=== PATIENT | male | born 1955 | race Caucasian/White ===

== ENCOUNTER → 2017-11-20 14:18 | Outpatient (CLI) | payer MEDICAID, SELFPAY ==
[2017-11-20 17:05] LABS: Absolute Neutrophil Count 2.7 X10^3/uL (2.0-7.7); Basophil# 0.02 X10^3/uL; Basophil% 0.5 % (0-1); Eosinophils% 2.5 % (0-5); Hematocrit 44.3 % (40-54); Hemoglobin 14.8 g/dl (13.0-16.5); Lymphocyte % 19.6 % (19-41); Mean Corp Hgb Conc 33.4 g/gl (32-36); Mean Corpuscular Hgb 29.9 pg (27.0-32.0); Mean Corpuscular Volume 89.5 fL (80-94); Monocyte# 0.47 X10^3/uL; Monocyte% 11.5 % (0-10); Neutrophil # 2.67 X10^3/uL (2.7-7.7); Neutrophil % 65.4 % (47-70); Platelet Count 147 K/mm3 (150-450); RBC Distribution Width SD 42.3 fl (35.1-43.9); Red Blood Count 4.95 M/mm3 (4.6-6.2); White Blood Count 4.1 K/mm3 (4.4-11.0)
[2017-11-20 17:48] LABS: POSITIVE COUNT NO; POSITIVE DIFFERENTIAL NO; POSITIVE MORPHOLOGY NO
[2017-11-20 17:51] LABS: ALB/GLOB Ratio 1.3 RATIO (0.9-2.4); AST(SGOT) 16 U/L (15-37); Alanine Aminotransfer ALT/SGPT 28 U/L (16-61); Albumin, Serum 3.9 g/dL (3.2-5.0); Alkaline Phosphatase 149 U/L (45-117); Anion Gap 8 (5-15); BUN 17 mg/dL (7-18); BUN/Creat Ratio 19.2 RATIO (10-20); Calcium,Total 8.5 mg/dL (8.5-10.1); Chloride 110 mmol/L (98-107); Creatinine, Serum 0.89 mg/dL (0.70-1.30); EST Glomerular Filtration Rate 92 mL/min (>60); Est Glom Filt Rate - Afr Amer 111 mL/min (>60); Glucose 129 mg/dL (74-106); PSA,Total - Annual Screen 0.91 ng/mL (0.00-4.00); Potassium 3.9 mmol/L (3.5-5.1); Protein, Total 6.9 g/dL (6.4-8.2); Sodium Level 144 mmol/L (136-145); Thyroid Stim Hormone (TSH) 2.35 uIU/mL (0.358-3.74)
== END ==
PROVIDERS: Family Provider Family Medicine Geriatric Medicine; PCP Family Medicine Geriatric Medicine; Visit Provider Family Medicine Geriatric Medicine
DX: R53.83 Other fatigue (principal); Z12.5 Encounter for screening for malignant neoplasm of prostate
CPT/HCPCS: 36415; 80053; 84153; 84443; 85025; G0103

== ENCOUNTER → 2018-06-03 16:30 | Outpatient (CLI) | payer MEDICAID, SELFPAY ==
[2018-06-03 17:11] LABS: Absolute Lymphocyte Count 0.79 X10^3/ul (0.83-4.51); Basophil# 0.01 X10^3/uL; Basophil% 0.2 % (0-1); Eosinophil# 0.06 X10^3/uL; Eosinophils% 1.4 % (0-5); Hematocrit 44.8 % (40-54); Hemoglobin 15.3 g/dl (13.0-16.5); Lymphocyte # 0.79 X10^3/ul (4.0); Lymphocyte % 18.4 % (19-41); Mean Corp Hgb Conc 34.2 g/gl (32-36); Mean Corpuscular Hgb 29.5 pg (27.0-32.0); Mean Corpuscular Volume 86.3 fL (80-94); Mean Platelet Vol. 10.8 fl (6.2-12.0); Monocyte# 0.42 X10^3/uL; Monocyte% 9.8 % (0-10); Platelet Count 149 K/mm3 (150-450); RBC Distribution Width CV 13.1 % (11.6-14.6); RBC Distribution Width SD 41.6 fl (35.1-43.9); Red Blood Count 5.19 M/mm3 (4.6-6.2); White Blood Count 4.3 K/mm3 (4.4-11.0)
[2018-06-03 17:14] LABS: POSITIVE COUNT NO; POSITIVE DIFFERENTIAL NO; POSITIVE MORPHOLOGY NO
[2018-06-03 17:27] LABS: ALB/GLOB Ratio 1.5 RATIO (0.9-2.4); AST(SGOT) 17 U/L (15-37); Alanine Aminotransfer ALT/SGPT 29 U/L (16-61); Albumin, Serum 4.2 g/dL (3.2-5.0); Alkaline Phosphatase 170 U/L (45-117); Anion Gap 5 (5-15); BUN 16 mg/dL (7-18); BUN/Creat Ratio 18.1 RATIO (10-20); Calcium,Total 8.4 mg/dL (8.5-10.1); Chloride 111 mmol/L (98-107); Creatinine, Serum 0.88 mg/dL (0.70-1.30); EST Glomerular Filtration Rate 92 mL/min (>60); Est Glom Filt Rate - Afr Amer 112 mL/min (>60); Globulin 2.8 g/dL (2.2-4.2); Glucose 128 mg/dL (74-106); Potassium 3.8 mmol/L (3.5-5.1); Sodium Level 141 mmol/L (136-145); Thyroid Stim Hormone (TSH) 1.79 uIU/mL (0.358-3.74)
== END ==
PROVIDERS: Family Provider Family Medicine Geriatric Medicine; PCP Family Medicine Geriatric Medicine; Visit Provider Family Medicine Geriatric Medicine
DX: R53.83 Other fatigue (principal)
CPT/HCPCS: 36415; 80053; 84443; 85025

== ENCOUNTER → 2019-01-21 15:12 | Outpatient (CLI) | payer MEDICARE, MEDICAID, SELFPAY ==
[2019-01-21 17:30] LABS: Absolute Lymphocyte Count 0.64 X10^3/uL (0.83-4.51); Absolute Neutrophil Count 2.9 X10^3/uL (2.0-7.7); Basophil# 0.02 X10^3/uL; Basophil% 0.5 % (0-1); Eosinophil# 0.06 X10^3/uL; Eosinophils% 1.5 % (0-5); Hematocrit 46.2 % (40-54); Hemoglobin 15.5 g/dL (13.0-16.5); Lymphocyte # 0.64 X10^3/ul (4.0); Lymphocyte % 15.9 % (19-41); Mean Corp Hgb Conc 33.5 g/dL (32-36); Mean Corpuscular Volume 89.4 fL (80-94); Mean Platelet Vol. 11.3 fl (6.2-12.0); Monocyte# 0.36 X10^3/uL; NRBC Flagged by Analyzer 0 % (0-5); Neutrophil # 2.92 X10^3/uL (2.7-7.7); Neutrophil % 72.6 % (47-70); Platelet Count 147 K/mm3 (150-450); RBC Distribution Width CV 12.4 % (11.6-14.6); RBC Distribution Width SD 40.8 fl (35.1-43.9); Red Blood Count 5.17 M/mm3 (4.6-6.2)
[2019-01-21 18:07] LABS: Vitamin D,25 Hydroxy 15.1 ng/mL (29.95-100.01)
[2019-01-21 18:16] LABS: ALB/GLOB Ratio 1.5 RATIO (0.9-2.4); AST(SGOT) 16 U/L (15-37); Alanine Aminotransfer ALT/SGPT 34 U/L (16-61); Albumin, Serum 4.1 g/dL (3.2-5.0); Alkaline Phosphatase 161 U/L (45-117); Anion Gap 6 (5-15); BUN 16 mg/dL (7-18); BUN/Creat Ratio 17.9 RATIO (10-20); Calcium,Total 8.3 mg/dL (8.5-10.1); Chloride 109 mmol/L (98-107); Creatinine, Serum 0.89 mg/dL (0.70-1.30); EST Glomerular Filtration Rate 91 mL/min (>60); Est Glom Filt Rate - Afr Amer 110 mL/min (>60); Globulin 2.8 g/dL (2.2-4.2); Glucose 124 mg/dL (74-106); Potassium 3.8 mmol/L (3.5-5.1); Protein, Total 6.9 g/dL (6.4-8.2); Sodium Level 141 mmol/L (136-145); Thyroid Stim Hormone (TSH) 2.08 uIU/mL (0.358-3.74)
== END ==
PROVIDERS: Family Provider Family Medicine Geriatric Medicine; PCP Family Medicine Geriatric Medicine; Visit Provider Family Medicine Geriatric Medicine
DX: E55.9 Vitamin D deficiency, unspecified (principal); R53.83 Other fatigue
CPT/HCPCS: 36415; 80053; 82306; 84443; 85025

== ENCOUNTER → 2019-07-20 15:00 | Outpatient (CLI) | payer MEDICARE, MEDICAID, SELFPAY ==
[2019-07-20 16:29] LABS: Absolute Lymphocyte Count 0.63 X10^3/uL (0.83-4.51); Basophil# 0.04 X10^3/uL; Basophil% 0.4 % (0-1); Hematocrit 44.7 % (40-54); Hemoglobin 15.3 g/dL (13.0-16.5); Lymphocyte # 0.63 X10^3/ul (4.0); Lymphocyte % 6.3 % (19-41); Mean Corp Hgb Conc 34.2 g/dL (32-36); Mean Corpuscular Hgb 30.4 pg (27.0-32.0); Mean Corpuscular Volume 88.7 fL (80-94); Mean Platelet Vol. 11.3 fl (6.2-12.0); Monocyte# 1.09 X10^3/uL; NRBC Flagged by Analyzer 0 % (0-5); Neutrophil # 8.01 X10^3/uL (2.7-7.7); Neutrophil % 80.5 % (47-70); Platelet Count 189 K/mm3 (150-450); RBC Distribution Width CV 12.1 % (11.6-14.6); RBC Distribution Width SD 39.2 fl (35.1-43.9); Red Blood Count 5.04 M/mm3 (4.6-6.2)
[2019-07-20 16:51] LABS: Vitamin D,25 Hydroxy 19.9 ng/mL
[2019-07-20 16:54] LABS: ALB/GLOB Ratio 1.1 RATIO (0.9-2.4); AST(SGOT) 20 U/L (15-37); Alanine Aminotransfer ALT/SGPT 55 U/L (16-61); Albumin, Serum 3.8 g/dL (3.2-5.0); Alkaline Phosphatase 177 U/L (45-117); Anion Gap 8 (5-15); BUN 21 mg/dL (7-18); BUN/Creat Ratio 25.8 RATIO (10-20); Calcium,Total 9.2 mg/dL (8.5-10.1); Chloride 103 mmol/L (98-107); Creatinine, Serum 0.81 mg/dL (0.70-1.30); EST Glomerular Filtration Rate 101 mL/min (>60); Est Glom Filt Rate - Afr Amer 122 mL/min (>60); Globulin 3.6 g/dL (2.2-4.2); Glucose 152 mg/dL (74-106); Potassium 3.6 mmol/L (3.5-5.1); Protein, Total 7.4 g/dL (6.4-8.2); Sodium Level 138 mmol/L (136-145); Thyroid Stim Hormone (TSH) 1.82 uIU/mL (0.358-3.74)
[2019-07-20 21:00] LABS: M R Staph aureus DNA By PCR Negative (Negative); Staph aureus DNA By PCR NEGATIVE (Negative)
[2019-07-20 21:01] LABS: Probe Check PASS; Specimen Processing Control PASS
== END ==
PROVIDERS: PCP Family Medicine Geriatric Medicine; Visit Provider Family Medicine Geriatric Medicine
DX: R53.83 Other fatigue (principal); E55.9 Vitamin D deficiency, unspecified; B95.62 Methicillin resistant Staphylococcus aureus infection as the cause of diseases classified elsewhere
CPT/HCPCS: 36415; 80053; 82306; 84443; 85025; 87070; 87077; 87205; 87640

== ENCOUNTER 2019-09-09 14:41 | Outpatient (RCR) | payer MEDICARE, MEDICAID, SELFPAY ==
[2019-09-09 15:25] VITALS: BP 135/84; PULSE 101; RESP 16; TEMP 36.6
--- NOTE | 2019-09-09 16:56 | HP.PCM_ITS ---
(1) Nonhealing surgical wound Status: Acute Current Visit: Yes Code(s): T81.89XA - Other complications of procedures, not elsewhere classified, initial encounter (2) Sebaceous cyst Status: Acute Current Visit: Yes Code(s): L72.3 - Sebaceous cyst (3) Tobacco abuse Status: Acute Current Visit: Yes Code(s): Z72.0 - Tobacco use (4) Anxiety Status: Acute Current Visit: Yes Code(s): F41.9 - Anxiety disorder, u nspecified (5) Depression Status: Acute Current Visit: Yes Code(s): F32.9 - Major depressive disorder, single episode, unspecified (6) Hyperlipidemia Status: Acute Current Visit: Yes Code(s): E78.5 - Hyperlipidemia, unspecified History of Present Illness Date of Service: 09/09/19 Chief Complaint: Nonhealing surgical wound status post I&D 6 weeks ago right upper back History of Wound: This is a 63-year-old white male who presents to the wound healing center today with a complaint of nonhealing wound to his right upper back status post incision and drainage of a sebaceous cyst by his primary care 6 weeks ago. He has a past medical history as listed above. For wound care he has been utilizing iodoform gauze and packing wet-to-dry dressings. He states that he has been on multiple antibiotics over the past 6 weeks and that site continues to have delayed wound healing. He denies any current symptoms of i nfection either localized or systemic. He denies any other acute concerns at this time. All other systems reviewed and negative with exception of those listed above. For wound care, his only member has been assisting with dressing changes at home. Past Medical History Allergies/Adverse Reactions: Allergies No Known Allergies Allergy (Verified 09/09/19 15:48) Home Medications: Ambulatory Orders Medication Instructions Recorded Bupropion HCl [Wellbutrin Xl] 150 mg PO BID 09/09/19 Clonazepam 0.5 mg PO TID PRN 09/09/19 Risperidone [Risperdal] 2 mg PO BID 09/09/19 Simvastatin 40 mg PO DAILY 09/09/19 traZODone [Desyrel] 50 mg PO QHS 09/09/19 Smoking Status: Current every day smoker Review of Systems Constitutional: Denies: Chills, Fever, Weight Change Eyes: Denies: Pain, Vision Change HEENT: Denies: Difficulty Hearing, Difficulty Swallowing, Sinus Congestion Cardiovascular: Denies: Chest Pain, Palpitations Respiratory: Denies: Cough, Shortness of Breath Gastrointestinal: Denies: Diarrhea, Nausea, Vomiting Genitourinary: Denies: Dysuria, Hematuria Skin: Reports: Wounds - See HPI Endocrine: Denies: Heat/ Cold Intolerance, Polydipsia, Polyuria Hematologic/ Lymphatic: Denies: Easy Bruising, Easy Bleeding - Physical Exam Vital Signs Temp Pulse Resp BP 97.9 F 101 H 16 135/84 H 09/09/19 15:25 09/09/19 15:25 09/09/19 15:25 09/09/19 15:25 General: Alert, Oriented x3, Cooperative, No apparent distress HEENT: Atraumatic Oral: Moist Mucosa Neck: Supple, No JVD Lungs: Diminished, Wheezes Cardiovascular: Regular rate, Regular Rhythm, Normal S1, Normal S2, No murmurs, No Ectopic Activity Abdomen: Soft, Non Tender Extremities: No clubbing, No cyanosis, No edema Skin: Ulcer/ Wound - Nonhealing wound with large amount of adherent slough right upper back status post incision and drainage sebaceous cyst, no drainage or foul smelling discharge noted at this time Wound Measurements and Assessment WC - Nurse 1 - General Ulcer Measurement Start: 09/09/19 15:25 Freq: Status: Active Protocol: Activity Type Activity Date Activity User E-Sign Co-Sign Detail Recorded Client Recorded Date Recorded By Document 09/09/19 15:25 [facility] [id number] 09/09/19 15:47 [facility] 09/09/19 15:25 Wound Center Nurse 1 [Ulcer Assessment] #1- R SCAPULA -Combined with other wound No -Current Size (cm) - Length 0.5 -Current Size (cm) - Width 1.9 -Current Size (cm) - Depth 0.7 -Total Square Cm 0.95 -Date of Last Picture (Recall this 09/09/19 field) -Photo Taken Yes -Epithelialization None Present -Tunneling No -Undermining/Tunneling Yes -Undermining/Tunneling Starts (O' 9 clock) -Undermining/Tunneling Ends (O'clock) 3 -Maximum Distance (cm) 1 -Undermining/Tunneling Starts #2 (O' 4 clock) -Undermining/Tunneling Ends #2 (O' 8 clock) -Maximum Distance #2 (cm) 0.6 -Circular Undermining No -Exudate Amt Small -Exudate Type Serous -Wound Margin Thickened & Rolled Under -Granulation Amt Small (1-33%) -Granulation Quality [place] -Slough/Fibrin Yes -Necrosis Amt Large (67-100%) -Necrotic Tissue Type Adherent Slough -Texture (Carrie-wound Skin Appearance) Assessed, Scarring -Moisture (Carrie-wound Skin Appearance Assessed ) -Color (Carrie-wound Skin Appearance) Assessed -Temperature (Carrie-wound Skin No Abnormality Appearance) (Pt Warm) -Tenderness on Palpation (Carrie-wound No Skin Appearance) -Ulcer Cleansing Rinsed/ Irrigated with Saline -Foul Odor after Cleansing No -Anesthetic Used 5% Lidocaine Gel WC - Nurse 2 - General Ulcer CM Notes Start: 09/09/19 15:25 Freq: Status: Active Protocol: Activity Type Activity Date Activity User E-Sign Co-Sign Detail Recorded Client Recorded Date Recorded By Document 09/09/19 16:16 MW [id number] 09/09/19 16:27 MW 09/09/19 16:16 Wound Center Nurse 2 [Procedure/Treatment] -Time 16:16 -Correct Patient Yes -Correct Side, Site, Position Yes -Correct Procedure Yes -Procedure Performed Yes -Type of Procedure Debridement -Clinical Debridement Subcutaneous -Post Debridement Size (cm) - Length 0.7 -Post Debridement Size (cm) - Width 2.0 -Post Debridement Size (cm) - Depth 0.8 -Total Square (cm) 1.40 -Wound/Ulcer Outcome Not Healed -Ulcer Cleansing Rinsed/ Irrigated with Saline -Foul Odor after Cleansing No -Bioengineered Tissue No -Bleeding Controlled with Pressure -Offloading No -Treatment Response Procedure Tolerated Well [See Physician Procedure note for Specifics] Pain Scale: 0-10 Numeric [Pain] -Is Patient Pain Free? Yes Neurological: Neuro grossly intact Psych/Mental Status: Normal Affect, Appropriate, Alert and oriented to time, place, person, mood and affect Debridement Note Post-Debridement Measurements/Treatment WC - Nurse 2 - General Ulcer CM Notes Start: 09/09/19 15:25 Freq: Status: Active Protocol: Activity Type Activity Date Activity User E-Sign Co-Sign Detail Recorded Client Recorded Date Recorded By Document 07/30/20 16:16 MW [id number] 09/09/19 16:27 MW 09/09/19 16:16 Wound Center Nurse 2 #1- R SCAPULA -Time 16:16 -Correct Patient Yes -Correct Side, Site, Position Yes -Correct Procedure Yes -Procedure Performed Yes -Type of Procedure Debridement -Clinical Debridement Subcutaneous -Post Debridement Size (cm) - Length 0.7 -Post Debridement Size (cm) - Width 2.0 -Post Debridement Size (cm) - Depth 0.8 -Total Square (cm) 1.40 -Wound/Ulcer Outcome Not Healed -Ulcer Cleansing Rinsed/ Irrigated with Saline -Foul Odor after Cleansing No -Bioengineered Tissue No -Bleeding Controlled with Pressure -Offloading No -Treatment Response Procedure Tolerated Well Pain Scale: 0-10 Numeric Is Patient Pain Free? Yes Wound debrided: Nonhealing surgical wound right upper back status post incision and drainag Laterality: Right Type of Debridement: Excisional debridement Anesthesia Used: 5% Lidocaine Gel Depth: in the subcutaneous layer Percentage of wound debrided: 100 Instrument Used: 7mm curette Tissue Removed: Slough and devitalized tissue Severity: Fat Layer Exposed Amount of bleeding with debridement: Mild Bleeding Controlled with: Pressure Patient tolerated procedure well Assessment/Plan Active Problems Nonhealing surgical wound (Acute) Sebaceous cyst (Acute) Tobacco abuse (Acute) Anxiety (Acute) Depression (Acute) Hyperlipidemia (Acute) Assessment: See above diagnoses Plan: The patient was seen and examined at the wound center today and was updated on the plan of care. A subcutaneous debridement was performed today. The patient tolerated the procedure well. The patients wound care will consist of: Application of silver cell rope packed and changed daily, will apply for the use of a snap VAC. Given the delayed wound healing and failure of wound to heal with standard wound care in the last 6 weeks will apply for an advanced skin substitute. Wound cultures were collected. Baseline bloodwork held. Patient educated on the importance of diet on wound healing and instructed to increase protein and vitamin C intake. Patient verbalized understanding. Patient will follow up at wound healing center in one week or sooner if needed. This note was generated with [employer] software. It may contain incorrect words, spelling, and punctuation that were not noted in checking the note before signing. Office Visits / Consults: [id number] OV L3 New [id number]: [id number] Denice subq tissue 20 sq cm/<
== END 2019-09-10 23:59 ==
LOC: WC 14:41
PROVIDERS: PCP Family Medicine Geriatric Medicine; Referring Provider Nurse Practitioner; Visit Provider Nurse Practitioner
DX: T81.89XA Other complications of procedures, not elsewhere classified, initial encounter (principal); Y83.8 Other surgical procedures as the cause of abnormal reaction of the patient, or of later complication, without mention of misadventure at the time of the procedure; E78.5 Hyperlipidemia, unspecified; F32.9 Major depressive disorder, single episode, unspecified; F41.9 Anxiety disorder, unspecified; Z79.899 Other long term (current) drug therapy; F17.200 Nicotine dependence, unspecified, uncomplicated
CPT/HCPCS: 11042; 87070; 87075; 87205; 99203; G0463

== ENCOUNTER 2019-10-07 14:30 | Outpatient (RCR) | payer MEDICARE, MEDICAID, SELFPAY ==
[2019-09-11 00:43] VITALS: BP 135/84; PULSE 101; RESP 16; TEMP 36.6
[2019-09-16 15:30] VITALS: BP 148/85; PULSE 100; RESP 16; TEMP 36.6
--- NOTE | 2019-09-16 19:47 | PCM.WC.PN ---
(1) Nonhealing surgical wound Status: Acute Current Visit: Yes Code(s): T81.89XA - Other complications of procedures, not elsewhere classified, initial encounter (2) Anxiety Status: Acute Current Visit: No Code(s): F41.9 - Anxiety disorder, unspecified (3) Sebaceous cyst Status: Acute Current Visit: Yes Code(s): L72.3 - Sebaceous cyst (4) Depression Status: Acute Current Visit: No Code(s): F32.9 - Major depressive disorder, single episode, unspecified (5) Hyperlipidemia Status: Acute Current Visit: No Code(s): E78.5 - Hyperlipidemia, unspecified (6) Tobacco abuse Status: Acute Current Visit: No Code(s): Z72.0 - Tobacco use Type of Wound Date of Service: 09/16/19 Chief Complaint: Nonhealing surgical wound status post I&D 6 weeks ago right upper back History of Wound: This is a 63-year-old white male who presents to the wound healing center today with a complaint of nonhealing wound to his right upper back status post incision and drainage of a sebaceous cyst by his primary care 6 weeks ago. He has a past medical history as listed above. For wound care he has been utilizing iodoform gauze and packing wet-to-dry dressings. He states that he has been on multiple antibiotics over the past 6 weeks and that site continues to have delayed wound healing. He denies any current symptoms of infection either localized or systemic. He denies any other acute concerns at this time. All other systems reviewed and negative with exception of those listed above. For wound care, his only member has been assisting with dressing changes at home. Progress of Wound: 09/16/2019?no new concerns, snap VAC was approved and will be applied today - Physical Exam Vital Signs Temp Pulse Resp BP 98 F 100 16 148/85 H 09/16/19 15:30 09/16/19 15:30 09/16/19 15:30 09/16/19 15:30 General: Alert, Oriented x3, Cooperative, No apparent distress HEENT: Atraumatic Oral: Moist Mucosa Lungs: Clear to auscultation Cardiovascular: Regular rate Abdomen: Soft, Non Tender Extremities: No clubbing, No cyanosis, No edema Skin: Ulcer/ Wound - See nursing documentation, wound to right upper back with slough and devitalized tissue, less undermining this week. Wound Measurements and Assessment WC - Nurse 1 - General Ulcer Measurement Start: 09/16/19 15:30 Freq: Status: Active Protocol: Activity Type Activity Date Activity User E-Sign Co-Sign Detail Recorded Client Recorded Date Recorded By Document 09/16/19 15:30 [facility] [id number] 09/16/19 15:38 [facility] 09/16/19 15:30 Wound Center Nurse 1 [Ulcer Assessment] #1- R SCAPULA -Combined with other wound No -Current Size (cm) - Length 0.5 -Current Size (cm) - Width 1.6 -Current Size (cm) - Depth 0.7 -Total Square Cm 0.80 -Photo Taken No -Epithelialization Small 1-33% -Tunneling Yes -Tunneling Position (O'clock) 1 -Tunneling Distance (cm) 0.6 -Undermining/Tunneling No -Circular Undermining No -Exudate Amt Small -Exudate Type Serous -Wound Margin Thickened -Granulation Amt Medium (34-66%) -Granulation Quality Red -Slough/Fibrin Yes -Necrosis Amt Small (1-33%) -Necrotic Tissue Type Adherent Slough -Texture (Carrie-wound Skin Appearance) Assessed, Scarring -Moisture (Carrie-wound Skin Appearance Assessed ) -Color (Carrie-wound Skin Appearance) Assessed -Temperature (Carrie-wound Skin No Abnormality Appearance) (Pt Warm) -Tenderness on Palpation (Carrie-wound No Skin Appearance) -Ulcer Cleansing Rinsed/ Irrigated with Saline -Foul Odor after Cleansing No -Anesthetic Used 5% Lidocaine Gel WC - Nurse 2 - General Ulcer CM Notes Start: 09/16/19 15:30 Freq: Status: Active Protocol: Activity Type Activity Date Activity User E-Sign Co-Sign Detail Recorded Client Recorded Date Recorded By Document 09/16/19 16:04 MW [id number] 09/16/19 16:10 MW 09/16/19 16:04 Wound Center Nurse 2 [Procedure/Treatment] -Time 16:05 -Correct Patient Yes -Correct Side, Site, Position Yes -Correct Procedure Yes -Procedure Performed Yes -Type of Procedure Debridement -Clinical Debridement Subcutaneous -Post Debridement Size (cm) - Length 0.9 -Post Debridement Size (cm) - Width 1.8 -Post Debridement Size (cm) - Depth 0.7 -Total Square (cm) 1.62 -Wound/Ulcer Outcome Not Healed -Ulcer Cleansing Rinsed/ Irrigated with Saline -Foul Odor after Cleansing No -Bioengineered Tissue No -Bleeding Controlled with Pressure -Other UNDERMINING 11- 2, 0.5CM -Offloading No -Treatment Response Procedure Tolerated Well [See Physician Procedure note for Specifics] Pain Scale: 0-10 Numeric [Pain] -Is Patient Pain Free? Yes Neurological: Neuro grossly intact Psych/Mental Status: Normal Affect, Appropriate, Alert and oriented to time, place, person, mood and affect Debridement Note Post-Debridement Measurements/Treatment WC - Nurse 2 - General Ulcer CM Notes Start: 09/16/19 15:30 Freq: Status: Active Protocol: Activity Type Activity Date Activity User E-Sign Co-Sign Detail Recorded Client Recorded Date Recorded By Document 09/16/19 16:04 MW [id number] 09/16/19 16:10 MW 09/16/19 16:04 Wound Center Nurse 2 #1- R SCAPULA -Time 16:05 -Correct Patient Yes -Correct Side, Site, Position Yes -Correct Procedure Yes -Procedure Performed Yes -Type of Procedure Debridement -Clinical Debridement Subcutaneous -Post Debridement Size (cm) - Length 0.9 -Post Debridement Size (cm) - Width 1.8 -Post Debridement Size (cm) - Depth 0.7 -Total Square (cm) 1.62 -Wound/Ulcer Outcome Not Healed -Ulcer Cleansing Rinsed/ Irrigated with Saline -Foul Odor after Cleansing No -Bioengineered Tissue No -Bleeding Controlled with Pressure -Other UNDERMINING 11- 2, 0.5CM -Offloading No -Treatment Response Procedure Tolerated Well Pain Scale: 0-10 Numeric Is Patient Pain Free? Yes Wound debrided: Wound right upper upper back Type of Debridement: Excisional debridement Anesthesia Used: 5% Lidocaine Gel Depth: in the subcutaneous layer Percentage of wound debrided: 100 Instrument Used: 5mm curette Tissue Removed: Slough and devitalized tissue Severity: Fat Layer Exposed Amount of bleeding with debridement: Mild Bleeding Controlled with: Pressure Patient tolerated procedure well Assessment/Plan Active Problems Nonhealing surgical wound (Acute) Sebaceous cyst (Acute) Assessment: See above diagnoses Plan: The patient was seen and examined at the wound center today and was updated on the plan of care. A subcutaneous debridement was performed today. The patient tolerated the procedure well. The patients wound care will consist of: Application of snap VAC Today change twice weekly. Given the delayed wound healing and failure of wound to heal with standard wound care in the last 6 weeks will apply for an advanced skin substitute. Wound cultures were collected prior negative. Baseline bloodwork held. Patient educated on the importance of diet on wound healing and instructed to increase protein and vitamin C intake. Patient verbalized understanding. Patient will follow up at wound healing center in one week or sooner if needed. This note was generated with [employer] dictation software. It may contain incorrect words, spelling, and punctuation that were not noted in checking the note before signing. [id number]: [id number] Denice subq tissue 20 sq cm/<
[2019-09-21 13:18] VITALS: BP 142/84; PULSE 103; RESP 16; TEMP 36.5
[2019-09-23 15:11] VITALS: BP 125/83; PULSE 110; RESP 20; TEMP 36.7
--- NOTE | 2019-09-23 21:25 | PN.PCM_ITS ---
(1) Nonhealing surgical wound Status: Acute Code(s): T81.89XA - Other complications of procedures, not elsewhere classified, initial encounter (2) Anxiety Status: Acute Code(s): F41.9 - Anxiety disorder, unspecified (3) Sebaceous cyst Status: Acute Code(s): L72.3 - Sebaceous cyst (4) Depression Status: Acute Code(s): F32.9 - Major depressive disorder, single episode, unspecified (5) Hyperlipidemia Status: Acute Code(s): E78.5 - Hyperlipidemia, unspecified (6) Tobacco abuse Status: Acute Code(s): Z72.0 - Tobacco use Type of Wound Date of Service: 09/23/19 Chief Complaint: Nonhealing surgical wound status post I&D 6 weeks ago right upper back History of Wound: This is a 63-year-old white male who presents to the wound healing center today with a complaint of nonhealing wound to his right upper back status post incision and drainage of a sebaceous cyst by his primary care 6 weeks ago. He has a past medical history as listed above. For wound care he has been utilizing iodoform gauze and packing wet-to-dry dressings. He states that he has been on multiple antibiotics over the past 6 weeks and that site continues to have delayed wound healing. He denies any current symptoms of infection either localized or systemic. He denies any other acute concerns at this time. All other systems reviewed and negative with exception of those listed above. For wound care, his only member has been assisting with dressing changes at home. Progress of Wound: 09/16/2019?no new concerns, snap VAC was approved and will be applied today. 09/23/19-no new concerns, tolerating VAC well - Physical Exam Vital Signs Temp Pulse Resp BP 98.1 F 110 H 20 H 125/83 H 09/23/19 15:11 09/23/19 15:11 09/23/19 15:11 09/23/19 15:11 General: Alert, Oriented x3, Cooperative, No apparent distress HEENT: Atraumatic Oral: Moist Mucosa Lungs: Clear to auscultation Cardiovascular: Regular rate Extremities: No clubbing, No cyanosis, No edema Skin: Ulcer/ Wound - see nursing documentation, slough and devitalized tissue Musculoskeletal: No Tenderness to Palpation of Joints or Extremities Neurological: Neuro grossly intact Psych/Mental Status: Normal Affect, Appropriate, Alert and oriented to time, place, person, mood and affect Debridement Note Post-Debridement Measurements/Treatment WC - Nurse 2 - General Ulcer CM Notes Start: 09/16/19 15:30 Freq: Status: Active Protocol: Activity Type Activity Date Activity User E-Sign Co-Sign Detail Recorded Client Recorded Date Recorded By Document 09/16/19 16:04 MW [id number] 09/16/19 16:10 MW Document 09/23/19 15:31 MW [id number] 09/23/19 15:34 MW 09/16/19 09/23/19 16:04 15:31 Wound Center Nurse 2 #1- R SCAPULA -Time 16:05 15:32 -Correct Patient Yes Yes -Correct Side, Site, Position Yes Yes -Correct Procedure Yes Yes -Procedure Performed Yes Yes -Type of Procedure Debridement Debridement -Clinical Debridement Subcutaneous Subcutaneous -Post Debridement Size (cm) - Length 0.9 0.8 -Post Debridement Size (cm) - Width 1.8 1.4 -Post Debridement Size (cm) - Depth 0.7 0.7 -Total Square (cm) 1.62 1.12 -Wound/Ulcer Outcome Not Healed Not Healed -Ulcer Cleansing Rinsed/ Rinsed/ Irrigated with Irrigated with Saline Saline -Foul Odor after Cleansing No No -Bioengineered Tissue No No -Bleeding Controlled with Pressure Pressure -Other UNDERMINING 11- 2, 0.5CM -Offloading No No -Treatment Response Procedure Procedure Tolerated Well Tolerated Well Pain Scale: 0-10 Numeric Is Patient Pain Free? Yes Yes Wound debrided: Right upper back wound Type of Debridement: Excisional debridement Anesthesia Used: 5% Lidocaine Gel Depth: in the subcutaneous layer Percentage of wound debrided: 100 Instrument Used: 3mm curette, 5mm curette Tissue Removed: slough and devitalized tissue Severity: Fat Layer Exposed Amount of bleeding with debridement: Mild Bleeding Controlled with: Pressure Patient tolerated procedure well Assessment/Plan Assessment: See above diagnoses Plan: The patient was seen and examined at the wound center today and was updated on the plan of care. A subcutaneous debridement was performed today. The patient tolerated the procedure well. The patients wound care will consist of: Application of snap VAC Today change twice weekly. Given the delayed wound healing and failure of wound to heal with standard wound care in the last 6 weeks will apply for an advanced skin substitute. Wound cultures were collected prior negative. Baseline bloodwork held. Patient educated on the importance of diet on wound healing and instructed to increase protein and vitamin C intake. Patient verbalized understanding. Patient will follow up at wound healing center in one week or sooner if needed. This note was generated with [employer] dictation software. It may contain incorrect words, spelling, and punctuation that were not noted in checking the note before signing. [id number]: [id number] Denice subq tissue 20 sq cm/<
[2019-09-28 15:08] VITALS: BP 136/82; PULSE 97; RESP 18; TEMP 36.7
[2019-09-30 15:00] VITALS: BP 138/90; PULSE 88; RESP 111; TEMP 36.8
--- NOTE | 2019-09-30 17:10 | PN.PCM_ITS ---
(1) Nonhealing surgical wound Status: Acute Current Visit: Yes Code(s): T81.89XA - Other complications of procedures, not elsewhere classified, initial encounter (2) Anxiety Status: Acute Current Visit: No Code(s): F41.9 - Anxiety disorder, unspecified (3) Sebaceous cyst Status: Acute Current Visit: Yes Code(s): L72.3 - Sebaceous cyst (4) Depression Status: Acute Current Visit: No Code(s): F32.9 - Major depressive disorder, single episode, unspecified (5) Hyperlipidemia Status: Acute Current Visit: No Code(s): E78.5 - Hyperlipidemia, unspecified (6) Tobacco abuse Status: Acute Current Visit: No Code(s): Z72.0 - Tobacco use Type of Wound Date of Service: 09/30/19 Chief Complaint: Nonhealing surgical wound status post I&D 6 weeks ago right upper back History of Wound: This is a 63-year-old white male who presents to the wound healing center today with a complaint of nonhealing wound to his right upper back status post incision and drainage of a sebaceous cyst by his primary care 6 weeks ago. He has a past medical history as listed above. For wound care he has been utilizing iodoform gauze and packing wet-to-dry dressings. He states that he has been on multiple antibiotics over the past 6 weeks and that site continues to have delayed wound healing. He denies any current symptoms of infection either localized or systemic. He denies any other acute concerns at this time. All other systems reviewed and negative with exception of those listed above. For wound care, his only member has been assisting with dressing changes at home. Progress of Wound: 09/16/2019?no new concerns, snap VAC was approved and will be applied today. 09/23/19-no new concerns, tolerating VAC well. 09/30/19-patient complains of surrounding tissue around the back being irritated and itchy, otherwise no new concerns - Physical Exam Vital Signs Temp Pulse Resp BP 98.3 F 88 111 H 138/90 H 09/30/19 15:00 09/30/19 15:00 09/30/19 15:00 09/30/19 15:00 General: Alert, Oriented x3, Cooperative, No apparent distress HEENT: Atraumatic Oral: Moist Mucosa Lungs: Clear to auscultation, Normal air movement Cardiovascular: Regular rate Abdomen: Soft, Non Tender Extremities: No clubbing, No cyanosis, No edema Skin: Ulcer/ Wound - See nursing documentation, right upper back wound with adherent slough, no surrounding tissue is excoriated and erythematous consistent with that of dermatitis Wound Measurements and Assessment WC - Nurse 1 - General Ulcer Measurement Start: 09/16/19 15:30 Freq: Status: Active Protocol: Activity Type Activity Date Activity User E-Sign Co-Sign Detail Recorded Client Recorded Date Recorded By Document 09/28/19 15:08 DL [id number] 09/28/19 15:12 DL Document 09/30/19 15:00 DL [id number] 09/30/19 15:06 DL 09/28/19 09/30/19 15:08 15:00 Wound Center Nurse 1 [Ulcer Assessment] #1- R SCAPULA -Current Size (cm) - Length 0.7 -Current Size (cm) - Width 1 -Current Size (cm) - Depth 0.5 -Total Square Cm 0.7 -Undermining/Tunneling Starts (O' 12 clock) -Undermining/Tunneling Ends (O'clock) 1 -Maximum Distance (cm) 0.3 -Exudate Amt Small Small -Exudate Type Serosanguineous Serosanguineous -Wound Margin Distinct, Thickened Outline Attached -Granulation Amt Large (67-100%) Large (67-100%) -Granulation Quality Red Pale -Necrosis Amt None Present (0 None Present (0 %) %) -Structure Exposed N/A N/A -Texture (Carrie-wound Skin Appearance) Scarring,Rash Excoriation, Scarring,Rash -Moisture (Carrie-wound Skin Appearance No Abnormality No Abnormality ) -Color (Carrie-wound Skin Appearance) Rubor Erythema,Rubor -Temperature (Carrie-wound Skin No Abnormality No Abnormality Appearance) (Pt Warm) (Pt Warm) -Tenderness on Palpation (Carrie-wound No No Skin Appearance) -Ulcer Cleansing Wound Cleanser Wound Cleanser -Foul Odor after Cleansing No No -Anesthetic Used 4% Lidocaine Solution WC - Nurse 2 - General Ulcer CM Notes Start: 09/27/19 23:33 Freq: Status: Active Protocol: Activity Type Activity Date Activity User E-Sign Co-Sign Detail Recorded Client Recorded Date Recorded By Document 09/30/19 15:36 MW [id number] 09/30/19 15:40 MW 09/30/19 15:36 Wound Center Nurse 2 [Procedure/Treatment] -Time 15:37 -Correct Patient Yes -Correct Side, Site, Position Yes -Correct Procedure Yes -Procedure Performed Yes -Type of Procedure Incision & Drainage -Clinical Debridement Subcutaneous -Tissue Removed Subcutaneous -Post Debridement (cm) - Length 0.9 -Post Debridement (cm) - Width 1.5 -Post Debridement (cm) - Depth 0.6 -Total Square (Post) (cm) 1.35 -Area of Debridement (cm) - Length 0.9 -Area of Debridement (cm) - Width 1.5 -Total Square (Area) (cm) 1.35 -Tunneling No -Undermining/Tunneling Yes -Undermining/Tunneling Starts (O' 11 clock) -Undermining/Tunneling Ends (O'clock) 1 -Maximum Distance (cm) 0.8 -Circular Undermining No -Wound/Ulcer Outcome Not Healed -Ulcer Cleansing Rinsed/ Irrigated with Saline -Foul Odor after Cleansing No -Bioengineered Tissue No -Bleeding Controlled with Pressure -Offloading No -Treatment Response Procedure Tolerated Well -Debridement - Subq, 1st 20sq cm Yes [See Physician Procedure note for Specifics] Pain Scale: 0-10 Numeric [Pain] -Is Patient Pain Free? Yes WC - Nurse 3 - General Ulcer D/C NN Start: 09/27/19 23:33 Freq: Status: Active Protocol: Activity Type Activity Date Activity User E-Sign Co-Sign Detail Recorded Client Recorded Date Recorded By Document 09/28/19 15:08 DL [id number] 09/28/19 15:12 DL Document 09/30/19 15:49 DL [id number] 09/30/19 15:50 DL 09/28/19 09/30/19 15:08 15:49 Pain Scale: 0-10 Numeric [Pain] -Is Patient Pain Free? Yes Yes Wound Care Nurse 3 [Wound Dressing] #1- R SCAPULA -Ulcer Cleansing Wound Cleanser Rinsed/ Irrigated with Saline -Foul Odor after Cleansing No -Negative Pressure Wound Therapy Continue -Setting (mmHg) 125 -Negative Pressure is Continuous -Primary Dressing Applied Promogran Yari Matter -Primary Dressing Covered/Secured Dry Gauze, with Secured with Tape -NPWT Application Charge ($) NPWT </= 50 sq cm (disp) -Promogran Yari Matter 1 [Post Procedure Tolerated] -Treatment Response Procedure Procedure Tolerated Well Tolerated Well WC - Visit Discharge [Visit Discharge Information] -Discharge Condition Stable Stable -Ambulatory Status Ambulatory Ambulatory -Transportation Private Auto Private Auto Neurological: Neuro grossly intact Psych/Mental Status: Normal Affect, Appropriate, Alert and oriented to time, place, person, mood and affect Debridement Note Post-Debridement Measurements/Treatment WC - Nurse 2 - General Ulcer CM Notes Start: 09/27/19 23:33 Freq: Status: Active Protocol: Activity Type Activity Date Activity User E-Sign Co-Sign Detail Recorded Client Recorded Date Recorded By Document 09/30/19 15:36 MW [id number] 09/30/19 15:40 MW 09/30/19 15:36 Wound Center Nurse 2 #1- R SCAPULA -Time 15:37 -Correct Patient Yes -Correct Side, Site, Position Yes -Correct Procedure Yes -Procedure Performed Yes -Type of Procedure Incision & Drainage -Clinical Debridement Subcutaneous -Tissue Removed Subcutaneous -Post Debridement (cm) - Length 0.9 -Post Debridement (cm) - Width 1.5 -Post Debridement (cm) - Depth 0.6 -Total Square (Post) (cm) 1.35 -Area of Debridement (cm) - Length 0.9 -Area of Debridement (cm) - Width 1.5 -Total Square (Area) (cm) 1.35 -Tunneling No -Undermining/Tunneling Yes -Undermining/Tunneling Starts (O'clock 11 ) -Undermining/Tunneling Ends (O'clock) 1 -Maximum Distance (cm) 0.8 -Circular Undermining No -Wound/Ulcer Outcome Not Healed -Ulcer Cleansing Rinsed/ Irrigated with Saline -Foul Odor after Cleansing No -Bioengineered Tissue No -Bleeding Controlled with Pressure -Offloading No -Treatment Response Procedure Tolerated Well -Debridement - Subq, 1st 20sq cm Yes Pain Scale: 0-10 Numeric Is Patient Pain Free? Yes WC - Nurse 3 - General Ulcer D/C NN Start: 09/27/19 23:33 Freq: Status: Active Protocol: Activity Type Activity Date Activity User E-Sign Co-Sign Detail Recorded Client Recorded Date Recorded By Document 09/28/19 15:08 DL [id number] 09/28/19 15:12 DL Document 09/30/19 15:49 DL [id number] 09/30/19 15:50 DL 09/28/19 09/30/19 15:08 15:49 Pain Scale: 0-10 Numeric Is Patient Pain Free? Yes Yes Wound Care Nurse 3 #1- R SCAPULA -Ulcer Cleansing Wound Cleanser Rinsed/ Irrigated with Saline -Foul Odor after Cleansing No -Negative Pressure Wound Therapy Continue -Setting (mmHg) 125 -Negative Pressure is Continuous -Primary Dressing Applied Promogran Yari Matter -Primary Dressing Covered/Secured with Dry Gauze, Secured with Tape -NPWT Application Charge ($) NPWT </= 50 sq cm (disp) -Promogran Yari Matter 1 Treatment Response Procedure Procedure Tolerated Well Tolerated Well WC - Visit Discharge Discharge Condition Stable Stable Ambulatory Status Ambulatory Ambulatory Transportation Private Auto Private Auto Wound debrided: Right upper back wound Laterality: Right Type of Debridement: Excisional debridement Anesthesia Used: 5% Lidocaine Gel Depth: in the subcutaneous layer Percentage of wound debrided: 100 Instrument Used: 5mm curette Tissue Removed: Slough and devitalized tissue Severity: Fat Layer Exposed Amount of bleeding with debridement: Mild Bleeding Controlled with: Pressure Patient tolerated procedure well Assessment/Plan Active Problems Nonhealing surgical wound (Acute) Sebaceous cyst (Acute) Assessment: See above diagnoses Plan: The patient was seen and examined at the wound center today and was updated on the plan of care. A subcutaneous debridement was performed today. The patient tolerated the procedure well. The patients wound care will consist of: Application of Yari, change daily, snap on hold due to surrounding skin i rritation/excoriation. He may utilize [id number] hydrocortisone cream to surrounding area. Given the delayed wound healing and failure of wound to heal with standard wound care in the last 6 weeks will apply for an advanced skin substitute. Wound cultures were collected prior negative. Baseline bloodwork held. Patient educated on the importance of diet on wound healing and instructed to increase protein and vitamin C intake. Patient verbalized understanding. Patient will follow up at wound healing center in one week or sooner if needed. This note was generated with [employer] software. It may contain incorrect words, spelling, and punctuation that were not noted in checking the note before signing. [id number]: [id number] Denice subq tissue 20 sq cm/<
[2019-10-05 13:02] VITALS: BP 129/78; PULSE 102; RESP 20; TEMP 37.5
[2019-10-07 14:32] VITALS: BP 129/79; PULSE 103; RESP 20; TEMP 37.1
--- NOTE | 2019-10-10 15:26 | PN.PCM_ITS ---
(1) Nonhealing surgical wound Status: Acute Code(s): T81.89XA - Other complications of procedures, not elsewhere classified, initial encounter (2) Anxiety Status: Acute Code(s): F41.9 - Anxiety disorder, unspecified (3) Sebaceous cyst Status: Acute Code(s): L72.3 - Sebaceous cyst (4) Depression Status: Acute Code(s): F32.9 - Major depressive disorder, single episode, unspecified (5) Hyperlipidemia Status: Acute Code(s): E78.5 - Hyperlipidemia, unspecified (6) Tobacco abuse Status: Acute Code(s): Z72.0 - Tobacco use Type of Wound Date of Service: 10/07/19 Chief Complaint: Nonhealing surgical wound status post I&D 6 weeks ago right upper back History of Wound: This is a 63-year-old white male who presents to the wound healing center today with a complaint of nonhealing wound to his right upper back status post incision and drainage of a sebaceous cyst by his primary care 6 weeks ago. He has a past medical history as listed above. For wound care he has been utilizing iodoform gauze and packing wet-to-dry dressings. He states that he has been on multiple antibiotics over the past 6 weeks and that site continues to have delayed wound healing. He denies any current symptoms of infection either localized or systemic. He denies any other acute concerns at this time. All other systems reviewed and negative with exception of those listed above. For wound care, his only member has been assisting with dressing changes at home. Progress of Wound: 09/16/2019?no new concerns, snap VAC was approved and will be applied today. 09/23/19-no new concerns, tolerating VAC well. 09/30/19-patient complains of surrounding tissue around the back being irritated and itchy, otherwise no new concerns. 10/07/2019?no new complaints, patient doing well with current treatment plan. - Physical Exam Vital Signs Temp Pulse Resp BP 98.7 F 103 H 20 H 129/79 H 10/07/19 14:32 10/07/19 14:32 10/07/19 14:32 10/07/19 14:32 General: Alert, Oriented x3, Cooperative, No apparent distress HEENT: Atraumatic Oral: Moist Mucosa Lungs: Clear to auscultation Cardiovascular: Regular rate Abdomen: Soft, Non Tender Extremities: No cyanosis, No edema Skin: Ulcer/ Wound - See nursing documentation, slough and devitalized tissue present, no signs of obvious infection at this time Wound Measurements and Assessment - Nurse 1 - General Ulcer Measurement Start: 09/16/19 15:30 Freq: Status: Active Protocol: Activity Type Activity Date Activity User E-Sign Co-Sign Detail Recorded Client Recorded Date Recorded By Document 10/07/19 14:32 DL [id number] 10/07/19 14:38 DL 10/07/19 14:32 Wound Center Nurse 1 [Ulcer Assessment] #1- R SCAPULA -Current Size (cm) - Length 0.7 -Current Size (cm) - Width 1.2 -Current Size (cm) - Depth 0.7 -Total Square Cm 0.84 -Photo Taken No -Maximum Distance #2 (cm) 0.2 -Circular Undermining Yes -Exudate Amt Small -Exudate Type Serosanguineous -Granulation Amt Medium (34-66%) -Granulation Quality Pale -Necrosis Amt Medium (34-66%) -Necrotic Tissue Type Adherent Slough -Structure Exposed N/A -Texture (Carrie-wound Skin Appearance) Scarring -Moisture (Carrie-wound Skin Appearance No Abnormality ) -Color (Carrie-wound Skin Appearance) No Abnormality -Temperature (Carrie-wound Skin No Abnormality Appearance) (Pt Warm) -Tenderness on Palpation (Carrie-wound Yes Skin Appearance) -Ulcer Cleansing Rinsed/ Irrigated with Saline -Foul Odor after Cleansing No -Anesthetic Used 4% Lidocaine Solution BENNIE - Nurse 2 - General Ulcer CM Notes Start: 09/27/19 23:33 Freq: Status: Active Protocol: Activity Type Activity Date Activity User E-Sign Co-Sign Detail Recorded Client Recorded Date Recorded By Document 10/07/19 15:03 MW [id number] 10/07/19 15:05 MW 10/07/19 15:03 Wound Center Nurse 2 [Procedure/Treatment] -Time 15:04 -Correct Patient Yes -Correct Side, Site, Position Yes -Correct Procedure Yes -Procedure Performed Yes -Type of Procedure Debridement -Clinical Debridement Subcutaneous -Tissue Removed Subcutaneous -Post Debridement (cm) - Length 0.7 -Post Debridement (cm) - Width 1.1 -Post Debridement (cm) - Depth 0.3 -Total Square (Post) (cm) 0.77 -Area of Debridement (cm) - Length 0.7 -Area of Debridement (cm) - Width 1.1 -Total Square (Area) (cm) 0.77 -Tunneling No -Undermining/Tunneling No -Circular Undermining No -Wound/Ulcer Outcome Not Healed -Ulcer Cleansing Rinsed/ Irrigated with Saline -Foul Odor after Cleansing No -Bioengineered Tissue No -Bleeding Controlled with Pressure -Offloading No -Debridement - Subq, 1st 20sq cm Yes [See Physician Procedure note for Specifics] Pain Scale: 0-10 Numeric [Pain] -Is Patient Pain Free? Yes - Nurse 3 - General Ulcer D/C NN Start: 09/27/19 23:33 Freq: Status: Active Protocol: Activity Type Activity Date Activity User E-Sign Co-Sign Detail Recorded Client Recorded Date Recorded By Document 10/07/19 15:10 [facility] [id number] 10/07/19 15:11 [facility] 10/07/19 15:10 Wound Care Nurse 3 [Wound Dressing] #1- R SCAPULA -Ulcer Cleansing Rinsed/ Irrigated with Saline -Foul Odor after Cleansing No -Primary Dressing Applied Promogran Rowena Matter -Primary Dressing Covered/Secured Dry Gauze, with Secured with Tape -Promogran Rowena Matter 1 [Post Procedure Tolerated] -Treatment Response Procedure Tolerated Well Pain Scale: 0-10 Numeric [Pain] -Is Patient Pain Free? Yes - Visit Discharge [Visit Discharge Information] -Discharge Condition Stable -Ambulatory Status Ambulatory -Transportation Private Auto -Accompanied by girlfriend Musculoskeletal: No Muscle Wasting Neurological: Neuro grossly intact Psych/Mental Status: Normal Affect, Appropriate, Alert and oriented to time, place, person, mood and affect Debridement Note Post-Debridement Measurements/Treatment - Nurse 2 - General Ulcer CM Notes Start: 09/27/19 23:33 Freq: Status: Active Protocol: Activity Type Activity Date Activity User E-Sign Co-Sign Detail Recorded Client Recorded Date Recorded By Document 09/30/19 15:36 MW [id number] 09/30/19 15:40 MW Document 10/07/19 15:03 MW [id number] 10/07/19 15:05 MW 09/30/19 10/07/19 15:36 15:03 Wound Center Nurse 2 #1- R SCAPULA -Time 15:37 15:04 -Correct Patient Yes Yes -Correct Side, Site, Position Yes Yes -Correct Procedure Yes Yes -Procedure Performed Yes Yes -Type of Procedure Incision & Debridement Drainage -Clinical Debridement Subcutaneous Subcutaneous -Tissue Removed Subcutaneous Subcutaneous -Post Debridement (cm) - Length 0.9 0.7 -Post Debridement (cm) - Width 1.5 1.1 -Post Debridement (cm) - Depth 0.6 0.3 -Total Square (Post) (cm) 1.35 0.77 -Area of Debridement (cm) - Length 0.9 0.7 -Area of Debridement (cm) - Width 1.5 1.1 -Total Square (Area) (cm) 1.35 0.77 -Tunneling No No -Undermining/Tunneling Yes No -Undermining/Tunneling Starts (O'clock 11 ) -Undermining/Tunneling Ends (O'clock) 1 -Maximum Distance (cm) 0.8 -Circular Undermining No No -Wound/Ulcer Outcome Not Healed Not Healed -Ulcer Cleansing Rinsed/ Rinsed/ Irrigated with Irrigated with Saline Saline -Foul Odor after Cleansing No No -Bioengineered Tissue No No -Bleeding Controlled with Pressure Pressure -Offloading No No -Treatment Response Procedure Tolerated Well -Debridement - Subq, 1st 20sq cm Yes Yes Pain Scale: 0-10 Numeric Is Patient Pain Free? Yes Yes - Nurse 3 - General Ulcer D/C NN Start: 09/27/19 23:33 Freq: Status: Active Protocol: Activity Type Activity Date Activity User E-Sign Co-Sign Detail Recorded Client Recorded Date Recorded By Document 09/28/19 15:08 DL [id number] 09/28/19 15:12 DL Document 09/30/19 15:49 DL [id number] 09/30/19 15:50 DL Document 10/05/19 13:02 DL [id number] 10/05/19 13:13 DL Document 10/07/19 15:10 [facility] [id number] 10/07/19 15:11 [facility] 09/28/19 09/30/19 10/05/19 15:08 15:49 13:02 Pain Scale: 0-10 Numeric Is Patient Pain Free? Yes Yes Yes Wound Care Nurse 3 #1- R SCAPULA -Ulcer Cleansing Wound Cleanser Rinsed/ Rinsed/ Irrigated with Irrigated with Saline Saline -Foul Odor after Cleansing No No -Negative Pressure Wound Therapy Continue -Setting (mmHg) 125 -Negative Pressure is Continuous -Primary Dressing Applied Promogran Rowena Matter -Primary Dressing Applied Promogran Rowena Matter -Primary Dressing Covered/Secured with Dry Gauze, Dry Gauze, Secured with Secured with Tape Tape -NPWT Application Charge ($) NPWT </= 50 sq cm (disp) -Promogran Rowena Matter 1 1 Treatment Response Procedure Procedure Procedure Tolerated Well Tolerated Well Tolerated Well WC - Visit Discharge Discharge Condition Stable Stable Stable Ambulatory Status Ambulatory Ambulatory Ambulatory Transportation Private Auto Private Auto Private Auto Accompanied by Notes: Dressing changed. Pt concerned that Rowena was stuck in Wound . None found, new rowena applied as order. Will return on to see 10/07/19 15:10 Pain Scale: 0-10 Numeric Is Patient Pain Free? Yes Wound Care Nurse 3 #1- R SCAPULA -Ulcer Cleansing Rinsed/ Irrigated with Saline -Foul Odor after Cleansing No -Negative Pressure Wound Therapy -Setting (mmHg) -Negative Pressure is -Primary Dressing Applied -Primary Dressing Applied Promogran Rowena Matter -Primary Dressing Covered/Secured with Dry Gauze, Secured with Tape -NPWT Application Charge ($) -Promogran Rowena Matter 1 Treatment Response Procedure Tolerated Well WC - Visit Discharge Discharge Condition Stable Ambulatory Status Ambulatory Transportation Private Auto Accompanied by girlfriend Notes: Wound debrided: Right upper back postsurgical wound Type of Debridement: Excisional debridement Anesthesia Used: 5% Lidocaine Gel Depth: Down to and including healthy tissue, in the subcutaneous layer Percentage of wound debrided: 100 Instrument Used: 5mm curette Tissue Removed: Slough and devitalized tissue Severity: Fat Layer Exposed Amount of bleeding with debridement: Mild Bleeding Controlled with: Pressure Patient tolerated procedure well Assessment/Plan Assessment: See above diagnoses Plan: The patient was seen and examined at the wound center today and was updated on the plan of care. A subcutaneous debridement was performed today. The patient tolerated the procedure well. The patients wound care will consist of: Application of Rowena, change daily, snap on hold due to surrounding skin irritation/excoriation. He may utilize [id number]-[id number] hydrocortisone cream to surrounding area. Given the delayed wound healing and failure of wound to heal with standard wound care in the last 6 weeks will apply for an advanced skin substitute. Wound cultures were collected prior negative. Baseline bloodwork held. Patient educated on the importance of diet on wound healing and instructed to increase protein and vitamin C intake. Patient verbalized understanding. Patient will follow up at wound healing center in one week or sooner if needed. This note was generated with [employer] software. It may contain incorrect words, spelling, and punctuation that were not noted in checking the note before signing. [id number]: [id number] Denice subq tissue 20 sq cm/<
== END 2019-10-11 23:59 ==
LOC: WC 14:30
PROVIDERS: PCP Family Medicine Geriatric Medicine; Referring Provider Nurse Practitioner; Visit Provider Nurse Practitioner
DX: T81.89XA Other complications of procedures, not elsewhere classified, initial encounter (principal); Y83.8 Other surgical procedures as the cause of abnormal reaction of the patient, or of later complication, without mention of misadventure at the time of the procedure; L72.3 Sebaceous cyst; E78.5 Hyperlipidemia, unspecified; Z72.0 Tobacco use
CPT/HCPCS: 11042; 97607; 97608; 99211; G0463

== ENCOUNTER 2019-10-21 14:45 | Outpatient (RCR) | payer MEDICARE, MEDICAID, SELFPAY ==
[2019-10-12 00:43] VITALS: BP 129/79; PULSE 103; RESP 20; TEMP 37.1
[2019-10-14 14:31] VITALS: BP 130/78; PULSE 92; RESP 16; TEMP 36.3
--- NOTE | 2019-10-14 20:21 | PN.PCM_ITS ---
(1) Nonhealing surgical wound Status: Acute Code(s): T81.89XA - Other complications of procedures, not elsewhere classified, initial encounter (2) Anxiety Status: Acute Code(s): F41.9 - Anxiety disorder, unspecified (3) Depression Status: Acute Code(s): F32.9 - Major depressive disorder, single episode, unspecified (4) Hyperlipidemia Status: Acute Code(s): E78.5 - Hyperlipidemia, unspecified (5) Sebaceous cyst Status: Acute Code(s): L72.3 - Sebaceous cyst (6) Tobacco abuse Status: Acute Code(s): Z72.0 - Tobacco use Type of Wound Date of Service: 10/14/19 Chief Complaint: Nonhealing surgical wound status post I&D 6 weeks ago right upper back History of Wound: This is a 63-year-old white male who presents to the wound healing center today with a complaint of nonhealing wound to his right upper back status post incision and drainage of a sebaceous cyst by his primary care 6 weeks ago. He has a past medical history as listed above. For wound care he has been utilizing iodoform gauze and packing wet-to-dry dressings. He states that he has been on multiple antibiotics over the past 6 weeks and that site continues to have delayed wound healing. He denies any current symptoms of infection either localized or systemic. He denies any other acute concerns at this time. All other systems reviewed and negative with exception of those listed above. For wound care, his only member has been assisting with dressing changes at home. Progress of Wound: 09/16/2019?no new concerns, snap VAC was approved and will be applied today. 09/23/19-no new concerns, tolerating VAC well. 09/30/19-patient complains of surrounding tissue around the back being irritated and itchy, otherwise no new concerns. 10/07/2019?no new complaints, patient doing well with current treatment plan. 10/14/2019?no new complaints, patient's postsurgical site is healing, do to the adipose tissue that was initially removed from the sebaceous cyst removal there is a divot in the wound itself, however it is healing well without any signs of infection. - Physical Exam Vital Signs Temp Pulse Resp BP 97.3 F L 92 16 130/78 H 10/14/19 14:31 10/14/19 14:31 10/14/19 14:31 10/14/19 14:31 General: Alert, Oriented x3, Cooperative, No apparent distress HEENT: Atraumatic Oral: Moist Mucosa Lungs: Clear to auscultation Cardiovascular: Regular rate Abdomen: Soft, Non Tender Extremities: No clubbing, No cyanosis, No edema Skin: Ulcer/ Wound - See nursing documentation, slough and devitalized tissue present Musculoskeletal: No Tenderness to Palpation of Joints or Extremities Neurological: Neuro grossly intact Psych/Mental Status: Normal Affect, Appropriate, Alert and oriented to time, place, person, mood and affect Debridement Note Post-Debridement Measurements/Treatment WC - Nurse 2 - General Ulcer CM Notes Start: 10/14/19 14:31 Freq: Status: Active Protocol: Activity Type Activity Date Activity User E-Sign Co-Sign Detail Recorded Client Recorded Date Recorded By Document 10/14/19 14:56 MW [id number] 10/14/19 14:58 MW 10/14/19 14:56 Wound Center Nurse 2 #1- R SCAPULA -Time 14:57 -Correct Patient Yes -Correct Side, Site, Position Yes -Correct Procedure Yes -Procedure Performed Yes -Type of Procedure Debridement -Clinical Debridement Subcutaneous -Tissue Removed Subcutaneous -Post Debridement (cm) - Length 0.3 -Post Debridement (cm) - Width 0.3 -Post Debridement (cm) - Depth 0.1 -Total Square (Post) (cm) 0.09 -Area of Debridement (cm) - Length 0.3 -Area of Debridement (cm) - Width 0.3 -Total Square (Area) (cm) 0.09 -Tunneling No -Undermining/Tunneling No -Circular Undermining No -Wound/Ulcer Outcome Not Healed -Ulcer Cleansing Rinsed/ Irrigated with Saline -Foul Odor after Cleansing No -Bioengineered Tissue No -Bleeding Controlled with Pressure -Offloading No -Treatment Response Procedure Tolerated Well -Debridement - Subq, 1st 20sq cm Yes Pain Scale: 0-10 Numeric Is Patient Pain Free? Yes WC - Nurse 3 - General Ulcer D/C NN Start: 10/14/19 14:31 Freq: Status: Active Protocol: Activity Type Activity Date Activity User E-Sign Co-Sign Detail Recorded Client Recorded Date Recorded By Document 10/14/19 15:03 DL [id number] 10/14/19 15:04 DL 10/14/19 15:03 Wound Care Nurse 3 #1- R SCAPULA -Ulcer Cleansing Rinsed/ Irrigated with Saline -Foul Odor after Cleansing No -Primary Dressing Applied Promogran Yari Matter -Primary Dressing Covered/Secured with Dry Gauze, Secured with Tape -Promogran Yari Matter 1 Treatment Response Procedure Tolerated Well Pain Scale: 0-10 Numeric Is Patient Pain Free? Yes WC - Visit Discharge Discharge Condition Stable Transportation Private Auto Wound debrided: Right upper back postsurgical wound Laterality: Right Type of Debridement: Excisional debridement Anesthesia Used: 5% Lidocaine Gel Depth: in the subcutaneous layer Percentage of wound debrided: 100 Instrument Used: 3mm curette Tissue Removed: Slough and devitalized tissue Severity: Fat Layer Exposed Amount of bleeding with debridement: Mild Bleeding Controlled with: Pressure Patient tolerated procedure well Assessment/Plan Assessment: See above diagnoses Plan: The patient was seen and examined at the wound center today and was updated on the plan of care. A subcutaneous debridement was performed today. The patient tolerated the procedure well. The patients wound care will consist of: Application of Yari, change daily, snap on hold due to surrounding skin irritation/excoriation. He may utilize [id number]-[id number] hydrocortisone cream to surrounding area. Given the delayed wound healing and failure of wound to heal with standard wound care in the last 6 weeks will apply for an advanced skin substitute. Wound cultures were collected prior negative. Baseline bloodwork held. Patient educated on the importance of diet on wound healing and instructed to increase protein and vitamin C intake. Patient verbalized understanding. Patient will follow up at wound healing center in one week or sooner if needed. This note was generated with [employer] dictation software. It may contain incorrect words, spelling, and punctuation that were not noted in checking the note before signing. [id number]: [id number] Denice subq tissue 20 sq cm/<
[2019-10-21 15:09] VITALS: BP 125/79; PULSE 87; RESP 18; TEMP 36.2
--- NOTE | 2019-10-22 13:19 | PN.PCM_ITS ---
(1) Nonhealing surgical wound Status: Acute Code(s): T81.89XA - Other complications of procedures, not elsewhere classified, initial encounter (2) Anxiety Status: Acute Code(s): F41.9 - Anxiety disorder, unspecified (3) Depression Status: Acute Code(s): F32.9 - Major depressive disorder, single episode, unspecified (4) Hyperlipidemia Status: Acute Code(s): E78.5 - Hyperlipidemia, unspecified (5) Sebaceous cyst Status: Acute Code(s): L72.3 - Sebaceous cyst (6) Tobacco abuse Status: Acute Code(s): Z72.0 - Tobacco use Type of Wound Date of Service: 10/21/19 Chief Complaint: Nonhealing surgical wound status post I&D 6 weeks ago right upper back History of Wound: This is a 63-year-old white male who presents to the wound healing center today with a complaint of nonhealing wound to his right upper back status post incision and drainage of a sebaceous cyst by his primary care 6 weeks ago. He has a past medical history as listed above. For wound care he has been utilizing iodoform gauze and packing wet-to-dry dressings. He states that he has been on multiple antibiotics over the past 6 weeks and that site continues to have delayed wound healing. He denies any current symptoms of infection either localized or systemic. He denies any other acute concerns at this time. All other systems reviewed and negative with exception of those listed above. For wound care, his only member has been assisting with dressing changes at home. Progress of Wound: 09/16/2019?no new concerns, snap VAC was approved and will be applied today. 09/23/19-no new concerns, tolerating VAC well. 09/30/19-patient complains of surrounding tissue around the back being irritated and itchy, otherwise no new concerns. 10/21/2019?no new concerns, site is healed without any signs of infection at this time. The patient otherwise denies any fever, chills, nausea, vomiting, shortness of breath, chest pain or pressure, palpitations, orthopnea, lower extremity edema, syncope or presyncopal episodes. 10/07/2019?no new complaints, patient doing well with current treatment plan. 10/14/2019?no new complaints, patient's postsurgical site is healing, do to the adipose tissue that was initially removed from the sebaceous cyst removal there is a divot in the wound itself, however it is healing well without any signs of infection. - Physical Exam Vital Signs Temp Pulse Resp BP 97.2 F L 87 18 125/79 H 10/21/19 15:09 10/21/19 15:10/21/19 15:10/21/19 15:09 General: Alert, Oriented x3, Cooperative, No apparent distress HEENT: Atraumatic Oral: Moist Mucosa Lungs: Clear to auscultation, Normal air movement Cardiovascular: Regular rate, Regular Rhythm Abdomen: Soft, Non Tender Extremities: No clubbing, No cyanosis, No edema Skin: Ulcer/ Wound - See nursing documentation, site is healed, there is a indentation in the skin from where the sebaceous cyst was surgically removed, however all of it is epithelialized without any signs of infection. Wound Measurements and Assessment WC - Nurse 1 - General Ulcer Measurement Start: 10/14/19 14:31 Freq: Status: Discharge Protocol: Activity Type Activity Date Activity User E-Sign Co-Sign Detail Recorded Client Recorded Date Recorded By Document 10/21/19 15:09 RB [id number] 10/21/19 15:10 RB Edit Status 10/21/19 15:29 PHILIPPE DASTEPHANIE Active=>Discharge [id number] 10/21/19 15:29 PHILIPPE DAMARYANON 10/21/19 15:09 Wound Center Nurse 1 [Ulcer Assessment] #1- R SCAPULA -Combined with other wound No -Current Size (cm) - Length 0.7 -Current Size (cm) - Width 1.1 -Current Size (cm) - Depth 0.2 -Total Square Cm 0.77 -Tunneling No -Undermining/Tunneling No -Circular Undermining No -Exudate Amt Small -Exudate Type Serosanguineous -Wound Margin Thickened & Rolled Under -Granulation Amt Medium (34-66%) -Granulation Quality Pale -Slough/Fibrin Yes -Necrosis Amt Small (1-33%) -Necrotic Tissue Type Adherent Slough -Structure Exposed N/A -Texture (Carrie-wound Skin Appearance) Assessed -Moisture (Carrie-wound Skin Appearance Assessed ) -Color (Carrie-wound Skin Appearance) Assessed -Temperature (Carrie-wound Skin No Abnormality Appearance) (Pt Warm) -Tenderness on Palpation (Carrie-wound No Skin Appearance) -Ulcer Cleansing Wound Cleanser -Foul Odor after Cleansing No -Anesthetic Used 5% Lidocaine Gel - Nurse 2 - General Ulcer CM Notes Start: 10/14/19 14:31 Freq: Status: Discharge Protocol: Activity Type Activity Date Activity User E-Sign Co-Sign Detail Recorded Client Recorded Date Recorded By Document 10/21/19 15:23 MW [id number] 10/21/19 15:25 MW Edit Status 10/21/19 15:29 PHILIPPE DAMARYANON Active=>Discharge [facility]-BG11 10/21/19 15:29 BKMatthew DAEMON 10/21/19 15:23 Wound Center Nurse 2 [Procedure/Treatment] -Time 15:24 -Correct Patient Yes -Correct Side, Site, Position Yes -Correct Procedure Yes -Procedure Performed No -Post Debridement (cm) - Length 0 -Post Debridement (cm) - Width 0 -Post Debridement (cm) - Depth 0 -Total Square (Post) (cm) 0 -Wound/Ulcer Outcome Healed- Epithelialized [See Physician Procedure note for Specifics] - Nurse 3 - General Ulcer D/C NN Start: 10/14/19 14:31 Freq: Status: Discharge Protocol: Activity Type Activity Date Activity User E-Sign Co-Sign Detail Recorded Client Recorded Date Recorded By Edit Status 10/21/19 15:29 DELMYMatthew KINGMARYANAARON Active=>Discharge [facility]-BG11 10/21/19 15:29 BKMatthew DAMARYANON Document 10/21/19 15:30 RB [id number] 10/21/19 15:31 RB 10/21/19 15:30 Wound Care Nurse 3 [Post Procedure Tolerated] -Treatment Response Procedure Tolerated Well Pain Scale: 0-10 Numeric [Pain] -Is Patient Pain Free? Yes Teaching: Wound Center [Wound Center Education] (Items with an * have Printed Materials Available- Please identify what is given to patient under the Teaching materials given to patient and caregiver Section. Discharge Instructions -Person Taught Patient -Teaching Method Discussion -Response to teaching Verbalize understanding WC - Visit Discharge [Visit Discharge Information] -Discharge Condition Stable -Ambulatory Status Ambulatory -Transportation Private Auto -Medication Reconcilliation completed No & provided to patient/care provider -Clinical Summary of Care Provided Yes -Notes: healed photo taken Neurological: Neuro grossly intact Psych/Mental Status: Normal Affect, Appropriate, Alert and oriented to time, place, person, mood and affect Debridement Note Post-Debridement Measurements/Treatment WC - Nurse 2 - General Ulcer CM Notes Start: 10/14/19 14:31 Freq: Status: Discharge Protocol: Activity Type Activity Date Activity User E-Sign Co-Sign Detail Recorded Client Recorded Date Recorded By Document 10/14/19 14:56 MW [id number] 10/14/19 14:58 MW Document 10/21/19 15:23 MW [id number] 10/21/19 15:25 MW 10/14/19 10/21/19 14:56 15:23 Wound Center Nurse 2 #1- R SCAPULA -Time 14:57 15:24 -Correct Patient Yes Yes -Correct Side, Site, Position Yes Yes -Correct Procedure Yes Yes -Procedure Performed Yes No -Type of Procedure Debridement -Clinical Debridement Subcutaneous -Tissue Removed Subcutaneous -Post Debridement (cm) - Length 0.3 0 -Post Debridement (cm) - Width 0.3 0 -Post Debridement (cm) - Depth 0.1 0 -Total Square (Post) (cm) 0.09 0 -Area of Debridement (cm) - Length 0.3 -Area of Debridement (cm) - Width 0.3 -Total Square (Area) (cm) 0.09 -Tunneling No -Undermining/Tunneling No -Circular Undermining No -Wound/Ulcer Outcome Not Healed Healed- Epithelialized -Ulcer Cleansing Rinsed/ Irrigated with Saline -Foul Odor after Cleansing No -Bioengineered Tissue No -Bleeding Controlled with Pressure -Offloading No -Treatment Response Procedure Tolerated Well -Debridement - Subq, 1st 20sq cm Yes Pain Scale: 0-10 Numeric Is Patient Pain Free? Yes - Nurse 3 - General Ulcer D/C NN Start: 10/14/19 14:31 Freq: Status: Discharge Protocol: Activity Type Activity Date Activity User E-Sign Co-Sign Detail Recorded Client Recorded Date Recorded By Document 10/14/19 15:03 DL [id number] 10/14/19 15:04 DL Document 10/21/19 15:30 RB [id number] 10/21/19 15:31 RB 10/14/19 10/21/19 15:03 15:30 Wound Care Nurse 3 -Ulcer Cleansing Rinsed/ Irrigated with Saline -Foul Odor after Cleansing No -Primary Dressing Applied Promogran Yari Matter -Primary Dressing Covered/Secured with Dry Gauze, Secured with Tape -Promogran Yari Matter 1 Treatment Response Procedure Procedure Tolerated Well Tolerated Well Pain Scale: 0-10 Numeric Is Patient Pain Free? Yes Yes Teaching: Wound Center Discharge Instructions -Person Taught Patient -Teaching Method Discussion -Response to teaching Verbalize understanding WC - Visit Discharge Discharge Condition Stable Stable Ambulatory Status Ambulatory Transportation Private Auto Private Auto Medication Reconcilliation completed & No provided to patient/care provider Clinical Summary of Care Provided Yes Notes: healed photo taken No debridement was completed today Assessment/Plan Assessment: See above diagnoses Plan: The patient was seen and examined at the wound center today and was updated on the plan of care. Site is healed without any signs of infection at th is time. May cover with adaptic and gauze for the next week for wound protection.Patient educated on the importance of diet on wound healing and instructed to increase protein and vitamin C intake. Patient verbalized understanding. Patient will follow up at wound healing center in one week or sooner if needed. This note was generated with [employer] dictation software. It may contain incorrect words, spelling, and punctuation that were not noted in checking the note before signing. Office Visits / Consults: [id number] OV L3 Est
== END 2019-10-21 15:28 | disposition home or self-care (01) ==
LOC: WC 14:45
PROVIDERS: PCP Family Medicine Geriatric Medicine; Referring Provider Nurse Practitioner; Visit Provider Nurse Practitioner
CPT/HCPCS: 11042

== ENCOUNTER → 2020-01-31 13:54 | Outpatient (CLI) | payer MEDICARE, MEDICAID, SELFPAY ==
[2020-01-31 17:20] LABS: Absolute Lymphocyte Count 0.79 X10^3/uL (0.83-4.51); Absolute Neutrophil Count 3.2 X10^3/uL (2.0-7.7); Basophil# 0.01 X10^3/uL; Basophil% 0.2 % (0-1); Eosinophil# 0.08 X10^3/uL; Eosinophils% 1.8 % (0-5); Hematocrit 47.2 % (40-54); Hemoglobin 15.4 g/dL (13.0-16.5); Lymphocyte # 0.79 X10^3/ul (4.0); Lymphocyte % 17.3 % (19-41); Mean Corp Hgb Conc 32.6 g/dL (32-36); Mean Corpuscular Hgb 29.2 pg (27.0-32.0); Mean Corpuscular Volume 89.6 fL (80-94); Mean Platelet Vol. 11.1 fl (6.2-12.0); Monocyte# 0.51 X10^3/uL; Monocyte% 11.2 % (0-10); NRBC Flagged by Analyzer 0 % (0-5); Neutrophil # 3.16 X10^3/uL (2.7-7.7); Neutrophil % 69.1 % (47-70); Platelet Count 162 K/mm3 (150-450); RBC Distribution Width CV 12.7 % (11.6-14.6); RBC Distribution Width SD 41.7 fl (35.1-43.9); Red Blood Count 5.27 M/mm3 (4.6-6.2); White Blood Count 4.6 K/mm3 (4.4-11.0)
[2020-01-31 17:37] LABS: Vitamin D,25 Hydroxy 17.9 ng/mL
[2020-01-31 17:50] LABS: ALB/GLOB Ratio 1.4 RATIO (0.9-2.4); AST(SGOT) 10 U/L (15-37); Alanine Aminotransfer ALT/SGPT 26 U/L (16-61); Alkaline Phosphatase 182 U/L (45-117); Anion Gap 8 (5-15); BUN 18 mg/dL (7-18); Calcium,Total 8.5 mg/dL (8.5-10.1); Chloride 107 mmol/L (98-107); EST Glomerular Filtration Rate 90 mL/min (>60); Est Glom Filt Rate - Afr Amer 109 mL/min (>60); Globulin 2.8 g/dL (2.2-4.2); Glucose 118 mg/dL (74-106); PSA,Total - Annual Screen 1.52 ng/mL (0.00-4.00); Potassium 4.1 mmol/L (3.5-5.1); Protein, Total 6.8 g/dL (6.4-8.2); Sodium Level 141 mmol/L (136-145); Thyroid Stim Hormone (TSH) 1.92 uIU/mL (0.358-3.74)
== END ==
PROVIDERS: PCP Family Medicine Geriatric Medicine; Visit Provider Family Medicine Geriatric Medicine
DX: E55.9 Vitamin D deficiency, unspecified (principal); R53.83 Other fatigue; Z12.5 Encounter for screening for malignant neoplasm of prostate
CPT/HCPCS: 36415; 80053; 82306; 84153; 84443; 85025; G0103

== ENCOUNTER → 2020-12-14 15:46 | Outpatient (CLI) | payer MEDICARE, MEDICAID, SELFPAY ==
[2020-12-14 17:37] LABS: Absolute Neutrophil Count 2.8 X10^3/uL (2.0-7.7); Basophil# 0.02 X10^3/uL; Basophil% 0.5 % (0-1); Eosinophil# 0.08 X10^3/uL; Eosinophils% 1.9 % (0-5); Hematocrit 46.5 % (40-54); Hemoglobin 15.5 g/dL (13.0-16.5); Lymphocyte % 18.9 % (19-41); Mean Corp Hgb Conc 33.3 g/dL (32-36); Mean Corpuscular Hgb 29.9 pg (27.0-32.0); Mean Corpuscular Volume 89.6 fL (80-94); Monocyte# 0.54 X10^3/uL; Monocyte% 12.8 % (0-10); NRBC Flagged by Analyzer 0 % (0-5); Neutrophil # 2.78 X10^3/uL (2.7-7.7); Neutrophil % 65.7 % (47-70); Platelet Count 161 K/mm3 (150-450); RBC Distribution Width CV 12.7 % (11.6-14.6); RBC Distribution Width SD 41.5 fl (35.1-43.9); Red Blood Count 5.19 M/mm3 (4.6-6.2); White Blood Count 4.2 K/mm3 (4.4-11.0)
[2020-12-14 17:59] LABS: Vitamin D,25 Hydroxy 13.1 ng/mL
[2020-12-14 18:09] LABS: ALB/GLOB Ratio 1.2 RATIO (0.9-2.4); AST(SGOT) 14 U/L (15-37); Alanine Aminotransfer ALT/SGPT 30 U/L (16-61); Alkaline Phosphatase 148 U/L (45-117); Anion Gap 4 (5-15); BUN 18 mg/dL (7-18); BUN/Creat Ratio 17.3 RATIO (10-20); Chloride 105 mmol/L (98-107); Creatinine, Serum 1.04 mg/dL (0.70-1.30); EST Glomerular Filtration Rate 76 mL/min (>60); Est Glom Filt Rate - Afr Amer 92 mL/min (>60); Globulin 3.2 g/dL (2.2-4.2); Glucose 121 mg/dL (74-106); Potassium 4.6 mmol/L (3.5-5.1); Protein, Total 7.2 g/dL (6.4-8.2); Sodium Level 139 mmol/L (136-145); Thyroid Stim Hormone (TSH) 1.95 uIU/mL (0.358-3.74)
== END ==
PROVIDERS: PCP Family Medicine Geriatric Medicine; Visit Provider Family Medicine Geriatric Medicine
DX: E55.9 Vitamin D deficiency, unspecified (principal); R53.83 Other fatigue
CPT/HCPCS: 36415; 80053; 82306; 84443; 85025

== ENCOUNTER 2021-02-15 13:07 | Outpatient (CLI) | payer MEDICARE, MEDICAID, SELFPAY ==
[2021-02-15 17:08] LABS: Absolute Lymphocyte Count 0.82 X10^3/uL (0.83-4.51); Absolute Neutrophil Count 3.6 X10^3/uL (2.0-7.7); Basophil# 0.03 X10^3/uL; Basophil% 0.6 % (0-1); Eosinophil# 0.13 X10^3/uL; Eosinophils% 2.5 % (0-5); Hematocrit 44.6 % (40-54); Hemoglobin 15.5 g/dL (13.0-16.5); Lymphocyte # 0.82 X10^3/ul (0.83-4.51); Mean Corp Hgb Conc 34.8 g/dL (32-36); Mean Corpuscular Hgb 30.2 pg (27.0-32.0); Mean Corpuscular Volume 86.9 fL (80-94); Monocyte# 0.55 X10^3/uL; Monocyte% 10.7 % (0-10); NRBC Flagged by Analyzer 0 % (0-5); Neutrophil # 3.57 X10^3/uL (2.7-7.7); Neutrophil % 69.6 % (47-70); Platelet Count 157 K/mm3 (150-450); RBC Distribution Width CV 12.5 % (11.6-14.6); RBC Distribution Width SD 39.8 fl (35.1-43.9); Red Blood Count 5.13 M/mm3 (4.6-6.2); White Blood Count 5.1 K/mm3 (4.4-11.0)
[2021-02-15 17:44] LABS: ALB/GLOB Ratio 1.2 RATIO (0.9-2.4); AST(SGOT) 16 U/L (15-37); Alanine Aminotransfer ALT/SGPT 34 U/L (16-61); Albumin, Serum 3.8 g/dL (3.2-5.0); Alkaline Phosphatase 145 U/L (45-117); Anion Gap 7 (5-15); BUN 21 mg/dL (7-18); BUN/Creat Ratio 22.4 RATIO (10-20); Calcium,Total 8.7 mg/dL (8.5-10.1); Chloride 108 mmol/L (98-107); Creatinine, Serum 0.94 mg/dL (0.70-1.30); EST Glomerular Filtration Rate 85 mL/min (>60); Est Glom Filt Rate - Afr Amer 103 mL/min (>60); Globulin 3.2 g/dL (2.2-4.2); Glucose 126 mg/dL (74-106); PSA,Total - Annual Screen 1.32 ng/mL (0.00-4.00); Potassium 3.6 mmol/L (3.5-5.1); Sodium Level 142 mmol/L (136-145); Thyroid Stim Hormone (TSH) 2.15 uIU/mL (0.358-3.74)
== END 2021-02-15 23:59 | disposition short-term general hospital (02) ==
LOC: POLAB3 13:09
PROVIDERS: PCP Family Medicine Geriatric Medicine; Visit Provider Family Medicine Geriatric Medicine
DX: E03.9 Hypothyroidism, unspecified (principal); R53.83 Other fatigue; E55.9 Vitamin D deficiency, unspecified; Z12.5 Encounter for screening for malignant neoplasm of prostate
CPT/HCPCS: 36415; 80053; 82306; 84153; 84443; 85025; G0103

== ENCOUNTER 2021-02-22 16:26 | Outpatient (CLI) | payer MEDICARE, MEDICAID, SELFPAY ==
--- NOTE | 2021-02-22 16:40 | RAD_ITS ---
STUDY: X-RAY - LUMBAR SPINE REASON FOR EXAM: Male, 65 years old. Chronic back pain for 47 years. Thoracic back TECHNIQUE: 2 view(s) of the lumbar spine were obtained. COMPARISON: None FINDINGS: Normal lumbar lordosis. There is no substantial scoliosis. There is a normal alignment of the vertebrae. There is multilevel endplate spondylosis of the lumbar vertebrae. There is multi-level degenerative disc disease with multi-level disc space narrowing. There is no evidence of acute fracture or loss of vertebral axial height. The soft tissue structures are unremarkable. RAD/Lumbar Spine 2 or 3 Views IMPRESSION: Degenerative changes of the spine, as detailed above. Electronically Signed: Maciej Johnson DO at 22:55 EST Tel [phone], Service support ,
--- NOTE | 2021-02-22 16:54 | RAD_ITS ---
STUDY: X-RAY - THORACIC SPINE REASON FOR EXAM: Male, 65 years old. Chronic back pain for 47 years. Thoracic back pain. TECHNIQUE: 3 view(s) of the thoracic spine were obtained. COMPARISON: Lumbar spine, 02/22/2021. FINDINGS: Normal kyphosis of the thoracic spine. There is no substantial scoliosis. There is demineralization of the thoracic spine with endplate spondylosis. There is multilevel disc space narrowing of the thoracic spine. There is no evidence of acute fracture or loss of vertebral axial height. The soft tissue structures are unremarkable. RAD/Thoracic Spine 3 Views IMPRESSION: Osteopenia and degenerative changes of the thoracic spine Electronically Signed: Maciej Johnson DO at 22:56 EST Tel [phone], Service support ,
== END 2021-02-22 23:59 | disposition short-term general hospital (02) ==
LOC: RAD 16:33
PROVIDERS: PCP Family Medicine Geriatric Medicine; Referring Provider Family Medicine Geriatric Medicine; Visit Provider Family Medicine Geriatric Medicine
DX: M54.6 Pain in thoracic spine (principal); M54.50 Low back pain, unspecified
CPT/HCPCS: 72072; 72100

== ENCOUNTER 2021-08-16 13:30 | Outpatient (RCR) | payer MEDICARE, MEDICAID, SELFPAY ==
--- NOTE | 2021-05-28 18:53 | HP.PTEVAL_ITS ---
Patient's Visit Information VICENTE GARCIA is a 65 year old M referred to Physical Therapy by Dr. Sam Brower MD with a diagnosis of LOW BACK PAIN, THORACIC PAIN, THORACIC RADICULOPATHY AND BACK SPASMS.. Date of Evaluation: 05/28/21 Physical Therapist: Debbi Dorsey PT, Cert MDT - Visit Plan Frequency: 2-3x /Week Duration: 4-6 Weeks Plan: POSTURE CORRECTION/STRENGTHENING, INSTRUCTION IN APPROPRIATE BODY MECHANICS AND ACTIVITY MODIFICATIONS. DLS STARTING WITH A NEUTRAL SPINE PROGRESSING ROM TOLERATED. KAITLIN LE ROM, STRETCHING AND STRENGTHENING. HEP INSTRUCTION. - Subjective Work/Leisure: RETIRED. Present symptoms: MID AND LOW BACK. DENIES KAITLIN UE AND LE SX'S. Present since: CHRONIC. Pain Scale: WORST 7/10, LEAST 1/10. Currently: 03/22. Commenced as a result of: NO APPARENT REASON. Symptoms at onset: MID BACK PAIN. Worse: LIFTING, RIDING IN THE CAR, WALKING, STANDING. Better: SITTING AND LEANING FORWARD, LYING DOWN SUPINE WITH 2 PILLOWS UNDER HEAD. Disturbed sleep: YES - R SDLY INCREASES PAIN. Previous history/Previous treatment: PHYSICAL THERAPY, SHOTS FROM DR. BROWER, MUSCLE RELAXERS, PREDNISONE - NOTHING HAS REALLY HELPED MUCH PER PATIENT REPORT. Coughing/sneezing/straining: POSITIVE. Gait: TIME AND DISTANCE LIMITED BY BACK PAIN. NO AD'S. Difficulty initiating urination: DENIES BOWEL AND BLADDER INCONTINENCE. Accidents: NO. Unexplained weight loss: LOSING WEIGHT BUT DR. BROWER IS AWARE. Imaging: STUDY: X-RAY - LUMBAR SPINE. REASON FOR EXAM: Male, 65 years old. Chronic back pain for 47 years. Thoracic back. TECHNIQUE: 2 view(s) of the lumbar spine were obtained. COMPARISON: None. . FINDINGS: Normal lumbar lordosis. There is no substantial scoliosis. There is a. normal alignment of the vertebrae. There is multilevel endplate spondylosis of the lumbar vertebrae. There is. multi-level degenerative disc disease with multi-level disc space. narrowing. There is no evidence of acute fracture or loss of vertebral. axial height. The soft tissue structures are unremarkable. . RAD/Lumbar Spine 2 or 3 Views. IMPRESSION: Degenerative changes of the spine, as detailed above. . Electronically Signed: Maciej Johnson . at 22:55 EST. Tel [phone], Service support , . . STUDY: X- RAY - THORACIC SPINE. REASON FOR EXAM: Male, 65 years old. Chronic back pain for 47 years. Thoracic back pain. TECHNIQUE: 3 view(s) of the thoracic spine were obtained. COMPARISON: Lumbar spine, 02/22/2021. . FINDINGS: Normal kyphosis of the thoracic spine. There is no substantial scoliosis. There is demineralization of the thoracic spine with endplate spondylosis. There is multilevel disc space narrowing of the thoracic spine. There is. no evidence of acute fracture or loss of vertebral axial height. The soft tissue structures are unremarkable. . RAD/Thoracic Spine 3 Views. IMPRESSION: Osteopenia and degenerative changes of the thoracic spine. . Electronically Signed: Maciej Johnson . at 22:56 EST. Tel [phone], Service support , . PMH/Recent major surgery: COPD. DEPRESSION. - Objective Sitting/Standing Posture: POOR. REDUCED LORDOSIS. INCREASED KYPHOSIS. NO RELEVANT LATERAL SHIFT. Lordosis: REDUCED. Active Correction of posture: WORSE. POOR STANDING TOLERANCE - 1 MINUTE BEFORE WANTING TO SIT DOWN DUE TO INCREASED BACK PAIN. Other Observations: INDEP GAIT INTO PT WITHOUT ANY ASSISTIVE DEVICES, SLOW CADANCE, INCREASED TRUNK FLEXION AND NO LOB. 30 SEC SIT TO STAND TEST - 2 REPS WITH UE ASSIST THEN STOPPED DUE TO BACK PAIN. TUG TEST: 18.76. Sensory deficit: KAITLIN LE LIGHT TOUCH SENSATION IS GROSSLY INTACT AND SYMMETRICAL. ROM deficit: TIGHT KAITLIN LE HIP FLEXORS, HS'S AND GASTROC SOLEUS COMPLEX'S. Motor deficit: KAITLIN LE'S GROSSLY 5/5 WITH MMT'ING EXCEPT HIPS 4-/5. Dural Signs: NEGATIVE KAITLIN LE'S. Lumbar mvmt loss: flex - MOD. ext - IVELISSE. R SG - MOD. L SG - MOD. PATIENT C/O INCREASED PAIN WITH LUMBAR ROM TESTING ALL PLANES EXCEPT FLEXION WHICH PATIENT REPORTS DECREASES HIS PAIN. Core strength: POOR. Palpation: NO ACUTE MID OR LOW BACK TENDERNESS WITH PALPATION. TREATMENT: NEUROMUSCULAR REEDUCATION - RETRAINING OF MVMT AND POSTURE FOR SITTING, LYING AND STANDING ACTIVITIES. - Balance/Special Test Scores Oswestry Low Back Score: 30 - Goals Goal 1:: DECREASE C/O MID AND LOW BACK PAIN Goal Time Frame: 4-6 Weeks Goal 2:: IMPROVE PERSONAL CARE, LIFTING, WALKING, SITTING, STANDING, SOCIAL LIFE, TRAVEL AND HOMEMAKING FUNCTION Goal Time Frame: 4-6 Weeks Goal 3:: INSTRUCT IN PROPHYLAXIS Goal Time Frame: 4-6 Weeks Goal 4:: PATIENT WILL COMPLETE 6 STANDS IN 30 SECS WITH UE ASSIST ON LEGS TO DEMONSTRATE IMPROVED FUNCTIONAL STRENGTH Goal Time Frame: 4-6 Weeks Goal 5:: PATIENT WILL COMPLETE TUG IN < 13 SECS TO DEMONSTRATE IMPROVED GAIT STABILITY WITHOUT AD Goal Time Frame: 4-6 Weeks - Anticipated Interventions Patient/Client Instruction: Educate patient on: Condition, Plan of Care, Risk Factors For the Purpose of:: To improve self management Therapeutic Exercise to Include: Strength training, Body mechanics, Postural training, Flexibilty training, Gait and locomotor training, Neuromotor develo pment, Dynamic Lumbar Stabilization For the Purpose of:: To decrease pain, To increase ROM, To improve muscle performance and motor function, To increase tolerance to activity /condition/position, To improve ability of physical actions for home/community/work/leisure, To improve gait and locomotor functions Cryotherapy (ice pack, ice massage): Yes Thermo therapy (hot pack): Yes For the Purpose of:: To decrease pain, To decrease swelling/inflammation, To improve nutrient delivery to tissue Thank you for the opportunity to evaluate your patient. For Medicare and Medicare HMO plans, please review the plan of care and approve it. It will need to be FAXED BACK to us at [phone] for Medicare purposes. For Medicare only, by signing this I certify the plan of care. Please let me know if there are questions or concerns regarding this plan of care. Physician Sig nature: Date:
--- NOTE | 2021-07-12 14:09 | HP.PTREVAL_ITS ---
Dr. Sam Brower MD, It has been my pleasure to treat VICENTE GARCIA over the last 10 visits for LOW BACK PAIN, THORACIC PAIN, THORACIC RADICULOPATHY AND BACK SPASMS.. Please see the progress note below for an update on the physical therapy plan of care! Subjective: PATIENT REPORTS HE STILL HAS BACK PAIN BUT IT IS GETTING BETTER AND HE THINKS PHYSICAL THERPAY IS HELPING. Objective/Function: PATIENT WAS SEEN TODAY FOR RE-ASSESSMENT OF PROGRESS TOWARD THE SET PT GOALS AND THE NEED FOR FURTHER PHYSICAL THERAPY VS READINESS FOR D ISCHARGE. UPON EXAM TODAY PATIENTS 30 SEC SIT TO STAND TEST AND TUG TIME HAVE IMPROVED. HE IS REPORTING DECREASED PAIN AND HIS BACK OSWESTRY SCORE HAS IMPROVED. HE IS A GOOD CANDIDATE TO CONTINUE PT BASED ON PROGRESS MADE AND ROOM FOR FUTHER IMPROVEMENT. PATIENT IS AGREEABLE. Plan Plan: CONTINUE PT 2X'S A WK X 5 WKS TO PROGRESS HEP, CONTINUE POSTURE KEN ECTION/STRENGTHENING, INSTRUCTION IN APPROPRIATE BODY MECHANICS AND ACTIVITY MODIFICATIONS. DLS STARTING WITH A NEUTRAL SPINE PROGRESSING ROM REEMA. KAITLNI LE ROM, STRETCHING AND STRENGTHENING. HEP INSTRUCTION. Balance/Gait/Functional tests - Balance/Special Test Scores Oswestry Low Back Score: 25 TUG Test Time Seconds: 14.05 Tug Test: <20 sec.=mostly independent 30 Second Chair Rise Test Seconds: 5 Goals Goal 1:: DECREASE C/O MID AND LOW BACK PAIN Goal Time Frame: 4-6 Weeks Goal Progress: Progressing Goal 2:: IMPROVE PERSONAL CARE, LIFTING, WALKING, SITTING, STANDING, SOCIAL LIFE, TRAVEL AND HOMEMAKING FUNCTION Goal Time Frame: 4-6 Weeks Goal Progress: Progressing Goal 3:: INSTRUCT IN PROPHYLAXIS Goal Time Frame: 4-6 Weeks Goal Progress: Progressing Goal 4:: PATIENT WILL COMPLETE 6 STANDS IN 30 SECS WITH UE ASSIST ON LEGS TO DEMONSTRATE IMPROVED FUNCTIONAL STRENGTH Goal Time Frame: 4-6 Weeks Goal Progress: Progressing Goal 5:: PATIENT WILL COMPLETE TUG IN < 13 SECS TO DEMONSTRATE IMPROVED GAIT STABILITY WITHOUT AD Goal Time Frame: 4-6 Weeks Goal Progress: Progressing Anticipated Interventions Patient/Client Instruction: Educate patient on: Condition, Plan of Care, Risk Factors For the Purpose of:: To improve self management Therapeutic Exercise to Include: Strength training, Body mechanics, Postural training, Flexibilty training, Gait and locomotor training, Neuromotor development, Dynamic Lumbar Stabilization For the Purpose of:: To decrease pain, To increase ROM, To improve muscle performance and motor function, To increase tolerance to activity/condition/position, To improve ability of physical actions for home/community/work/leisure, To improve gait and locomotor functions Cryotherapy (ice pack, ice massage): Yes Thermo therapy (hot pack): Yes For the Purpose of:: To decrease pain, To decrease swelling/inflammation, To improve nutrient delivery to tissue Please do not hesitate to contact me at [phone] by phone or if you have questions or concerns regarding this new plan of care! Sincerely, Debbi Dorsey, PT, Cert MDT
--- NOTE | 2021-11-20 12:43 | HP.PT.NRP ---
VICENTE GARCIA was seen in my office for initial evaluation on 05/28/21. The following Plan of Care was established for this patient: Initial Frequency: 2-3x /Week Initial Duration: 4-6 Weeks Patient/Client Instruction: Educate patient on: Condition, Plan of Care, Risk Factors For the Purpose of:: To improve self management Therapeutic Exercise to Include: Strength training, Body mechanics, Postural training, Flexibilty training, Gait and locomotor training, Neuromotor development, Dynamic Lumbar Stabilization For the Purpose of:: To decrease pain, To increase ROM, To improve muscle performance and motor function, To increase tolerance to activity/condition/position, To improve ability of physical actions for home/community/work/leisure, To improve gait and locomotor functions Cryotherapy (ice pack, ice massage): Yes Thermo therapy (hot pack): Yes For the Purpose of:: To decrease pain, To decrease swelling/inflammation, To improve nutrient delivery to tissue This patient was last seen in our office 08/16/21. Pertinent comments regarding their Physical therapy will appear below: This patient has not returned to Physical Therapy and is appropriate to return to MD for further follow-up as needed. At this point I will be discontinuing this patient from physical therapy. I would be happy to see this patient again in the future if found appropriate by the physician. Thank you! Debbi Dorsey, PT, Cert MDT Balance/Gait/Functional tests - Balance/Special Test Scores Oswestry Low Back Score: 25 TUG Test Time Seconds: 13.38 Tug Test: <20 sec.=mostly independent 30 Second Chair Rise Test Seconds: 1
== END 2021-08-16 19:00 | disposition home or self-care (01) ==
LOC: PT 13:30
PROVIDERS: PCP Family Medicine Geriatric Medicine; Referring Provider Family Medicine Geriatric Medicine; Visit Provider Family Medicine Geriatric Medicine
DX: M54.50 Low back pain, unspecified; M62.830 Muscle spasm of back; M54.14 Radiculopathy, thoracic region
CPT/HCPCS: 97110; 97112; 97162; 97164; 97530

== ENCOUNTER → 2021-08-23 | Outpatient (CLI) | payer MEDICARE, MEDICAID, SELFPAY ==
[2021-08-23 17:03] LABS: Absolute Lymphocyte Count 0.85 X10^3/uL (0.83-4.51); Absolute Neutrophil Count 4.5 X10^3/uL (2.0-7.7); Basophil# 0.04 X10^3/uL; Basophil% 0.6 % (0-1); Eosinophil# 0.17 X10^3/uL; Eosinophils% 2.8 % (0-5); Hematocrit 46.9 % (40-54); Hemoglobin 15.7 g/dL (13.0-16.5); Lymphocyte # 0.85 X10^3/ul (0.83-4.51); Lymphocyte % 13.8 % (19-41); Mean Corp Hgb Conc 33.5 g/dL (32-36); Mean Corpuscular Hgb 29.5 pg (27.0-32.0); Mean Corpuscular Volume 88.2 fL (80-94); Mean Platelet Vol. 10.6 fl (6.2-12.0); Monocyte# 0.57 X10^3/uL; Monocyte% 9.3 % (0-10); NRBC Flagged by Analyzer 0 % (0-5); Neutrophil # 4.48 X10^3/uL (2.7-7.7); Neutrophil % 72.7 % (47-70); Platelet Count 175 K/mm3 (150-450); RBC Distribution Width CV 12.5 % (11.6-14.6); RBC Distribution Width SD 40.2 fl (35.1-43.9); Red Blood Count 5.32 M/mm3 (4.6-6.2); White Blood Count 6.2 K/mm3 (4.4-11.0)
[2021-08-23 18:04] LABS: ALB/GLOB Ratio 1.3 RATIO (0.9-2.4); AST(SGOT) 17 U/L (15-37); Alanine Aminotransfer ALT/SGPT 26 U/L (16-61); Alkaline Phosphatase 168 U/L (45-117); Anion Gap 7 (5-15); BUN 22 mg/dL (7-18); BUN/Creat Ratio 26.5 RATIO (10-20); Calcium,Total 9.1 mg/dL (8.5-10.1); Chloride 107 mmol/L (98-107); Creatinine, Serum 0.83 mg/dL (0.70-1.30); EST Glomerular Filtration Rate 98 mL/min (>60); Est Glom Filt Rate - Afr Amer 119 mL/min (>60); Glucose 121 mg/dL (74-106); Sodium Level 140 mmol/L (136-145); Thyroid Stim Hormone (TSH) 1.84 uIU/mL (0.358-3.74)
[2021-08-23 19:17] LABS: Vitamin D,25 Hydroxy 18.2 ng/mL
== END | disposition home or self-care (01) ==
LOC: POLAB3 16:06
PROVIDERS: PCP Family Medicine Geriatric Medicine; Visit Provider Family Medicine Geriatric Medicine
DX: E55.9 Vitamin D deficiency, unspecified (principal); R53.83 Other fatigue
CPT/HCPCS: 36415; 80053; 82306; 84443; 85025

== ENCOUNTER → 2022-02-28 | Outpatient (CLI) | payer MEDICARE, MEDICAID, SELFPAY ==
[2022-02-28 17:27] LABS: Hematocrit 47.1 % (40-54); Mean Corpuscular Hgb 29.6 pg (27.0-32.0); Mean Corpuscular Volume 87.2 fL (80-94); Mean Platelet Vol. 11.3 fl (6.2-12.0); POSITIVE DIFFERENTIAL YES; RBC Distribution Width CV 12.4 % (11.6-14.6); RBC Distribution Width SD 39.1 fl (35.1-43.9); White Blood Count 4.4 K/mm3 (4.4-11.0)
[2022-02-28 17:36] LABS: Platelet Count 148 K/mm3 (150-450)
[2022-02-28 17:37] LABS: Absolute Neutrophil Count 3.1 X10^3/uL (2.0-7.7); Basophil# 0.03 X10^3/uL; Basophil% 0.7 % (0-1); Differential Indicated SCAN CRITERIA MET; Eosinophil# 0.12 X10^3/uL; Eosinophils% 2.8 % (0-5); Lymphocyte % 13.8 % (19-41); Monocyte# 0.45 X10^3/uL; Monocyte% 10.3 % (0-10); Neutrophil # 3.12 X10^3/uL (2.7-7.7); Neutrophil % 71.7 % (47-70)
[2022-02-28 17:47] LABS: Vitamin D,25 Hydroxy 16.3 ng/mL
[2022-02-28 18:00] LABS: ALB/GLOB Ratio 1.4 RATIO (0.9-2.4); AST(SGOT) 10 U/L (15-37); Alanine Aminotransfer ALT/SGPT 23 U/L (16-61); Albumin, Serum 3.8 g/dL (3.2-5.0); Alkaline Phosphatase 178 U/L (45-117); Anion Gap 8 (5-15); BUN 17 mg/dL (7-18); BUN/Creat Ratio 19.2 RATIO (10-20); Calcium,Total 8.6 mg/dL (8.5-10.1); Chloride 109 mmol/L (98-107); Creatinine, Serum 0.89 mg/dL (0.70-1.30); EST Glomerular Filtration Rate 91 mL/min (>60); Est Glom Filt Rate - Afr Amer 110 mL/min (>60); Globulin 2.8 g/dL (2.2-4.2); Glucose 180 mg/dL (74-106); PSA,Total - Annual Screen 0.98 ng/mL (0.00-4.00); Potassium 3.7 mmol/L (3.5-5.1); Protein, Total 6.6 g/dL (6.4-8.2); Sodium Level 142 mmol/L (136-145); Thyroid Stim Hormone (TSH) 2.68 uIU/mL (0.358-3.74)
[2022-02-28 18:01] LABS: Differential Comment SCANNED
[2022-03-04 10:10] LABS: Hemoglobin A1c 5.7 % (3.8-5.6)
== END | disposition home or self-care (01) ==
LOC: POLAB3 15:10
PROVIDERS: PCP Family Medicine Geriatric Medicine; Visit Provider Family Medicine Geriatric Medicine
DX: R53.83 Other fatigue (principal); Z12.5 Encounter for screening for malignant neoplasm of prostate; R73.9 Hyperglycemia, unspecified
CPT/HCPCS: 36415; 80053; 82306; 83036; 84153; 84443; 85025; G0103

== ENCOUNTER → 2022-08-22 | Outpatient (CLI) | payer MEDICARE, MEDICAID, SELFPAY ==
[2022-08-22 17:51] LABS: Absolute Lymphocyte Count 0.83 X10^3/uL (0.83-4.51); Absolute Neutrophil Count 2.8 X10^3/uL (2.0-7.7); Basophil# 0.02 X10^3/uL; Basophil% 0.5 % (0-1); Eosinophil# 0.23 X10^3/uL; Eosinophils% 5.3 % (0-5); Hematocrit 46.1 % (40-54); Hemoglobin 15.5 g/dL (13.0-16.5); Lymphocyte # 0.83 X10^3/ul (0.83-4.51); Lymphocyte % 19.2 % (19-41); Mean Corp Hgb Conc 33.6 g/dL (32-36); Mean Corpuscular Hgb 30.2 pg (27.0-32.0); Mean Corpuscular Volume 89.7 fL (80-94); Mean Platelet Vol. 11.4 fl (6.2-12.0); Monocyte# 0.42 X10^3/uL; Monocyte% 9.7 % (0-10); NRBC Flagged by Analyzer 0 % (0-5); Neutrophil % 64.8 % (47-70); Platelet Count 154 K/mm3 (150-450); RBC Distribution Width CV 12.9 % (11.6-14.6); RBC Distribution Width SD 42.1 fl (35.1-43.9); Red Blood Count 5.14 M/mm3 (4.6-6.2); White Blood Count 4.3 K/mm3 (4.4-11.0)
[2022-08-22 18:05] LABS: Vitamin D,25 Hydroxy 20.8 ng/mL
[2022-08-22 18:37] LABS: ALB/GLOB Ratio 1.4 RATIO (0.9-2.4); AST(SGOT) 17 U/L (15-37); Alanine Aminotransfer ALT/SGPT 28 U/L (16-61); Alkaline Phosphatase 183 U/L (45-117); Anion Gap 8 (5-15); BUN 23 mg/dL (7-18); BUN/Creat Ratio 27.7 RATIO (10-20); Calcium,Total 8.7 mg/dL (8.5-10.1); Chloride 109 mmol/L (98-107); Cholesterol 122 mg/dL (200); Creatinine, Serum 0.83 mg/dL (0.70-1.30); EST Glomerular Filtration Rate 98 mL/min (>60); Est Glom Filt Rate - Afr Amer 118 mL/min (>60); Globulin 2.8 g/dL (2.2-4.2); Glucose 128 mg/dL (74-106); High Density Lipoprotein 36 mg/dL; Potassium 3.8 mmol/L (3.5-5.1); Protein, Total 6.8 g/dL (6.4-8.2); Sodium Level 142 mmol/L (136-145); Thyroid Stim Hormone (TSH) 3.08 uIU/mL (0.358-3.74); Triglycerides 125 mg/dL; Very Low Density Lipoprotein 25 mg/dL (5-40)
== END | disposition home or self-care (01) ==
PROVIDERS: PCP Family Medicine Geriatric Medicine; Visit Provider Family Medicine Geriatric Medicine
DX: E55.9 Vitamin D deficiency, unspecified (principal); R53.83 Other fatigue
CPT/HCPCS: 36415; 80053; 80061; 82306; 84443; 85025

== ENCOUNTER → 2023-08-28 | Outpatient (CLI) | payer MEDICARE, MEDICAID, SELFPAY ==
[2023-08-28 16:42] LABS: Absolute Lymphocyte Count 0.91 X10^3/uL (0.83-4.51); Absolute Neutrophil Count 4.6 X10^3/uL (2.0-7.7); Basophil# 0.02 X10^3/uL; Basophil% 0.3 % (0-1); Eosinophils% 1.6 % (0-5); Hematocrit 48.4 % (40-54); Hemoglobin 16.7 g/dL (13.0-16.5); Lymphocyte # 0.91 X10^3/ul (0.83-4.51); Lymphocyte % 14.8 % (19-41); Mean Corp Hgb Conc 34.5 g/dL (32-36); Mean Corpuscular Hgb 30.4 pg (27.0-32.0); Mean Corpuscular Volume 88.2 fL (80-94); Mean Platelet Vol. 11.4 fl (6.2-12.0); Monocyte# 0.48 X10^3/uL; Monocyte% 7.8 % (0-10); NRBC Flagged by Analyzer 0 % (0-5); Neutrophil # 4.58 X10^3/uL (2.7-7.7); Neutrophil % 74.8 % (47-70); Platelet Count 162 K/mm3 (150-450); RBC Distribution Width CV 12.7 % (11.6-14.6); RBC Distribution Width SD 41.3 fl (35.1-43.9); Red Blood Count 5.49 M/mm3 (4.6-6.2); White Blood Count 6.1 K/mm3 (4.4-11.0)
[2023-08-28 16:56] LABS: Vitamin D,25 Hydroxy 11.4 ng/mL
[2023-08-28 17:06] LABS: ALB/GLOB Ratio 1.3 RATIO (0.9-2.4); AST(SGOT) 17 U/L (15-37); Alanine Aminotransfer ALT/SGPT 25 U/L (16-61); Albumin, Serum 4.1 g/dL (3.2-5.0); Alkaline Phosphatase 195 U/L (45-117); Anion Gap 8 (5-15); BUN 17 mg/dL (7-18); Calcium,Total 9.2 mg/dL (8.5-10.1); Chloride 106 mmol/L (98-107); Cholesterol 129 mg/dL (200); EST Glomerular Filtration Rate 79 mL/min (>60); Est Glom Filt Rate - Afr Amer 95 mL/min (>60); Globulin 3.1 g/dL (2.2-4.2); Glucose 144 mg/dL (74-106); High Density Lipoprotein 38 mg/dL; PSA,Total - Annual Screen 1.02 ng/mL (0.00-4.00); Potassium 4.4 mmol/L (3.5-5.1); Protein, Total 7.2 g/dL (6.4-8.2); Sodium Level 139 mmol/L (136-145); Thyroid Stim Hormone (TSH) 2.78 uIU/mL (0.358-3.74); Triglycerides 122 mg/dL; Very Low Density Lipoprotein 24 mg/dL (5-40)
[2023-08-29 11:28] LABS: Hemoglobin A1c 5.8 % (3.8-5.6)
== END | disposition home or self-care (01) ==
PROVIDERS: PCP Family Medicine Geriatric Medicine; Visit Provider Family Medicine Geriatric Medicine
DX: E55.9 Vitamin D deficiency, unspecified (principal); E78.5 Hyperlipidemia, unspecified; R53.83 Other fatigue; R73.9 Hyperglycemia, unspecified; Z12.5 Encounter for screening for malignant neoplasm of prostate
CPT/HCPCS: 36415; 80053; 80061; 82306; 83036; 84153; 84443; 85025; G0103

== ENCOUNTER 2023-11-10 20:52 | Inpatient (IN) | payer MEDICARE, MEDICAID, SELFPAY ==
[2023-11-10] VITALS (7 sets, daily range): BP systolic 114–142; BP diastolic 73–121; PULSE 121–139; RESP 18–39; TEMP 36.5–37.3; O2SAT 92–94; BMI 25.9
--- NOTE | 2023-11-10 22:05 | EKG12_ITS ---
Test Reason : DYSRHYTHMIA Blood Pressure : / mmHG Vent. Rate : 128 BPM Atrial Rate : 128 BPM P-R Int : 138 ms QRS Dur : 086 ms QT Int : 318 ms P-R-T Axes : 038 011 063 degrees QTc Int : 464 ms Sinus tachycardia Otherwise normal ECG Confirmed by CARLO ETIENNE, KOREY ([id number]), online content editor NIGEL DAVIS ([id number]) on 11/11/2023 8:53:26 AM Referred By: LETI Confirmed By:KOREY MATOS MD
--- NOTE | 2023-11-10 22:05 | CT_ITS ---
INDICATION: Trauma, fall, injury EXAMINATION: CT BRAIN - CT Head or Brain W/O Contrast Injection TECHNIQUE: Multiple axial images were obtained of the head without intravenous contrast. A radiation dose optimization technique was used for this scan. IV Contrast dosage and agent: None. COMPARISON: None FINDINGS: BRAIN PARENCHYMA: No intra- or extra-axial hemorrhage. No evidence of acute infarct. No intracranial mass or mass effect. There is preservation of the fontana/white matter interface. Posterior fossa structures are unremarkable. CSF SPACES: Appropriate for age. No hydrocephalus. Basal cisterns are patent. CALVARIUM, SKULL BASE, PARANASAL SINUSES AND MASTOID AIR CELLS: Clear. No acute fracture. ORBITS: Both globes, extraocular muscles, optic nerves and retrobulbar fat appear unremarkable. CT/Brain/Head without Contrast IMPRESSION: No acute intracranial findings. Electronically Signed: Michael Pinon MD at 23:57 EDT ,
[2023-11-10] MEDS: Albuterol 2.5 MG/3 ML VIAL.NEB. INHALATION (22:14)
[2023-11-10] MEDS: Ipratropium/Albuterol Sulfate 3 ML AMPUL.NEB INHALATION (22:14)
--- NOTE | 2023-11-10 22:21 | EX.ED.GENINJ ---
HPI History of Present Illness Chief Complaint: Fall Informant: patient and spouse/S.O. Narrative Narrative: 68-year-old male presenting to the emergency room after a fall. Patient's significant other called EMS after she found him laying on the ground leaning up against a wall. She states that she last saw him around 1630 hrs. today and found him just before calling the ambulance. Patient believes he is on his way to the bathroom. Patient has noted that he has had a cough some shortness of breath over the past several days. He is unsure what caused him to fall. He denies any injuries from the fall. He notes that he is a residential smoker. He states he does not wear oxygen at home. He denies any fevers. He denies being on a blood thinner. He denies any history of DVT or PE or risk factors. PFSH PFSH Home Medications ?Medication ?Instructions ?Recorded ?Last Taken ?Type Clonazepam 0.5 mg PO TID PRN Anxiety 09/09/19 Unknown History bupropion HCl 150 mg 24 hr tablet, 150 mg PO BID depression 09/09/19 Unknown History extended release risperidone 2 mg tablet 2 mg PO BID depression/anxiety 09/09/19 Unknown History simvastatin 40 mg tablet 40 mg PO DAILY cholesterol 09/09/19 Unknown History trazodone 50 mg tablet 50 mg PO QHS sleep 09/09/19 Unknown History albuterol sulfate 90 mcg/actuation inhalation sob 11/11/23 Unknown History aerosol inhaler fluticasone fur. 100 mcg-umeclid 1 ea inhalation DAILY sob 11/11/23 Unknown History 62.5 mcg-vilant 25 mcg inhalat.powder (Trelegy Ellipta) naproxen 500 mg tablet 500 mg PO BID pain 11/11/23 Unknown History Allergy/AdvReac Type Severity Reaction Status Date / Time No Known Allergies Allergy Verified 11/10/23 21:02 Social History Smoking Status: Current every day smoker tobacco type: cigarettes ROS ROS ED Constitutional Constitutional ED: Denies chills, fever(s) or weight loss Eyes Eyes: Denies change in vision or diplopia ENT ENT ED: Denies ear pain, rhinorrhea or sore throat Cardiovascular Cardiovascular: Denies chest pain, orthopnea, palpitations or racing heartbeat Respiratory/Chest Respiratory/Chest: Reports cough, dyspnea and dyspnea on exertion; Denies orthopnea Gastrointestinal Gastrointestinal: Denies abdominal pain, diarrhea, nausea or vomiting Genitourinary Genitourinary ED: Denies dysuria, hematuria or urinary frequency Musculoskeletal Musculoskeletal: Denies arthralgias or myalgias Integumentary Denies abscess or rash Neurologic Neurologic: Denies headache(s) or weakness Psychiatric Psychiatric: Denies anxiety, depression, suicidal ideation or suicidal thoughts Endocrine Endocrinology: Denies polydipsia, polyphagia or polyuria Allergic/Immunologic Allergic/Immunologic ED: Denies mouth swelling, tongue swelling or urticaria EXAM Physical Exam Const Vital Signs: 11/10/23 21:02 11/10/23 21:02 11/10/23 21:09 Temperature 99.2 F H Temperature Source Oral Pulse Rate 139 H 139 H Respiratory Rate 18 Respiratory Effort Normal Respiratory Depth Normal Respiratory Pattern Normal Blood Pressure 142/121 H 142/121 H Blood Pressure Mean 128 128 Pulse Ox 94 94 Oxygen Delivery Method Room Air Room Air Room Air Oxygen Flow Rate (L/min) 11/10/23 21:09 11/10/23 22:00 11/10/23 22:05 Temperature 99.2 F H 98.9 F Temperature Source Oral Oral Pulse Rate 137 H 130 H Respiratory Rate 18 29 H Respiratory Effort Respiratory Depth Respiratory Pattern Blood Pressure 142/121 H 114/73 Blood Pressure Mean 128 86 Pulse Ox 94 92 92 Oxygen Delivery Method Room Air Nasal Cannula Nasal Cannula Oxygen Flow Rate (L/min) 4 4 11/10/23 22:09 11/10/23 22:14 11/10/23 23:00 Temperature 97.7 F L 97.9 F Temperature Source Oral Oral Pulse Rate 130 H 131 H 121 H Respiratory Rate 29 H 32 H 39 H Respiratory Effort Respiratory Depth Respiratory Pattern Tachypnea Blood Pressure 114/73 136/75 H Blood Pressure Mean 86 95 Pulse Ox 92 92 Oxygen Delivery Method Nasal Cannula Nasal Cannula Oxygen Flow Rate (L/min) 2 4 11/11/23 00:00 11/11/23 01:00 Temperature 98.5 F 98.6 F Temperature Source Oral Oral Pulse Rate 135 H 146 H Respiratory Rate 32 H 32 H Respiratory Effort Respiratory Depth Respiratory Pattern Blood Pressure 140/81 H 156/80 H Blood Pressure Mean 100 105 Pulse Ox 90 92 Oxygen Delivery Method Nasal Cannula Nasal Cannula Oxygen Flow Rate (L/min) 4 2 Positive well nourished and well developed General Appearance ED: well developed and NAD HEENT Reports normocephalic, head/scalp atraumatic and moist mucous membranes Eyes PERRL and EOMs intact bilaterally Neck full ROM, no lymphadenopathy, supple and no JVD Resp Resp Narrative: Patient appears mildly tachypneic Auscultation: rhonchi and wheezes Cardio regular rate, regular rhythm and no murmurs Rate: tachycardic GI normal to inspection, nondistended, normoactive bowel sounds and non-tender Palpation: soft Back/Spine no CVA tenderness and normal ROM Extremity normal to inspection General Extremety ED: Negative for edema General Extremity: Negative for edema Neuro oriented x3 and CN's II-XII intact bilaterally Sensorium / Orientation: alert Motor Exam: strength 5/5 throughout Psych mental status grossly normal Mood & Affect: Negative for depressed or tearful Skin no rashes or lesions noted Skin Narrative: There is mild abrasions to the bilateral lower knees. And to the upper right back. Patient has mild erythema from what would be presumed to pressure changes of the mid right thoracic back MDM MDM MDM Narrative Medical decision making narrative: Differential diagnosis includes COPD exacerbation pneumonia intracranial hemorrhage/skull fracture pulmonary embolism acute coronary syndrome rhabdomyolysis renal failure pneumothorax pleural effusion/hemothorax. White count is 18.8 with hemoglobin 15.8 platelet count of 151 INR 1.4 PTT 35 BUN 27 creatinine 1.27 lactic acid is elevated 3.9. I believe that the hypoxia and the work of breathing is more contributing to the lactic acid then a shock state. Patient is perfusing normally has normal tensive has no mottling and is making urine. A second lactic acid will be obtained. Glucose 217 troponin is slightly elevated at 93 delta is 95 BNP is 226.5 total creatinine kinase is elevated at 1743. Urinalysis 5-10 red cells 5-10 white cells 1+ bacteria cultures were sent. Patient received IV fluids breathing treatments. My independent interpretation of the chest x-ray is possible right upper lobe infiltrate. A CTA of the chest was obtained which demonstrates consolidation posterior inferiorly on the right lung. He received Rocephin and azithromycin. Patient became more tachycardic and more dyspneic. He was placed on BiPAP and we gave him some Ativan to help him relax. Patient will need to be admitted to the hospital as he continues to have hypoxia and increased work of breathing. We are going to continue to observe him here in the emergency department until we feel he is more stable for the floor or make a decision on ICU. He is currently remaining in a sinus rhythm. Patient continued to decline. Heart rate continued to increase and his respirations approached 55. He was appearing extremely fatigued. He shook his head no when asked if the BiPAP was at all helping him. We talked about placing him on a ventilator which he is receptive to. Patient underwent rapid sequence intubation using etomidate and rocuronium. A 7.5 endotracheal tube was passed on the first attempt without any difficulty and secured at 23 cm. Equal breath sounds bilateral with good color changes noted. My independent interpretation of the postintubation x-ray x-ray is adequate placement of the OG and endotracheal tubes. There is now a infiltrate seen in the lower right lung pereyra. He developed fever up to 104.3 received rectal Tylenol. History & Record Review Discussion w/independent historian: EMS personnel, Patient and Significant other Lab Data Attestation: I reviewed the patient's lab results. Labs: Laboratory Results - last 24 hr 11/10/23 11/10/23 11/11/23 20:50 22:20 00:40 WBC 18.8 H RBC 5.32 Hgb 15.8 Hct 46.6 MCV 87.6 MCH 29.7 MCHC 33.9 RDW Std Deviation 41.4 RDW Coeff of Jackie 13.1 Plt Count 151 MPV 12.7 H Immature Gran % (Auto) 1.500 H Neut % (Auto) 86.4 H Lymph % (Auto) 3.6 L Zavala % (Auto) 7.4 Eos % (Auto) 0.7 Baso % (Auto) 0.4 Absolute Neuts (auto) 16.2 H Absolute Lymphs (auto) 0.67 L Nucleated RBC % 0 Differential Comment SCANNED PT 16.8 H INR 1.4 APTT 35.0 Sodium 134 L Potassium 3.9 Chloride 102 Carbon Dioxide 21.0 Anion Gap 11 BUN 27 H Creatinine 1.27 Estim Creat Clear Calc 57.64 Est GFR (MDRD) Af Amer 72 Est GFR (MDRD) Non-Af 60 BUN/Creatinine Ratio 21.3 H Glucose 217 H Lactic Acid 3.9 H* Calcium 9.1 Total Bilirubin 2.00 H Direct Bilirubin 0.78 H AST 50 H ALT 34 Alkaline Phosphatase 169 H Total Creatine Kinase 1743 H Troponin I High Sens 93 H 95 H B-Natriuretic Peptide 226.5 H Total Protein 7.1 Albumin 3.9 Globulin 3.2 Lipase < 10 L Urine Color Janene Urine Clarity Sl. Cloudy Urine pH 6.0 Ur Specific [place] 1.020 Urine Protein 30 H Urine Glucose (UA) 50 H Urine Ketones 15 H Urine Occult Blood 250 H Urine Nitrite Negative Urine Bilirubin Negative Urine Urobilinogen 4 H Ur Leukocyte Esterase 25 H Urine RBC 5-10 SEEN Urine WBC 5-10 SEEN Ur Squamous Epith Cells 0 SEEN Ur Transition Epith Cell 0-5 SEEN Amorphous Sediment 1+ Urine Bacteria 1+ Urine Mucus 0 SEEN Radiography Diagnostic Testing: Clinical Impression(s) from Imaging Studies Brain CT 11/10/23 22:05 IMPRESSION: No acute intracranial findings. Electronically Signed: Michael Pinon MD at 23:57 EDT , Chest X-Ray 11/10/23 22:25 IMPRESSION: No radiographic evidence of acute cardiopulmonary disease. Cardiomegaly versus pericardial effusion. Probable chronic left posterior rib trauma with deformity. Electronically Signed: Michael Pinon MD at 23:11 EDT , Chest CTA 11/10/23 23:03 IMPRESSION: 1. Dense right lower lobe consolidation superimposed on mild centrilobular emphysematous changes. Findings consistent with pneumonia. 2. No filling defects identified in the pulmonary arteries to suggest pulmonary embolism, but small segmental pulmonary emboli are not excluded due to artifact caused by patient respiratory motion. 3. The presence of pulmonary emphysema on CT is an independent risk factor for lung cancer, recommend consideration for low-dose CT (LDCT) lung cancer screening in the future. This current chest CT serves as a baseline, a follow-up LDCT screening examination would be recommended in 12 months. Electronically Signed: Salvador Ch MD at 1:30 EDT , EKG Initial EKG: Attestation: I personally reviewed and interpreted this EKG as follows: Comments: Sinus tachycardia ventricular rate of 128 bpm Management Discussion w/another healthcare provider: Hospitalist (Dr. Johnson) Critical Care Time Critical Care Time: Yes Critical care time (excluding procedures): 30-74 minutes (35 min), Including time spent:, Discussing w/Patient &/or Family/University Relations Director, Discussing w/Consultants, Arranging Admission or Transfer and Performing Direct Patient Care at Bedside Discharge Plan Dx/Rx/DC Orders Clinical Impression: Pneumonia, Tobacco abuse, Anxiety, Acute hypoxemic respiratory failure, Rhabdomyolysis, Fall Disposition Disposition: Acute Care Hospital [facility] Discharge Date/Time: 11/11/23 03:33
--- NOTE | 2023-11-10 22:25 | RAD_ITS ---
INDICATION: Hypoxia, COPD EXAMINATION/TECHNIQUE: X-RAY - portable upright AP chest x-ray COMPARISON: 05/08/2015 FINDINGS: LINES/DEVICES: None. LUNGS: No consolidation, edema or effusion. No pneumothorax. MEDIASTINUM AND CARDIOVASCULAR STRUCTURES: Cardiac silhouette enlarged. BONES AND SOFT TISSUES: [Posterior left sixth rib deformity, possibly old trauma. RAD/Chest 1 View (Portable) IMPRESSION: No radiographic evidence of acute cardiopulmonary disease. Cardiomegaly versus pericardial effusion. Probable chronic left posterior rib trauma with deformity. Electronically Signed: Michael Pinon MD at 23:11 EDT ,
[2023-11-10 22:27] LABS: Mucous, Urine 0 SEEN /hpf (<or=2+); Squamous Epithelial Cells - UA 0 SEEN /hpf (0-5)
[2023-11-10 22:31] LABS: Color, Urine Amber (Yellow); Glucose, Dipstick 50 mg/dl (Normal); Ketone-Dipstick 15 mg/dl (Negative); Leukocyte Esterase-Dipstick 25 /ul (Negative); Nitrite-Dipstick Negative (Negative); Occult Blood-Urine 250 /ul (Negative); Protein-Dipstick 30 mg/dl (Negative); Urine Bilirubin Dipstick Negative (Negative); Urine Clarity Sl. Cloudy (Clear); Urine Urobilinogen 4 mg/dl (Normal)
--- NOTE | 2023-11-10 22:35 | CPS ---
[2214] x1 Albuterol given to pt. in ER as well
[2023-11-10 22:38] LABS: Absolute Lymphocyte Count 0.67 X10^3/uL (0.83-4.51); Absolute Neutrophil Count 16.2 X10^3/uL (2.0-7.7); Basophil# 0.07 X10^3/uL; Basophil% 0.4 % (0-1); Eosinophil# 0.13 X10^3/uL; Eosinophils% 0.7 % (0-5); Hematocrit 46.6 % (40-54); Hemoglobin 15.8 g/dL (13.0-16.5); Lymphocyte # 0.67 X10^3/ul (0.83-4.51); Lymphocyte % 3.6 % (19-41); Mean Corp Hgb Conc 33.9 g/dL (32-36); Mean Corpuscular Hgb 29.7 pg (27.0-32.0); Mean Corpuscular Volume 87.6 fL (80-94); Mean Platelet Vol. 12.7 fl (6.2-12.0); Monocyte# 1.38 X10^3/uL; Monocyte% 7.4 % (0-10); NRBC Flagged by Analyzer 0 % (0-5); Neutrophil # 16.23 X10^3/uL (2.7-7.7); Neutrophil % 86.4 % (47-70); POSITIVE MORPHOLOGY YES; Platelet Count 151 K/mm3 (150-450); RBC Distribution Width CV 13.1 % (11.6-14.6); RBC Distribution Width SD 41.4 fl (35.1-43.9); Red Blood Count 5.32 M/mm3 (4.6-6.2); White Blood Count 18.8 K/mm3 (4.4-11.0)
[2023-11-10 22:39] LABS: International Normalized Ratio 1.4; Prothrombin Time (Protime)PT. 16.8 SECONDS (11.7-14.9)
[2023-11-10 22:39] LABS: Amorphous Sediment 1+; Bacteria 1+ /hpf (None Seen); Red Blood Cells-Urine 5-10 SEEN /hpf (0-5); Transitional Epithelial - Ur 0-5 SEEN /hpf (0-5); White Blood Cells 5-10 SEEN /hpf (0-5)
[2023-11-10] MEDS: 0.9% Normal Saline (1000mL) 1,000 ML 1000 ML IV (22:43)
[2023-11-10 23:00] LABS: Lactic Acid 3.9 mmol/L (0.4-1.9)
[2023-11-10 23:00] LABS: BNP,B-Type NATRIURETIC PEPTIDE 226.5 pg/mL (0-100)
[2023-11-10 23:01] LABS: AST(SGOT) 50 U/L (15-37); Alanine Aminotransfer ALT/SGPT 34 U/L (16-61); Albumin, Serum 3.9 g/dL (3.2-5.0); Alkaline Phosphatase 169 U/L (45-117); Anion Gap 11 (5-15); BUN 27 mg/dL (7-18); BUN/Creat Ratio 21.3 RATIO (10-20); Bilirubin, Direct 0.78 mg/dL (0.00-0.30); CPK Total, Creatine Kinase 1743 U/L (39-308); Calcium,Total 9.1 mg/dL (8.5-10.1); Chloride 102 mmol/L (98-107); Creatinine, Serum 1.27 mg/dL (0.70-1.30); EST Glomerular Filtration Rate 60 mL/min (>60); Est Glom Filt Rate - Afr Amer 72 mL/min (>60); Estimated Creatinine Clearance 57.64 ml/min; Globulin 3.2 g/dL (2.2-4.2); Glucose 217 mg/dL (74-106); Lipase < 10 U/L (13-75); Potassium 3.9 mmol/L (3.5-5.1); Protein, Total 7.1 g/dL (6.4-8.2); Sodium Level 134 mmol/L (136-145); Troponin-I HS (w/2H Reflex) 93 pg/mL (3.0-78.0)
--- NOTE | 2023-11-10 23:03 | CT_ITS ---
EXAM: CT ANGIOGRAPHY CHEST WITHOUT AND WITH INTRAVENOUS CONTRAST CLINICAL INDICATION: pulmonary embolism TECHNIQUE: Helically acquired angiography images were obtained of the chest without and with intravenous contrast. This CT exam was performed using one or more of the following dose reduction techniques: automated exposure control, adjustment of the mA and/or kV according to patient size, and/or use of iterative reconstruction technique. MIP reconstructed images were created and reviewed. CONTRAST: IV 100mL [id number] RADIATION DOSE: CTDIvol = 11.47 mGy, DLP = 469.94 mGy-cm COMPARISON: Single view chest 11/10/2023. Chest CT 12/06/2016 FINDINGS: PULMONARY ARTERIES: No filling defects identified in the pulmonary arteries to suggest pulmonary embolism, but small segmental pulmonary emboli are not excluded due to artifact caused by patient respiratory motion. Normal in caliber. AORTA: Ectasia of the thoracic aorta but no dissection. GREAT VESSELS OF AORTIC ARCH: Unremarkable. Normal in caliber. No evidence of dissection. LUNGS AND PLEURAL SPACES: Dense right lower lobe consolidation superimposed on mild centrilobular emphysematous changes. No mass. No pleural effusion or thickening. No pneumothorax. HEART: Coronary artery calcification. Heart size is normal. No pericardial effusion. MEDIASTINUM: Unremarkable. No mediastinal or hilar adenopathy. Esophagus is unremarkable. No hiatal hernia. THYROID: Unremarkable. No thyroid lesions. BONES/JOINTS: Multiple chronic, incompletely healed left-sided rib fractures. Degenerative changes of the spine. Chronic T10 compression deformity. No suspicious lytic or blastic abnormality. LYMPH NODES: Reactive right hilar lymph nodes. CT/CTA Chest W/WO Contrast IMPRESSION: 1. Dense right lower lobe consolidation superimposed on mild centrilobular emphysematous changes. Findings consistent with pneumonia. 2. No filling defects identified in the pulmonary arteries to suggest pulmonary embolism, but small segmental pulmonary emboli are not excluded due to artifact caused by patient respiratory motion. 3. The presence of pulmonary emphysema on CT is an independent risk factor for lung cancer, recommend consideration for low-dose CT (LDCT) lung cancer screening in the future. This current chest CT serves as a baseline, a follow-up LDCT screening examination would be recommended in 12 months. Electronically Signed: Salvador Ch MD at 1:30 EDT ,
[2023-11-10 23:05] LABS: Differential Indicated SCAN CRITERIA MET
[2023-11-10 23:06] LABS: Differential Comment SCANNED
[2023-11-11] VITALS (69 sets, daily range): BP systolic 65–165; BP diastolic 35–95; PULSE 83–154; RESP 12–46; TEMP 36.3–40.2; O2SAT 90–100; BMI 25.9
[2023-11-11 00:26] LABS: Reflex Troponin-HS? (from REC) Y
[2023-11-11] MEDS: Azithromycin 500 MG in Dextrose 5%-Water (250mL Bag) 250 ML 250 MG IV (00:54)
[2023-11-11] MEDS: 0.9% Normal Saline (1000mL) 1,000 ML 150 ML IV (00:59)
[2023-11-11] MEDS: Ceftriaxone 1 GM/50 ML BAG IV (01:00)
[2023-11-11 01:03] LABS: Troponin-I HS 95 pg/mL (3.0-78.0)
--- NOTE | 2023-11-11 01:45 | PCM.HP.STD ---
HPI - General General Date of Admission: 11/11/23 Date of Service: 11/11/23 Chief Complaint: shortness of breath HPI Narrative VICENTE GARCIA, is a 68 M who presents to the emergency room with acute shortness of breath. Patient was found in his apartment by his significant other where he was laying against the wall for over 3 hours. Apparently patient has had a progressive cough over the past several days. Patient is a questionable historian at present time due to his respiratory status and increased work of breathing. He has a history of long-term smoking but is not on oxygen at home. He is requiring oxygen here to maintain his oxygen saturation greater than 90%. Patient is not also not on blood thinners. CT scan shows right lower lobe pneumonia but no PE. CBC shows marked leukocytosis with left shift. Lactic acid is also elevated. Patient will be admitted for pneumonia. [facility] Home Medications ?Medication ?Instructions ?Recorded ?Last Taken ?Type Clonazepam 0.5 mg PO TID PRN Anxiety 09/09/19 Unknown History bupropion HCl 150 mg 24 hr tablet, 150 mg PO BID 09/09/19 Unknown History extended release risperidone 2 mg tablet 2 mg PO BID 09/09/19 Unknown History simvastatin 40 mg tablet 40 mg PO DAILY 09/09/19 Unknown History trazodone 50 mg tablet 50 mg PO QHS 09/09/19 Unknown History Allergy/AdvReac Type Severity Reaction Status Date / Time No Known Allergies Allergy Verified 11/10/23 21:02 Social History Smoking Status: Current every day smoker tobacco type: cigarettes ROS Constitutional Constitutional: Denies chills or fever(s) Eyes Eyes: Denies blurry vision ENT HEENT: Denies abnormal hearing Cardiovascular Cardiovascular: Denies chest pain Respiratory/Chest Respiratory/Chest: Reports cough and shortness of breath at rest Gastrointestinal Gastrointestinal: Denies abdominal pain Genitourinary Genitourinary: Denies dysuria Musculoskeletal Musculoskeletal: Denies back pain Integumentary Integumentary: Denies dry skin Neurologic Neurologic: Denies abnormal gait Psychiatric Psychiatric: Reports anxiety Vital Signs Vital Signs Vital Signs: 11/10/23 21:02 11/10/23 21:02 11/10/23 21:09 Temperature 99.2 F H Temperature Source Oral Pulse Rate 139 H 139 H Respiratory Rate 18 Respiratory Effort Normal Respiratory Depth Normal Respiratory Pattern Normal Blood Pressure 142/121 H 142/121 H Blood Pressure Mean 128 128 Pulse Ox 94 94 Oxygen Delivery Method Room Air Room Air Room Air Oxygen Flow Rate (L/min) 11/10/23 21:09 11/10/23 22:00 11/10/23 22:05 Temperature 99.2 F H 98.9 F Temperature Source Oral Oral Pulse Rate 137 H 130 H Respiratory Rate 18 29 H Respiratory Effort Respiratory Depth Respiratory Pattern Blood Pressure 142/121 H 114/73 Blood Pressure Mean 128 86 Pulse Ox 94 92 92 Oxygen Delivery Method Room Air Nasal Cannula Nasal Cannula Oxygen Flow Rate (L/min) 4 4 11/10/23 22:09 11/10/23 22:14 11/10/23 23:00 Temperature 97.7 F L 97.9 F Temperature Source Oral Oral Pulse Rate 130 H 131 H 121 H Respiratory Rate 29 H 32 H 39 H Respiratory Effort Respiratory Depth Respiratory Pattern Tachypnea Blood Pressure 114/73 136/75 H Blood Pressure Mean 86 95 Pulse Ox 92 92 Oxygen Delivery Method Nasal Cannula Nasal Cannula Oxygen Flow Rate (L/min) 2 4 11/11/23 00:00 11/11/23 01:00 Temperature 98.5 F 98.6 F Temperature Source Oral Oral Pulse Rate 135 H 146 H Respiratory Rate 32 H 32 H Respiratory Effort Respiratory Depth Respiratory Pattern Blood Pressure 140/81 H 156/80 H Blood Pressure Mean 100 105 Pulse Ox 90 92 Oxygen Delivery Method Nasal Cannula Nasal Cannula Oxygen Flow Rate (L/min) 4 2 Weight Weight: 185 lb 10.067 oz Body Mass Index (BMI) 25.9 Physical Exam Const alert Orientation / Consciousness: confused HEENT normocephalic and head/scalp atraumatic Neck no lymphadenopathy Lymph Lymphatic: no lymphadenopathy noted Resp Effort and Inspection: tachypneic, respiratory distress and labored Auscultation: rhonchi right lower Cardio regular rate, S1 normal heart sound and S2 normal heart sound Rate: tachycardic GI normal to inspection, nondistended, normoactive bowel sounds Extremity normal capillary refill Skin General Skin Exam: no breakdown Neuro no focal motor deficits and no sensory deficits noted Psych Mood & Affect: anxious Results Lab / Micro Data 11/10/23 20:50 11/10/23 20:50 Labs: Laboratory Results - last 24 hr 11/10/23 20:50: WBC 18.8 H, RBC 5.32, Hgb 15.8, Hct 46.6, MCV 87.6, MCH 29.7, MCHC 33.9, RDW Std Deviation 41.4, RDW Coeff of Jackie 13.1, Plt Count 151, MPV 12.7 H, Immature Gran % (Auto) 1.500 H, Neut % (Auto) 86.4 H, Lymph % (Auto) 3.6 L, [place] % (Auto) 7.4, Eos % (Auto) 0.7, Baso % (Auto) 0.4, Absolute Neuts (auto) 16.2 H, Absolute Lymphs (auto) 0.67 L, Nucleated RBC % 0, Differential Comment SCANNED, PT 16.8 H, INR 1.4, APTT 35.0, Sodium 134 L, Potassium 3.9, Chloride 102, Carbon Dioxide 21.0, Anion Gap 11, BUN 27 H, Creatinine 1.27, Estim Creat Clear Calc 57.64, Est GFR (MDRD) Af Amer 72, Est GFR (MDRD) Non-Af 60, BUN/Creatinine Ratio 21.3 H, Glucose 217 H, Calcium 9.1, Total Bilirubin 2.00 H, Direct Bilirubin 0.78 H, AST 50 H, ALT 34, Alkaline Phosphatase 169 H, Total Creatine Kinase 1743 H, Troponin I High Sens 93 H, B-Natriuretic Peptide 226.5 H, Total Protein 7.1, Albumin 3.9, Globulin 3.2, Lipase < 10 L 11/10/23 22:20: Lactic Acid 3.9 H*, Urine Color Janene, Urine Clarity Sl. Cloudy, Urine pH 6.0, Ur Specific [place] 1.020, Urine Protein 30 H, Urine Glucose (UA) 50 H, Urine Ketones 15 H, Urine Occult Blood 250 H, Urine Nitrite Negative, Urine Bilirubin Negative, Urine Urobilinogen 4 H, Ur Leukocyte Esterase 25 H, Urine RBC 5-10 SEEN, Urine WBC 5-10 SEEN, Ur Squamous Epith Cells 0 SEEN, Ur Transition Epith Cell 0-5 SEEN, Amorphous Sediment 1+, Urine Bacteria 1+, Urine Mucus 0 SEEN 11/11/23 00:40: Troponin I High Sens 95 H Micro: Microbiology 11/10/23 22:20 Mucosa - Nasopharyngeal SARS-CoV-2, Influenza & RSV (PCR) - Final Imaging Radiology Impression Brain CT 11/10/23 22:05 IMPRESSION: No acute intracranial findings. Electronically Signed: Michael Pinon MD at 23:57 EDT , Chest X-Ray 11/10/23 22:25 IMPRESSION: No radiographic evidence of acute cardiopulmonary disease. Cardiomegaly versus pericardial effusion. Probable chronic left posterior rib trauma with deformity. Electronically Signed: Michael Pinon MD at 23:11 EDT , Chest CTA 11/10/23 23:03 IMPRESSION: 1. Dense right lower lobe consolidation superimposed on mild centrilobular emphysematous changes. Findings consistent with pneumonia. 2. No filling defects identified in the pulmonary arteries to suggest pulmonary embolism, but small segmental pulmonary emboli are not excluded due to artifact caused by patient respiratory motion. 3. The presence of pulmonary emphysema on CT is an independent risk factor for lung cancer, recommend consideration for low-dose CT (LDCT) lung cancer screening in the future. This current chest CT serves as a baseline, a follow-up LDCT screening examination would be recommended in 12 months. Electronically Signed: Salvador Ch MD at 1:30 EDT , Assessment & Plan Assessment/Plan (1) Hyperlipidemia: (2) Tobacco abuse: (3) Anxiety: (4) Pneumonia: PLAN: Plan 1 community-acquired pneumonia with impending respiratory failure?admit patient to progressive care unit continue BiPAP initiated in the emergency room along with oxygen support. Will continue Rocephin and azithromycin and repeat CBC BMP in the morning. Will add DuoNeb breathing treatments every 4 hours and IV Solu-Medrol 40 mg every 8 hours. Will give IV normal saline at a rate of 125 cc/h 2. Hyperlipidemia?continue statin 3. Tobacco abuse?encourage cessation 4. Anxiety?will monitor when patient is more alert 5. DVT prophylaxis?low molecular weight heparin Charges/Coding Visit Charges Inpatient E&M: 69528 Init Hosp L2
[2023-11-11] MEDS: LORazepam 2 MG/ML Syringe 0.5 MG IV (01:52)
[2023-11-11 02:11] LABS: Allen Test Positive; Base Excess -4 mmol/L (-2 to +2); Bicarbonate 19.5 mmol/L (22-26); Blood Gas Specimen Type ART; Mode Not entered; O2 Delivery Device BiPAP; PO2 119 mmHG (75-100); SITE L Radial; SO2 99 % (95-99); Total Carbon Dioxide 20 mmol/L; pCO2 27.8 mmHg (35-45); pH 7.45 (7.35-7.45)
[2023-11-11 02:25] LABS: Reflex Lactate? Y
--- NOTE | 2023-11-11 02:29 | RAD_ITS ---
EXAM: XR CHEST, 1 VIEW CLINICAL INDICATION: intubation TECHNIQUE: Frontal view of the chest. COMPARISON: Single view chest 11/10/2023 FINDINGS: LUNGS AND PLEURAL SPACES: Right lower lobe consolidation. No pneumothorax. No effusion. HEART: Unremarkable. Cardiac silhouette not enlarged. MEDIASTINUM: Central airways and mediastinal contour are unremarkable. BONES/JOINTS: Unremarkable. No acute fracture. SOFT TISSUES: Unremarkable. TUBES, LINES AND DEVICES: Endotracheal tube with tip 3.7 cm above the marian. Enteric tube extending below the level of the GE junction into the stomach. RAD/Chest 1 View (Portable) IMPRESSION: 1. Endotracheal tube with tip 3.7 cm above the marian. 2. Right lower lobe consolidation. Findings likely indicate pneumonia. Electronically Signed: Salvador Ch MD at 4:19 EDT ,
[2023-11-11] MEDS: Propofol 10MG/Ml 1,000 MG/100 ML Bottle 5.1 MG CONT INF (03:03)
[2023-11-11] MEDS: Etomidate 20 MG/10 ML Vial IV (03:05)
[2023-11-11] MEDS: Rocuronium Bromide 50 MG/5 ML Vial 75 MG IV (03:05)
[2023-11-11 04:34] LABS: Lactic Acid 2.6 mmol/L (0.4-1.9)
--- NOTE | 2023-11-11 05:07 | NURSING ---
Bilateral soft wrist restraints applied upon arrival from ED to maintain line/tube integrity.
[2023-11-11 05:10] LABS: Hematocrit 46.3 % (40-54); Hemoglobin 15.5 g/dL (13.0-16.5); Mean Corp Hgb Conc 33.5 g/dL (32-36); Mean Corpuscular Hgb 30.1 pg (27.0-32.0); Mean Corpuscular Volume 89.9 fL (80-94); Mean Platelet Vol. 10.9 fl (6.2-12.0); POSITIVE DIFFERENTIAL YES; POSITIVE MORPHOLOGY YES; Platelet Count 126 K/mm3 (150-450); RBC Distribution Width CV 13.2 % (11.6-14.6); RBC Distribution Width SD 43.3 fl (35.1-43.9); Red Blood Count 5.15 M/mm3 (4.6-6.2); White Blood Count 14.2 K/mm3 (4.4-11.0)
[2023-11-11 05:15] LABS: Base Excess -6 mmol/L (-2 to +2); Bicarbonate 20.6 mmol/L (22-26); Blood Gas Specimen Type ART; Mode AC; O2 Delivery Device Adult Vent; PEEP 5; PO2 128 mmHG (75-100); RR 14; SITE L Radial; SO2 99 % (95-99); Total Carbon Dioxide 22 mmol/L; pCO2 43.9 mmHg (35-45); pH 7.28 (7.35-7.45)
[2023-11-11] MEDS: 0.9% Saline Lock 10 ML Syringe IV ×5 (05:26→22:44)
[2023-11-11] MEDS: fentaNYL drip 100 ML 2.5 MCG CONT INF (05:26)
[2023-11-11] MEDS: TITRATION PARAMETER CHANGE 1 EACH IV (05:26)
[2023-11-11 05:47] LABS: CPK Total, Creatine Kinase 4138 U/L (39-308); Triglycerides 89 mg/dL
[2023-11-11 05:50] LABS: Differential Indicated MANUAL DIFF
[2023-11-11 05:57] LABS: Anion Gap 9 (5-15); BUN 31 mg/dL (7-18); BUN/Creat Ratio 24.8 RATIO (10-20); Calcium,Total 8.2 mg/dL (8.5-10.1); Chloride 104 mmol/L (98-107); Creatinine, Serum 1.25 mg/dL (0.70-1.30); EST Glomerular Filtration Rate 61 mL/min (>60); Est Glom Filt Rate - Afr Amer 73 mL/min (>60); Estimated Creatinine Clearance 56.78 ml/min; Glucose 208 mg/dL (74-106); Sodium Level 135 mmol/L (136-145)
[2023-11-11 06:28] LABS: Lymphocyte 9 % (19-41); Monocyte 16 % (0-10); Neutrophil-Band 8 % (0-5); Neutrophil-Segmented 67 % (47-70); Total Cells Counted 100 (MANUAL DIFF)
[2023-11-11 06:32] LABS: Platelet Estimate SLT (ADEQ); Platelet Morphology GIAN
[2023-11-11 06:33] LABS: Red Cell Morphology NORM C+C NORMAL (NORM C&C)
[2023-11-11 06:35] LABS: Absolute Lymphocyte Count 1.27 X10^3/uL (0.83-4.51); Absolute Neutrophil Count 10.9 X10^3/uL (2.0-7.7)
--- NOTE | 2023-11-11 07:13 | CON.PCM.CC_ITS ---
Assessment & Plan Assessment/Plan (1) Acute hypoxemic respiratory failure: PLAN: Plan RECOMMENDATIONS: 1. Continue assist-control mode mechanical ventilation. Wean FiO2 and PEEP to maintain saturations at or above 90%. 2. Continue empiric antimicrobials, pending culture results. 3. Start scheduled bronchodilators and IV steroids. 4. Continue gentle IV fluid hydration. Continue to trend CK levels. 5. Okay to initiate tube feeding today from my perspective. 6. Initiate appropriate ICU prophylaxis. IMPRESSIONS: 1. Acute hypoxemic respiratory failure The patient presented to the hospital after falling in his home environment in the setting of complaints of shortness of breath and cough. Ultimately, the patient decompensated from a respiratory perspective and was intubated in the emergency department. He has radiographic evidence of a dense right lower lobe consolidation, concerning for pneumonia. The patient has been initiated on antimicrobial therapy. In light of his reported history of COPD, we will plan to start him on scheduled bronchodilators and IV steroids as well. The patient's FiO2 and PEEP will be weaned as tolerated to maintain saturations at or above 90%. Plan for daily paired spontaneous awakening and breathing trials. 2. Sepsis The patient presented to the hospital with sepsis due to probable pneumonia with acute sepsis related organ dysfunction as evidenced by altered mental status, lactic acidemia and respiratory failure requiring invasive mechanical ventilatory support. The patient has remained hemodynamically stable. Plan to continue empiric broad-spectrum antimicrobials, pending infectious workup. 3. Chronic tobacco dependency/history of COPD of unknown severity/anxiety/depression/hyperlipidemia Complicates care, management, recovery and prognosis. Continue supportive measures as noted above. Okay to initiate tube feeding today for nutritional support. TIME: 34 minutes of critical care time, independent of procedures, was spent addressing the patient's acute hypoxemic respiratory failure, sepsis, review of all data and collaboration with the care team. HPI Consult Data Date of Consult: 11/11/23 HPI Narrative Reason for Consultation: Acute respiratory failure HPI Narrative: The patient is a 68-year-old male, with a history as outlined below, who presented to the emergency department via EMS on November 09 after he was found by his significant other down on the floor. According to his significant other, Malissa, the patient was rushing to the bathroom and apparently tripped and fell on the floor. He then laid there for several hours because he was too weak to get up. According to his significant other, the patient is a nondrinker. However, he is a very heavy smoker with a questionable history of COPD, which is being managed by his PCP. The patient had apparently been complaining of cough and shortness of breath over the last several days. On presentation to the emergency department, the patient was febrile, tachycardic and tachypneic. Initial laboratory evaluation revealed an elevated white blood cell count to 18,000. Chemistry profile was notable for a lactate of 3.9. Bilirubin was increased to 2.0. Total CK was elevated at 4138. Troponin was mildly elevated at 93 with a BNP of 226. Urinalysis was negative for nitrites, positive for leukocyte esterase and 1+ urine bacteria. COVID, influenza and RSV PCR's were negative. Blood, urine and sputum cultures were collected. CTA chest showed no evidence for pulmonary embolism. However, there was a dense right lower lobe consolidation present. CT head was unremarkable. Although the patient was initially placed on BiPAP therapy, he continued to decompensate from a respiratory perspective and was ultimately intubated in the emergency department. He was placed on antimicrobial therapy and admitted to the medical intensive care unit for further management. [facility] Home Medications ?Medication ?Instructions ?Recorded ?Last Taken ?Type Clonazepam 0.5 mg PO TID PRN Anxiety 09/09/19 Unknown History bupropion HCl 150 mg 24 hr tablet, 150 mg PO BID depression 09/09/19 Unknown History extended release risperidone 2 mg tablet 2 mg PO BID depression/anxiety 09/09/19 Unknown History simvastatin 40 mg tablet 40 mg PO DAILY cholesterol 09/09/19 Unknown History trazodone 50 mg tablet 50 mg PO QHS sleep 09/09/19 Unknown History albuterol sulfate 90 mcg/actuation inhalation sob 11/11/23 Unknown History aerosol inhaler fluticasone fur. 100 mcg-umeclid 1 ea inhalation DAILY sob 11/11/23 Unknown History 62.5 mcg-vilant 25 mcg inhalat.powder (Trelegy Ellipta) naproxen 500 mg tablet 500 mg PO BID pain 11/11/23 Unknown History Allergy/AdvReac Type Severity Reaction Status Date / Time No Known Allergies Allergy Verified 11/10/23 21:02 Social History Smoking Status: Current every day smoker tobacco type: cigarettes ROS Review of Systems ROS Unobtainable: due to endotracheal tube Physical Exam Const Constitutional Narrative: Intubated, sedated and mechanically ventilated. A bit unkempt in appearance. HEENT normocephalic and head/scalp atraumatic Mouth: endotracheal tube in place and OG tube in place Eyes PERRL and EOMs intact bilaterally Neck supple General: trachea midline Chest inspection of chest normal Resp Auscultation: diminished lung sounds; Negative for rales, rhonchi or wheezes Cardio regular rate and regular rhythm GI normal to inspection, nondistended, normoactive bowel sounds Extremity no clubbing, cyanosis or edema Neuro Sensorium / Orientation: sedated on vent Lab / Micro Data 11/11/23 04:59 11/11/23 04:40 Labs: Laboratory Results - last 24 hr 11/10/23 20:50: WBC 18.8 H, RBC 5.32, Hgb 15.8, Hct 46.6, MCV 87.6, MCH 29.7, MCHC 33.9, RDW Std Deviation 41.4, RDW Coeff of Jackie 13.1, Plt Count 151, MPV 12.7 H, Immature Gran % (Auto) 1.500 H, Neut % (Auto) 86.4 H, Lymph % (Auto) 3.6 L, [place] % (Auto) 7.4, Eos % (Auto) 0.7, Baso % (Auto) 0.4, Absolute Neuts (auto) 16.2 H, Absolute Lymphs (auto) 0.67 L, Nucleated RBC % 0, Differential Comment SCANNED, PT 16.8 H, INR 1.4, APTT 35.0, Sodium 134 L, Potassium 3.9, Chloride 102, Carbon Dioxide 21.0, Anion Gap 11, BUN 27 H, Creatinine 1.27, Estim Creat Clear Calc 57.64, Est GFR (MDRD) Af Amer 72, Est GFR (MDRD) Non-Af 60, B UN/Creatinine Ratio 21.3 H, Glucose 217 H, Calcium 9.1, Total Bilirubin 2.00 H, Direct Bilirubin 0.78 H, AST 50 H, ALT 34, Alkaline Phosphatase 169 H, Total Creatine Kinase 1743 H, Troponin I High Sens 93 H, B-Natriuretic Peptide 226.5 H , Total Protein 7.1, Albumin 3.9, Globulin 3.2, Lipase < 10 L 11/10/23 22:20: Lactic Acid 3.9 H*, Urine Color Janene, Urine Clarity Sl. Cloudy, Urine pH 6.0, Ur Specific [place] 1.020, Urine Protein 30 H, Urine Glucose (UA) 50 H, Urine Ketones 15 H, Urine Occult Blood 250 H, Urine Nitrite Negative, Urine Bilirubin Negative, Urine Urobilinogen 4 H, Ur Leukocyte Esterase 25 H, Urine RBC 5-10 SEEN, Urine WBC 5-10 SEEN, Ur Squamous Epith Cells 0 SEEN, Ur Transition Epith Cell 0-5 SEEN, Amorphous Sediment 1+, Urine Bacteria 1+, Urine Mucus 0 SEEN 11/11/23 00:40: Total Creatine Kinase 4138 H, Troponin I High Sens 95 H, Triglycerides 89 11/11/23 03:27: Lactic Acid 2.6 H* 11/11/23 04:40: WBC Cancelled, Corrected WBC Cancelled, RBC Cancelled, Hgb Cancelled, Hct Cancelled, MCV Cancelled, MCH Cancelled, MCHC Cancelled, RDW Std Deviation Cancelled, RDW Coeff of Jackie Cancelled, Plt Count Cancelled, MPV Cancelled, Immature Gran % (Auto) Cancelled, Neut % (Auto) Cancelled, Lymph % (Auto) Cancelled, [place] % (Auto) Cancelled, Eos % (Auto) Cancelled, Baso % (Auto) Cancelled, Absolute Neuts (auto) Cancelled, Absolute Lymphs (auto) Cancelled, Total Counted Cancelled, Neutrophils % (Manual) Cancelled, Band Neutrophils % Cancelled, Lymphocytes % (Manual) Cancelled, Monocytes % (Manual) Cancelled, Eosinophils % (Manual) Cancelled, Basophils % (Manual) Cancelled, Metamyelocytes % Cancelled, Myelocytes % Cancelled, Promyelocytes % Cancelled, Blast Cells % Cancelled, Plasma Cell % (Manual) Cancelled, Other Cells % Cancelled, Nucleated RBC % Cancelled, Nucleated RBCs/100 WBC Cancelled, Differential Comment Cancelled, Diff Path Review Cancelled, Hypersegmented Neuts Cancelled, Atypical Lymphocytes Cancelled, Reactive Lymphocytes Cancelled, Smudge Cells Cancelled, Toxic Granulation Cancelled, Toxic Vacuolation Cancelled, Dohle Bodies Cancelled, Mike Rods Cancelled, Platelet Estimate Cancelled, Plt Morphology Comment Cancelled, RBC Morphology Cancelled 11/11/23 04:40: RBC Morphology Cancelled, Polychromasia Cancelled, Hypochromasia Cancelled, Basophilic Stippling Cancelled, Anisocytosis Cancelled, Microcytosis Cancelled, Macrocytosis Cancelled, Spherocytes Cancelled, Sickle Cells Cancelled, Target Cells Cancelled, Tear Drop Cells Cancelled, Ovalocytes Cancelled, Stomatocytes Cancelled, [place] Bodies Cancelled, Rula Cells Cancelled, Bite Cells Cancelled, Crenated Cell Cancelled, Acanthocytes (Spur) Cancelled, Rouleaux Cancelled, Schistocytes Cancelled, Sodium 135 L, Potassium 4.0, Chloride 104, Carbon Dioxide 22.0, Anion Gap 9, BUN 31 H, Creatinine 1.25, Estim Creat Clear Calc 56.78, Est GFR (MDRD) Af Amer 73, Est GFR (MDRD) Non-Af 61, BUN/Creatinine Ratio 24.8 H, Glucose 208 H, Calcium 8.2 L 11/11/23 04:59: WBC 14.2 H, RBC 5.15, Hgb 15.5, Hct 46.3, MCV 89.9, MCH 30.1, MCHC 33.5, RDW Std Deviation 43.3, RDW Coeff of Jackie 13.2, Plt Count 126 L, MPV 10.9, Neut % (Auto) Not Reportable, Absolute Neuts (auto) 10.9 H, Absolute Lymphs (auto) 1.27, Total Counted 100, Neutrophils % (Manual) 67, Band Neutrophils % 8 H, Lymphocytes % (Manual) 9 L, Monocytes % (Manual) 16 H, Diff Path Review June ariana, Platelet Estimate SLT, Plt Morphology Comment DARLENE, RBC Morphology NORM C+C Micro: Microbiology 11/10/23 22:20 Mucosa - Nasopharyngeal SARS-CoV-2, Influenza & RSV (PCR) - Final ABG Data ABG results: ABG 11/11/23 11/11/23 02:09 05:10 Specimen Type ART ART Sample Site L Radial L Radial pH 7.45 7.28 L Bicarbonate Actual 19.5 L 20.6 L Total CO2 20 22 Base Excess -4 L -6 L O2 Saturation 99 99 O2 % 50.0 60.0 ABG pCO2 27.8 L 43.9 ABG pO2 119 H 128 H Danis Test Positive N/A Respiration Rate 14 O2 Delivery Device BiPAP Adult Vent Vent Mode Not entered AC Tidal Volume 450.0 POC PEEP 5 Clinical Comments Imaging Radiology Impression Brain CT 11/10/23 22:05 IMPRESSION: No acute intracranial findings. Electronically Signed: Michael Pinon MD at 23:57 EDT , Chest X-Ray 11/10/23 22:25 IMPRESSION: No radiographic evidence of acute cardiopulmonary disease. Cardiomegaly versus pericardial effusion. Probable chronic left posterior rib trauma with deformity. Electronically Signed: Michael Pinon MD at 23:11 EDT , Chest CTA 11/10/23 23:03 IMPRESSION: 1. Dense right lower lobe consolidation superimposed on mild centrilobular emphysematous changes. Findings consistent with pneumonia. 2. No filling defects identified in the pulmonary arteries to suggest pulmonary embolism, but small segmental pulmonary emboli are not excluded due to artifact caused by patient respiratory motion. 3. The presence of pulmonary emphysema on CT is an independent risk factor for lung cancer, recommend consideration for low-dose CT (LDCT) lung cancer screening in the future. This current chest CT serves as a baseline, a follow-up LDCT screening examination would be recommended in 12 months. Electronically Signed: Salvador Ch MD at 1:30 EDT , Chest X-Ray 11/11/23 02:29 IMPRESSION: 1. Endotracheal tube with tip 3.7 cm above the marian. 2. Right lower lobe consolidation. Findings likely indicate pneumonia. Electronically Signed: Salvador Ch MD at 4:19 EDT , Charges/Coding Procedures Hospitalists Procedures: 76169 Critical Care 1st Hr
[2023-11-11] MEDS: Piperacil/Tazobactam 3.375 GM in 0.9% Normal Saline (50mL MB+) 50 ML IV ×3 (07:57→22:44)
[2023-11-11] MEDS: 0.9% Normal Saline (1000mL) 1,000 ML 125 ML IV ×2 (08:39→16:42)
[2023-11-11] MEDS: CHLORHEXIDINE GLUC 2% CLOTH 1 EACH TOWELETTE TOPICAL (08:39)
[2023-11-11] MEDS: Vancomycin HCl 2,000 MG in 0.9% Normal Saline (500mL Bag) 500 ML 250 MG IV (08:39)
[2023-11-11] MEDS: Chlorhexidine 15 ML PO ×2 (08:45→20:21)
--- NOTE | 2023-11-11 09:22 | PCM.RX.CS ---
Consult Antibiotic Management Pharmacy has been consulted to manage selected antibiotic: Vancomycin Type of Intervention Type of Consult: New start Suspected Infection Suspected Infection: Pneumonia Labs Labs: Sodium 135 mmol/L (136-145) L 11/11/23 04:40 Potassium 4.0 mmol/L (3.5-5.1) 11/11/23 04:40 Chloride 104 mmol/L (98-107) 11/11/23 04:40 Carbon Dioxide 22.0 mmol/L (21.0-32.0) 11/11/23 04:40 Anion Gap 9 (5-15) 11/11/23 04:40 BUN 31 mg/dL (7-18) H 11/11/23 04:40 Creatinine 1.25 mg/dL (0.70-1.30) 11/11/23 04:40 Est GFR (MDRD) Af Amer 73 mL/min (>60) 11/11/23 04:40 Est GFR (MDRD) Non-Af 61 mL/min (>60) 11/11/23 04:40 BUN/Creatinine Ratio 24.8 RATIO (10-20) H 11/11/23 04:40 Glucose 208 mg/dL (74-106) H 11/11/23 04:40 Microbiology Microbiology: Microbiology 11/10/23 22:20 Mucosa - Nasopharyngeal SARS-CoV-2, Influenza & RSV (PCR) - Final Goal Trough Goal Trough: 15-20 mcg/mL Pharmacy Plan for Drug Dosing Pharmacy Plan for Drug Dosing: NEW START IV VANCOMYCIN Consulting Physician: Dr. Barrow Indication: respiratory failure Goal Trough: 15-20 SrCr: 1.25 CrCl: 57 ml/min Comments: Patient had 2000mg IV x1 loading dose ordered and administered 11/10 @0839 Vancomycin Dose: 750mg IV Q12hr to start 11/11/23 @2100 Pending Level:11/12/23 @2029, prior to 4th total dose of vancomycin per protocol Pharmacy Service will continue to monitor and adjust dosing as required.
[2023-11-11] MEDS: Enoxaparin 40 MG/0.4 ML Syringe SC (10:30)
--- NOTE | 2023-11-11 10:33 | CASEMGMT ---
RN CM Assessment Face to Face with patient for initial transition planning/care coordination assessment. Pt is currently on the [facility] vent and is unable to answer this RN CM questions for assessment. TC to the pt SO (Malissa) who states that she is willing to answer this RN CM questions for assessment. Care providers, pharmacy, and demographics verified. Admitting dx: PNA, RF LACE Strata: 1 PCP: [facility] Specialists: Louann Cortez (Psychiatry) Preferred Pharmacy: [facility] Insurance: [email or web address] Prescription Benefit: Yes LNOK: Malissa Mora (SO), Anabell Brandon ([place]), Davin Brandon ([place]IGE) Living Arrangements: Pt lives alone in a ground level apartment with a flat entrance. Pt SO lives in a separate apartment in the same complex ADLs/IADLs: Pt SO states that the pt is Ind at baseline Transportation: Pt, pt SO DME: denies all DME. CM to follow HHC/SNF: denies history. Pt has a history at for OP Tx and also the [facility] Smoking Hx: Pt SO states that the pt smokes 1.5 - 2 packs of cigarettes per day Plan: TBD. Today is VD#1. CM and SW to follow pt progression in the hospital. Caitlin Aponte RN, CM
[2023-11-11] MEDS: Norepinephrine 8 MG in 0.9% Normal Saline (250mL Bag) 242 ML 9.4 MG CONT INF (10:35)
[2023-11-11] MEDS: Pantoprazole Sodium 40 MG in 0.9% Normal Saline (100mL MB+) 100 ML 330 MG IV (11:34)
[2023-11-11] MEDS: Ipratropium/Albuterol Sulfate 3 ML AMPUL.NEB INHALATION ×2 (12:18→19:11)
[2023-11-11] MEDS: Acetaminophen 650 MG/20 ML UDC GT (12:23)
--- NOTE | 2023-11-11 13:07 | PCM.OP.PRO ---
Procedure Report Date of Procedure: 11/11/23 Central Venous Catheter Indication: Hypotension Consent was obtained from: Procedure was done emergently A time-out was completed verifying correct patient, procedure, site, positioning, and special equipment if applicable. The patient was placed in a dependent position appropriate for central line placement based on the vein to be cannulated. The patient's right neck was prepped and draped in a sterile fashion. 1% lidocaine was used to anesthetize the surrounding skin area. A triple-lumen catheter was introduced into the right IJ using the Seldinger technique and under ultrasound guidance. The catheter was threaded smoothly over the guidewire and appropriate blood return was obtained. Each lumen of the catheter was evacuated of air and flushed with sterile saline. The catheter was then sutured in place to the skin and a sterile dressing applied. Chest x-ray to confirm appropriate positioning is pending. ULTRASOUND GUIDANCE STATEMENT (Vascular Access): I performed ultrasound image acquisition and interpretation for needle placement during the procedure. The vessel was identified and found to be free of thrombosis by compression technique. A safe point of entry was marked at the skin in an angle for axis was determined. The needle was guided by obtaining free-flowing fluid and by real-time visualization. Procedures Hospitalists Procedures: 12177 Insert Non-tunnel CV Cath
--- NOTE | 2023-11-11 13:10 | RAD_ITS ---
STUDY: X-RAY CHEST REASON FOR EXAM: Male, 68 years old. Central line placement TECHNIQUE: Single AP portable view of the chest. COMPARISON: Comparison is made with prior study done earlier in the day at 2:54 AM. FINDINGS: An endotracheal tube is in situ with the tip at 2.7 cm proximal to the marian. An oral gastric tube is seen with the tip at the gastroesophageal junction. A right-sided central line catheter has been placed with the tip at the junction of the superior vena cava and right atrium. EKG electrodes are seen. Stable mild increased markings at the lung bases more prominent at the right lung base. There is no demonstrated pleural abnormality. Normal size heart. Normal mediastinum and pia. Normal visualized pulmonary arteries. Normal visualized aortic arch and descending thoracic aorta. Normal visualized thoracic spine. Healed left rib fractures. There is no demonstrated abnormality of the visualized soft tissue structures of the upper abdomen. RAD/CXR for Line Placement IMPRESSION: Essentially stable examination. The support tubes are in good position. Electronically Signed: Praveen George MD at 13:36 EDT ,
[2023-11-11] MEDS: dexMEDEtomidine 400 MCG in 0.9% Normal Saline (100mL Bag) 96 ML 10.3 MCG CONT INF (13:40)
[2023-11-11] MEDS: fentaNYL drip 100 ML 10 MCG CONT INF (15:05)
[2023-11-11 15:06] LABS: Pathologist Review Reviewed
--- NOTE | 2023-11-11 15:21 | EKG12_ITS ---
Test Reason : Blood Pressure : / mmHG Vent. Rate : 087 BPM Atrial Rate : 087 BPM P-R Int : 150 ms QRS Dur : 092 ms QT Int : 398 ms P-R-T Axes : 087 020 037 degrees QTc Int : 478 ms Normal sinus rhythm Possible Acute pericarditis Abnormal ECG When compared with ECG of 10-NOV-2023 22:23, ST more elevated in Lateral leads Confirmed by CARLO ETIENNE, KOREY ([id number]), photographic editor JOYCE MCKOY ([id number]) on 11/13/2023 1:12:11 PM Referred By: Confirmed By:KOREY MATOS MD
--- NOTE | 2023-11-11 15:35 | PCM.HOSP.N ---
Hospitalist Note Patient was seen and examined today, I talked with pulmonary medicine about his care, patient remains sedated and on the ventilator at this time, patient was hypotensive today and a central line had to be placed emergently, it appears that the patient is septic at this time from right sided pneumonia. Patient is currently on Zosyn and vancomycin. Patient is currently requiring pressor support. Prognosis remains guarded at this time.
[2023-11-11] MEDS: Vasopressin 20 UNITS in 0.9% Normal Saline (50mL Bag) 24 ML 3 UNITS CONT INF ×2 (15:44→18:36)
[2023-11-11] MEDS: Vital AF 1.2 Cal Liquid 1,000 ML 75 ML GT (15:48)
[2023-11-11] MEDS: Norepinephrine 8 MG in 0.9% Normal Saline (250mL Bag) 242 ML 46.9 MG CONT INF (18:35)
[2023-11-11] MEDS: Vancomycin HCl 750 MG in 0.9% Normal Saline (250mL Bag) 250 ML 250 MG IV (20:20)
[2023-11-11] MEDS: Atorvastatin Calcium 20 MG Tablet PO (20:21)
[2023-11-11] MEDS: Nystatin Powder 15gm Bottle 1 APPLIC TOPICAL (20:21)
--- NOTE | 2023-11-11 22:22 | NURSING ---
Spoke with cardiology regarding worsening ST elevation on EKG. Sent pictures of admission EKG, this afternoon's, and most current one. Dr. Posada recommended obtaining a troponin.
--- NOTE | 2023-11-11 22:30 | PCM.HOSP.N ---
Hospitalist Note Nursing staff reporting still ongoing ST elevations which had been investigated earlier in the day as well. Discussed with nursing staff who also showed EKG to cardiology with consultation placed to be cautious. Troponin earlier 11/10/23 troponin 93 and repeat 11/11/23 troponin 95 with repeat pending now per cardiology also request. ECHO requested. ASA ordered until further evaluation obtained.
--- NOTE | 2023-11-11 22:31 | ECHOD_ITS ---
Reason For Study: Arrhythmia Procedure This was a 2D Doppler, Color Flow transthoracic echocardiogram. The study was technically difficult. Exam performed portable in ICU/CCU. Left Ventricle Normal LV size. The estimated ejection fraction is 60 %. No evidence for diastolic dysfunction. No regional wall motion abnormalities noted. Right Ventricle Normal RV size. Normal systolic function. Atria The left and right atria are normal. No doppler evidence for ASD. Mitral Valve There is no mitral valve stenosis. No mitral valve insufficiency. Tricuspid Valve There is no tricuspid stenosis. Trivial tricuspid valve insufficiency. Pulmonary artery systolic pressure is 35 mmHg. Aortic Valve Trisinus/trileaflet aortic valve. There is no aortic stenosis. No aortic valve insufficiency. Pulmonic Valve There is no pulmonic valvular stenosis. No pulmonic valve insufficiency. Great Vessels Normal aortic root. Pericardium/Pleural No pericardial effusion. MMode/2D Measurements & Calculations LVIDd: 3.5 cm IVSd: 1.6 cm Ao root diam: 3.6 cm LVIDs: 2.5 cm LVPWd: 1.1 cm RVDd: 3.5 cm FS: 27.1 % LAV(MOD-bp): 29.3 ml LVAd ap4: 25.2 cm2 LVAd ap2: 23.2 cm2 LAV(MOD-bp) Indexed: 14.4 ml/m2 LVLd ap4: 8.2 cm LVLd ap2: 8.0 cm LAV(MOD-sp2): 26.8 ml EDV(MOD-sp4): 64.8 ml EDV(MOD-sp2): 56.7 ml LAV(MOD-sp4): 32.5 ml EDV(sp4-el): 65.9 ml EDV(sp2-el): 57.4 ml LVAs ap4: 13.1 cm2 LVAs ap2: 12.0 cm2 LVLs ap4: 5.9 cm LVLs ap2: 6.4 cm ESV(MOD-sp4): 24.2 ml ESV(MOD-sp2): 18.5 ml ESV(sp4-el): 24.5 ml ESV(sp2-el): 19.0 ml EF(MOD-sp4): 62.7 % EF(MOD-sp2): 67.3 % EF(sp4-el): 62.8 % SV(MOD-sp4): 40.6 ml SV(MOD-sp2): 38.2 ml SV(sp4-el): 41.4 ml LA dimension(2D): 3.5 cm LA A4 area: 14.4 cm2 RA A4 area: 11.1 cm2 TAPSE: 1.4 cm Time Measurements MV dec time: 0.26 sec Doppler Measurements & Calculations MV E max michael: 85.3 cm/sec Lat Peak E' Michael: 8.7 cm/sec Med Peak E' Michael: 9.1 cm/sec MV A max michael: 87.0 cm/sec E/E' lat: 9.8 E/E' med: 9.4 MV E/A: 0.98 MV dec slope: 333.4 cm/sec2 Ao V2 max: 164.9 cm/sec LV V1 max: 130.4 cm/sec Ao max P.9 mmHg LV V1 max P.8 mmHg PA V2 max: 102.1 cm/sec TR max michael: 279.4 cm/sec TR max P.2 mmHg ECHO/Echo Complete Interpretation Summary The estimated ejection fraction is 60 %. No evidence for diastolic dysfunction. Ordering Physician: Yamilka Lozada Referring Physician: Sam Brower Chi Performed By: Ophelia Lucio RDCS
--- NOTE | 2023-11-11 22:34 | EKG12_ITS ---
Test Reason : abnormal ekg Blood Pressure : / mmHG Vent. Rate : 102 BPM Atrial Rate : 102 BPM P-R Int : 140 ms QRS Dur : 088 ms QT Int : 374 ms P-R-T Axes : 058 020 046 degrees QTc Int : 487 ms Sinus tachycardia Acute pericarditis Otherwise normal ECG No previous ECGs available Confirmed by CARLO ETIENNE, KOREY ([id number]), department editor JOYCE MCKOY ([id number]) on 11/13/2023 1:12:52 PM Referred By: Rachel Confirmed By:KOREY MATOS MD
[2023-11-11 22:58] LABS: Magnesium 2.2 mg/dL (1.6-2.6); Troponin-I HS 29 pg/mL (3.0-78.0)
[2023-11-11] MEDS: Aspirin 300 MG Suppository RC (23:42)
[2023-11-12] VITALS (56 sets, daily range): BP systolic 73–133; BP diastolic 48–80; PULSE 81–106; RESP 14–20; TEMP 36.6–38.1; O2SAT 91–98; BMI 26.9
[2023-11-12] MEDS: Norepinephrine 8 MG in 0.9% Normal Saline (250mL Bag) 242 ML 46.9 MG CONT INF ×2 (00:45→06:07)
[2023-11-12] MEDS: CHLORHEXIDINE GLUC 2% CLOTH 1 EACH TOWELETTE TOPICAL (00:45)
[2023-11-12] MEDS: 0.9% Normal Saline (1000mL) 1,000 ML 125 ML IV (00:46)
[2023-11-12] MEDS: dexMEDEtomidine 400 MCG in 0.9% Normal Saline (100mL Bag) 96 ML 6.2 MCG CONT INF (00:48)
--- NOTE | 2023-11-12 00:53 | EKG12_ITS ---
Test Reason : Blood Pressure : / mmHG Vent. Rate : 088 BPM Atrial Rate : 088 BPM P-R Int : 196 ms QRS Dur : 102 ms QT Int : 398 ms P-R-T Axes : 106 023 036 degrees QTc Int : 481 ms Normal sinus rhythm Acute pericarditis Abnormal ECG Confirmed by CARLO ETIENNE, KOREY ([id number]), makeup editor JOYCE MCKOY ([id number]) on 11/13/2023 1:26:37 PM Referred By: JAIME Confirmed By:KOREY MATOS MD
[2023-11-12] MEDS: fentaNYL drip 100 ML 10 MCG CONT INF ×3 (01:16→20:44)
[2023-11-12] MEDS: Ipratropium/Albuterol Sulfate 3 ML AMPUL.NEB INHALATION ×4 (01:56→20:05)
[2023-11-12 03:43] LABS: Absolute Lymphocyte Count 0.35 X10^3/uL (0.83-4.51); Absolute Neutrophil Count 18.4 X10^3/uL (2.0-7.7); Basophil# 0.15 X10^3/uL; Basophil% 0.7 % (0-1); Eosinophil# 0.19 X10^3/uL; Eosinophils% 0.9 % (0-5); Hematocrit 42.3 % (40-54); Hemoglobin 13.7 g/dL (13.0-16.5); Lymphocyte # 0.35 X10^3/ul (0.83-4.51); Lymphocyte % 1.7 % (19-41); Mean Corp Hgb Conc 32.4 g/dL (32-36); Mean Corpuscular Hgb 29.5 pg (27.0-32.0); Mean Corpuscular Volume 91.2 fL (80-94); Mean Platelet Vol. 11.5 fl (6.2-12.0); Monocyte# 1.16 X10^3/uL; Monocyte% 5.6 % (0-10); NRBC Flagged by Analyzer 0 % (0-5); Neutrophil # 18.41 X10^3/uL (2.7-7.7); Neutrophil % 88.5 % (47-70); POSITIVE DIFFERENTIAL YES; POSITIVE MORPHOLOGY YES; Platelet Count 151 K/mm3 (150-450); RBC Distribution Width CV 14.1 % (11.6-14.6); RBC Distribution Width SD 47.6 fl (35.1-43.9); Red Blood Count 4.64 M/mm3 (4.6-6.2); White Blood Count 20.8 K/mm3 (4.4-11.0)
[2023-11-12 03:49] LABS: Erythrocyte Sedimentation Rate 18 mm/hr (0-20)
[2023-11-12 03:50] LABS: Differential Indicated SCAN CRITERIA MET
[2023-11-12 03:59] LABS: Differential Comment SCANNED
[2023-11-12 04:17] LABS: ALB/GLOB Ratio 0.8 RATIO (0.9-2.4); AST(SGOT) 71 U/L (15-37); Alanine Aminotransfer ALT/SGPT 42 U/L (16-61); Albumin, Serum 2.5 g/dL (3.2-5.0); Alkaline Phosphatase 92 U/L (45-117); Anion Gap 5 (5-15); BUN 40 mg/dL (7-18); BUN/Creat Ratio 34.8 RATIO (10-20); Calcium,Total 7.9 mg/dL (8.5-10.1); Chloride 110 mmol/L (98-107); Creatinine, Serum 1.15 mg/dL (0.70-1.30); EST Glomerular Filtration Rate 67 mL/min (>60); Est Glom Filt Rate - Afr Amer 81 mL/min (>60); Estimated Creatinine Clearance 61.71 ml/min; Glucose 218 mg/dL (74-106); Potassium 4.7 mmol/L (3.5-5.1); Protein, Total 5.5 g/dL (6.4-8.2); Sodium Level 136 mmol/L (136-145)
[2023-11-12] MEDS: Vasopressin 20 UNITS in 0.9% Normal Saline (50mL Bag) 24 ML 3 UNITS CONT INF (05:25)
[2023-11-12] MEDS: Piperacil/Tazobactam 3.375 GM in 0.9% Normal Saline (50mL MB+) 50 ML IV ×3 (05:25→22:41)
[2023-11-12] MEDS: 0.9% Saline Lock 10 ML Syringe IV ×2 (05:25→17:30)
[2023-11-12] MEDS: TITRATION PARAMETER CHANGE 1 EACH IV (06:08)
--- NOTE | 2023-11-12 07:04 | PN.CC_ITS ---
Assessment & Plan Assessment/Plan (1) Acute hypoxemic respiratory failure: PLAN: Plan RECOMMENDATIONS: 1. Continue assist-control mode mechanical ventilation. Wean FiO2 and PEEP to maintain saturations at or above 90%. 2. Continue empiric antimicrobials, pending culture results. 3. Continue vasopressor support to maintain mean arterial pressure at or above 65 mmHg. 4. Continue scheduled bronchodilators and IV steroids. 5. Stop continuous IV fluids. 6. Continue tube feeding as tolerated. 7. Continue appropriate ICU prophylaxis. IMPRESSIONS: 1. Acute hypoxemic respiratory failure The patient presented to the hospital after falling in his home environment in the setting of complaints of shortness of breath and cough. Ultimately, the patient decompensated from a respiratory perspective and was intubated in the emergency department. He has radiographic evidence of a dense right lower lobe consolidation, concerning for pneumonia. The patient has been initiated on antimicrobial therapy. In light of his reported history of COPD, we will plan to continue him on scheduled bronchodilators and IV steroids as well. The patient's FiO2 and PEEP will be weaned as tolerated to maintain saturations at or above 90%. Plan for daily paired spontaneous awakening and breathing trials, when feasible. 2. Septic shock The patient presented to the hospital with sepsis due to probable pneumonia with acute sepsis related organ dysfunction as evidenced by altered mental status, lactic acidemia and respiratory failure requiring invasive mechanical ventilatory support. The patient went on to develop fluid refractory hypotension, necessitating vasopressor support. Plan to continue the aforementioned to maintain a mean arterial pressure at or above 65 mmHg. Continue empiric antibiotics as ordered. 3. Chronic tobacco dependency/history of COPD of unknown severity/anxiety/depression/hyperlipidemia Complicates care, management, recovery and prognosis. Continue supportive measures as noted above. Continue tube feeding as tolerated for nutritional support. TIME: 32 minutes of critical care time, independent of procedures, was spent addressing the patient's acute hypoxemic respiratory failure, septic shock, review of all data and collaboration with the care team. Subjective Subjective The patient was seen and examined at the bedside this morning. Events from the last 24 hours have been reviewed. The patient did require vasopressor initiation yesterday afternoon. He is currently requiring Levophed and vasopressin to maintain hemodynamic stability. No significant endotracheal tube secretions were noted by nursing staff. The patient remains on assist-control mode of mechanical ventilation with an FiO2 requirement of 30% and PEEP of 5. White count is elevated this morning at 21,000. Chemistry profile is unremarkable. The patient is currently documented to be overall net +6.5 L for the hospitalization. The patient has been tolerant of tube feeding. Objective Data Objective Data The patient's most recent lab work, culture data and imaging studies have all been personally reviewed. Blood, urine and sputum cultures are pending. Vital Signs: Vital Signs Temp Pulse Resp BP Pulse Ox O2 Del Method O2 Flow Rate 98.4 F 95 15 101/52 L 94 Mechanical Ventilator 2 11/12/23 04:00 11/12/23 06:00 11/12/23 06:00 11/12/23 06:00 11/12/23 06:00 11/12/23 06:00 11/11/23 01:00 FiO2 30 11/12/23 06:00 Oxygen Flow Rate (L/min) 2 Oxygen Delivery Method Mechanical Ventilator Weight: 188 lb 0.869 oz Body Mass Index (BMI) 26.9 Intake & Output: Intake and Output for Last 24 Hours 11/10/23 11/11/23 11/12/23 23:59 23:59 23:59 Intake Total 100 / 100 5204.68 / 5993.38 2344.74 / 2344.74 Output Total 640 / 940 550 / 550 Balance 100 / 100 4564.68 / 5053.38 1794.74 / 1794.74 Lab / Micro Data Attestation: I reviewed the patient's lab results. 11/12/23 03:30 11/12/23 03:30 Labs: Laboratory Results - last 24 hr 11/11/23 04:59: Diff Path Review Reviewed 11/11/23 22:30: Magnesium 2.2, Troponin I High Sens 29 11/12/23 03:30: WBC 20.8 H, RBC 4.64, Hgb 13.7, Hct 42.3, MCV 91.2, MCH 29.5, MCHC 32.4, RDW Std Deviation 47.6 H, RDW Coeff of Jackie 14.1, Plt Count 151, MPV 11.5, Immature Gran % (Auto) 2.600 H, Neut % (Auto) 88.5 H, Lymph % (Auto) 1.7 L , Charlotte % (Auto) 5.6, Eos % (Auto) 0.9, Baso % (Auto) 0.7, Absolute Neuts (auto) 18.4 H, Absolute Lymphs (auto) 0.35 L, Nucleated RBC % 0, Differential Comment SCANNED, ESR 18, Sodium 136, Potassium 4.7, Chloride 110 H, Carbon Dioxide 21.0, Anion Gap 5, BUN 40 H, Creatinine 1.15, Estim Creat Clear Calc 61.71, Est GFR (MDRD) Af Amer 81, Est GFR (MDRD) Non-Af 67, BUN/Creatinine Ratio 34.8 H, G lucose 218 H, Calcium 7.9 L, Total Bilirubin 0.90, AST 71 H, ALT 42, Alkaline Phosphatase 92, C-React Prot Ext Range 351.00 H, Total Protein 5.5 L, Albumin 2.5 L, Globulin 3.0, Albumin/Globulin Ratio 0.8 L Micro: Microbiology 11/11/23 03:55 Sputum, Induced/Lukens Gram Stain - Final 11/11/23 07:45 Nasal Secretion MRSA (PCR) - Final Meth. resistant Staph. aureus 11/10/23 22:20 Mucosa - Nasopharyngeal SARS-CoV-2, Influenza & RSV (PCR) - Final Radiography Diagnostic Testing: Radiology Impression Chest X-Ray 11/11/23 13:10 IMPRESSION: Essentially stable examination. The support tubes are in good position. Electronically Signed: Praveen George MD at 13:36 EDT , Physical Exam Const Constitutional Narrative: Intubated, sedated and mechanically ventilated. HEENT normocephalic and head/scalp atraumatic Mouth: endotracheal tube in place and OG tube in place Eyes PERRL and EOMs intact bilaterally Neck supple General: trachea midline Chest inspection of chest normal Resp Auscultation: diminished lung sounds; Negative for rales, rhonchi or wheezes Cardio regular rate and regular rhythm GI normal to inspection, nondistended, normoactive bowel sounds Extremity no clubbing, cyanosis or edema Neuro Sensorium / Orientation: sedated on vent Charges/Coding Procedures Hospitalists Procedures: 92231 Critical Care 1st Hr
--- NOTE | 2023-11-12 07:20 | PCM.PN.HOSP ---
Reason for Visit Reason for Visit: Diagnoses Hyperlipidemia, unspecified (11/11/23) Anxiety disorder, unspecified (11/11/23) Pneumonia, unspecified organism (11/11/23) Acute respiratory failure with hypoxia (11/11/23) Tobacco use (11/11/23) Subjective Subjective Patient is a 68-year-old gentleman who presented with progressive shortness of breath and assessment of acute hypoxic respiratory failure was made. Patient was admitted to the progressive care unit initiated on BiPAP respiratory status worsened necessitating patient being intubated and admitted to the intensive care unit Objective Data Objective Data Vital Signs: Vital Signs Temp Pulse Resp BP Pulse Ox O2 Del Method O2 Flow Rate 98.4 F 87 14 97/59 L 95 Mechanical Ventilator 2 11/12/23 04:00 11/12/23 07:00 11/12/23 07:00 11/12/23 07:00 11/12/23 07:00 11/12/23 07:00 11/11/23 01:00 FiO2 30 11/12/23 07:00 Oxygen Flow Rate (L/min) 2 Oxygen Delivery Method Mechanical Ventilator Weight: 85.3 kg Body Mass Index (BMI) 26.9 Intake & Output: Intake and Output for Last 24 Hours 11/10/23 11/11/23 11/12/23 23:59 23:59 23:59 Intake Total 100 / 100 5204.68 / 5993.38 2402.57 / 2402.57 Output Total 640 / 940 550 / 550 Balance 100 / 100 4564.68 / 5053.38 1852.57 / 1852.57 Lab / Micro Data 11/12/23 03:30 11/12/23 03:30 Labs: Laboratory Results - last 24 hr 11/11/23 04:59: Diff Path Review Reviewed 11/11/23 22:30: Magnesium 2.2, Troponin I High Sens 29 11/12/23 03:30: WBC 20.8 H, RBC 4.64, Hgb 13.7, Hct 42.3, MCV 91.2, MCH 29.5, MCHC 32.4, RDW Std Deviation 47.6 H, RDW Coeff of Jackie 14.1, Plt Count 151, MPV 11.5, Immature Gran % (Auto) 2.600 H, Neut % (Auto) 88.5 H, Lymph % (Auto) 1.7 L, Talbot % (Auto) 5.6, Eos % (Auto) 0.9, Baso % (Auto) 0.7, Absolute Neuts (auto) 18.4 H, Absolute Lymphs (auto) 0.35 L, Nucleated RBC % 0, Differential Comment SCANNED, ESR 18, Sodium 136, Potassium 4.7, Chloride 110 H, Carbon Dioxide 21.0, Anion Gap 5, BUN 40 H, Creatinine 1.15, Estim Creat Clear Calc 61.71, Est GFR (MDRD) Af Amer 81, Est GFR (MDRD) Non-Af 67, BUN/Creatinine Ratio 34.8 H, Glucose 218 H, Calcium 7.9 L, Total Bilirubin 0.90, AST 71 H, ALT 42, Alkaline Phosphatase 92, C-React Prot Ext Range 351.00 H, Total Protein 5.5 L, Albumin 2.5 L, Globulin 3.0, Albumin/Globulin Ratio 0.8 L Micro: Microbiology 11/11/23 03:55 Sputum, Induced/Lukens Gram Stain - Final 11/11/23 07:45 Nasal Secretion MRSA (PCR) - Final Meth. resistant Staph. aureus 11/10/23 22:20 Mucosa - Nasopharyngeal SARS-CoV-2, Influenza & RSV (PCR) - Final Radiography Diagnostic Testing: Radiology Impression Chest X-Ray 11/11/23 13:10 IMPRESSION: Essentially stable examination. The support tubes are in good position. Electronically Signed: Praveen George MD at 13:36 EDT , Physical Exam Narrative GENERAL: Sedated on the vent HEENT: Atraumatic; normocephalic EYES; Anicteric, Normal Conjunctiva NECK; supple, normal thyroid, RESPIRATORY: Diminished to auscultation CARDIOVASCULAR: Regular S1 S2, GI: soft, normoactive bowel sounds, : No Renal angle tenderness; EXTREMITIES: No edema, no clubbing, MUSCULOSKELETAL: no muscle wasting NEURO: Sedated on the vent SKIN: No Rash Assessment & Plan Assessment/Plan (1) Hyperlipidemia: (2) Tobacco abuse: (3) Anxiety: (4) Pneumonia: PLAN: Plan Patient is a 68-year-old gentleman who presented with progressive shortness of breath and assessment of acute hypoxic respiratory failure was made. Patient was admitted to the progressive care unit initiated on BiPAP respiratory status worsened necessitating patient being intubated and admitted to the intensive care unit 1. Acute hypoxic respiratory failure ? Secondary to community-acquired pneumonia. Patient was placed initially on BiPAP clinical condition deteriorated resulting in patient being intubated and admitted to the intensive care unit. Vent management deferred to supervisor nut processing 2. Septic shock ? Secondary to patient pneumonia treated per protocol with IV fluid resuscitation broad-spectrum antibiotic therapy after cultures have been sent as well as 2 pressors Levophed and vasopressin 3. Dyslipidemia ? Patient is on simvastatin plan is to resume following patient's extubation 4. Tobacco dependence ? Patient had apparently been counseled on cessation prior to his intubation 5. Depression with anxiety ? Patient is on bupropion, clonazepam as well as risperidone at night and trazodone for sleep 6. DVT prophylaxis ? SC Lovenox Time spent in the patient's overall evaluation,decision-making process, review of diagnostic data, adjustment of management, discussion with other providers, nursing nursing and ancillary staff involved in patient's care documentation, 52-minutes Charges/Coding Visit Charges Inpatient E&M: 25043 [facility] Hosp L3
[2023-11-12] MEDS: Norepinephrine 8 MG in 0.9% Normal Saline (250mL Bag) 242 ML 37.5 MG CONT INF ×2 (07:42→14:38)
[2023-11-12 07:54] LABS: CPK Total, Creatine Kinase 822 U/L (39-308)
[2023-11-12] MEDS: Enoxaparin 40 MG/0.4 ML Syringe SC (08:10)
[2023-11-12] MEDS: Vancomycin HCl 750 MG in 0.9% Normal Saline (250mL Bag) 250 ML 250 MG IV (08:10)
[2023-11-12] MEDS: Nystatin Powder 15gm Bottle 1 APPLIC TOPICAL ×2 (08:10→20:49)
[2023-11-12] MEDS: Aspirin 81 MG TAB.CHEW PO (08:10)
[2023-11-12] MEDS: Chlorhexidine 15 ML PO ×2 (08:10→20:49)
[2023-11-12] MEDS: Senna Tablet 2 TABLET GT ×2 (09:40→20:49)
[2023-11-12] MEDS: Pantoprazole Sodium 40 MG in 0.9% Normal Saline (100mL MB+) 100 ML 330 MG IV (09:40)
--- NOTE | 2023-11-12 10:13 | CASEMGMT ---
Social Work SW received call from Pt's [facility] Water Pollution Control Inspector Anabell ([phone]). Update provided. Anabell can be contacted for any discharge needs. RICARDO Cadena
[2023-11-12] MEDS: Acetaminophen 650 MG/20 ML UDC GT (10:43)
[2023-11-12] MEDS: Vital AF 1.2 Cal Liquid 1,000 ML 50 ML GT (10:44)
[2023-11-12] MEDS: dexMEDEtomidine 400 MCG in 0.9% Normal Saline (100mL Bag) 96 ML 6.4 MCG CONT INF (12:33)
[2023-11-12] MEDS: Atorvastatin Calcium 20 MG Tablet PO (20:49)
[2023-11-12] MEDS: Vancomycin Trough/Random Due 1 LAB MC (20:53)
[2023-11-12 21:26] LABS: Vancomycin, Trough Level 11.3 ug/mL (5.0-15.0)
--- NOTE | 2023-11-12 21:34 | PCM.RX.CS ---
Consult Antibiotic Management Pharmacy has been consulted to manage selected antibiotic: Vancomycin Type of Intervention Type of Consult: Follow-up Labs Labs: Sodium 136 mmol/L (136-145) 11/12/23 03:30 Potassium 4.7 mmol/L (3.5-5.1) 11/12/23 03:30 Chloride 110 mmol/L (98-107) H 11/12/23 03:30 Carbon Dioxide 21.0 mmol/L (21.0-32.0) 11/12/23 03:30 Anion Gap 5 (5-15) 11/12/23 03:30 BUN 40 mg/dL (7-18) H 11/12/23 03:30 Creatinine 1.15 mg/dL (0.70-1.30) 11/12/23 03:30 Est GFR (MDRD) Af Amer 81 mL/min (>60) 11/12/23 03:30 Est GFR (MDRD) Non-Af 67 mL/min (>60) 11/12/23 03:30 BUN/Creatinine Ratio 34.8 RATIO (10-20) H 11/12/23 03:30 Glucose 218 mg/dL (74-106) H 11/12/23 03:30 Vancomycin Trough 11.3 ug/mL (5.0-15.0) 11/12/23 20:30 Microbiology Microbiology: Microbiology 11/11/23 03:55 Sputum, Induced/Lukens Gram Stain - Final 11/11/23 03:55 Sputum, Induced/Lukens Respiratory Culture - Preliminary Appears to be normal respiratory delilah. Further studies to follow. 11/10/23 22:20 Urine, Clean Catch Urine Culture - Preliminary Culture exhibits no growth. 11/11/23 07:45 Nasal Secretion MRSA (PCR) - Final Meth. resistant Staph. aureus 11/10/23 22:20 Mucosa - Nasopharyngeal SARS-CoV-2, Influenza & RSV (PCR) - Final Goal Trough Goal Trough: 15-20 mcg/mL Pharmacy Plan for Drug Dosing Pharmacy Plan for Drug Dosing: Pharmacy Service will continue to monitor and adjust dosing as required. TROUGH 11.3 @ 12 HOURS. INCREASE TO 1GM Q12H AND FOLLOW UP TROUGH PRIOR TO 4TH DOSE Follow-Up Labs Follow-Up Labs: Trough: Vancomycin Date/Time Labs Ordered Labs to be done on [date and time ordered]: 11/13 @ 0900
[2023-11-12] MEDS: Vancomycin IV 1,000 MG/200 ML BAG 200 MG IV (21:38)
[2023-11-13] VITALS (38 sets, daily range): BP systolic 92–158; BP diastolic 58–85; PULSE 83–114; RESP 12–22; TEMP 36.6–37.3; O2SAT 86–100; BMI 27.3
[2023-11-13] MEDS: dexMEDEtomidine 400 MCG in 0.9% Normal Saline (100mL Bag) 96 ML 10.7 MCG CONT INF (00:50)
[2023-11-13] MEDS: Norepinephrine 8 MG in 0.9% Normal Saline (250mL Bag) 242 ML 18.8 MG CONT INF (01:58)
[2023-11-13 04:53] LABS: Basophil# 0.03 X10^3/uL; Basophil% 0.3 % (0-1); Hematocrit 36.4 % (40-54); Hemoglobin 11.9 g/dL (13.0-16.5); Lymphocyte # 0.15 X10^3/ul (0.83-4.51); Lymphocyte % 1.3 % (19-41); Mean Corp Hgb Conc 32.7 g/dL (32-36); Mean Corpuscular Hgb 29.8 pg (27.0-32.0); Mean Corpuscular Volume 91.2 fL (80-94); Monocyte# 0.62 X10^3/uL; Monocyte% 5.4 % (0-10); NRBC Flagged by Analyzer 0 % (0-5); Neutrophil # 10.69 X10^3/uL (2.7-7.7); Neutrophil % 92.3 % (47-70); POSITIVE DIFFERENTIAL YES; POSITIVE MORPHOLOGY YES; Platelet Count 114 K/mm3 (150-450); RBC Distribution Width SD 47.3 fl (35.1-43.9); Red Blood Count 3.99 M/mm3 (4.6-6.2); White Blood Count 11.6 K/mm3 (4.4-11.0)
[2023-11-13 05:05] LABS: Anion Gap 5 (5-15); BUN 39 mg/dL (7-18); BUN/Creat Ratio 45.5 RATIO (10-20); Calcium,Total 8.3 mg/dL (8.5-10.1); Chloride 110 mmol/L (98-107); Creatinine, Serum 0.86 mg/dL (0.70-1.30); EST Glomerular Filtration Rate 94 mL/min (>60); Est Glom Filt Rate - Afr Amer 114 mL/min (>60); Estimated Creatinine Clearance 82.53 ml/min; Glucose 375 mg/dL (74-106); Magnesium 2.4 mg/dL (1.6-2.6); Phosphorus 1.4 mg/dL (2.5-4.9); Potassium 4.1 mmol/L (3.5-5.1); Sodium Level 138 mmol/L (136-145)
[2023-11-13] MEDS: Piperacil/Tazobactam 3.375 GM in 0.9% Normal Saline (50mL MB+) 50 ML IV ×3 (05:27→21:44)
[2023-11-13 05:41] LABS: Differential Indicated SCAN CRITERIA MET
[2023-11-13 06:02] LABS: Differential Comment SCANNED
[2023-11-13] MEDS: Ipratropium/Albuterol Sulfate 3 ML AMPUL.NEB INHALATION ×3 (06:55→19:05)
--- NOTE | 2023-11-13 07:39 | PCM.PN.INT ---
Assessment & Plan Assessment/Plan (1) Acute hypoxemic respiratory failure: PLAN: Plan RECOMMENDATIONS: 1. Proceed with a trial of extubation this morning. 2. Once extubated, wean supplemental oxygen to maintain saturations at or above 90%. 3. Bedside swallow evaluation prior to advancement of diet. 4. Continue antimicrobial therapy. 5. Continue bronchodilators and steroids as ordered. 6. Continue appropriate prophylaxis. 7. Encourage incentive spirometer use and mobilize patient as tolerated. IMPRESSIONS: 1. Acute hypoxemic respiratory failure The patient presented to the hospital after falling in his home environment in the setting of complaints of shortness of breath and cough. Ultimately, the patient decompensated from a respiratory perspective and was intubated in the emergency department. He has radiographic evidence of a dense right lower lobe consolidation, concerning for pneumonia. The patient has been maintained on broad-spectrum antimicrobial therapy. In light of his reported history of COPD, we will plan to continue scheduled bronchodilators and steroids. The patient's respiratory status has improved and he is a candidate for a trial of extubation. Once extubated, wean supplemental oxygen to maintain saturations at or above 90%. 2. Septic shock The patient presented to the hospital with sepsis due to probable pneumonia with acute sepsis related organ dysfunction as evidenced by altered mental status, lactic acidemia and respiratory failure requiring invasive mechanical ventilatory support. The patient went on to develop fluid refractory hypotension, necessitating vasopressor support. The patient was able to be weaned off of Levophed overnight. Plan to continue antibiotics. 3. Chronic tobacco dependency/history of COPD of unknown severity/anxiety/depression/hyperlipidemia Complicates care, management, recovery and prognosis. Continue supportive measures as noted above. Recommend swallow evaluation prior to advancement of diet. TIME: 34 minutes of critical care time, independent of procedures, was spent addressing the patient's acute hypoxemic respiratory failure, septic shock, review of all data and collaboration with the care team. Subjective Subjective The patient was seen and examined at the bedside this morning. Events from the last 24 hours have been reviewed. The patient was able to be successfully weaned off of Levophed. He is currently tolerating his spontaneous breathing trial. There have been no issues with endotracheal tube secretions. The patient is documented to be overall net +9.4 L for the hospitalization. White count has improved to 11,000. Phosphorus is low at 1.4. The patient is alert and able to follow simple commands. Objective Data Objective Data The patient's most recent lab work, culture data and imaging studies have all been personally reviewed. Blood, urine and sputum cultures are pending. Vital Signs: Vital Signs Temp Pulse Resp BP Pulse Ox O2 Del Method O2 Flow Rate 98.8 F 107 H 13 103/63 91 Mechanical Ventilator 2 11/13/23 02:00 11/13/23 07:15 11/13/23 07:00 11/13/23 07:15 11/13/23 07:00 11/13/23 07:00 11/11/23 01:00 FiO2 30 11/13/23 07:00 Oxygen Flow Rate (L/min) 2 Oxygen Delivery Method Mechanical Ventilator Weight: 191 lb 5.78 oz Body Mass Index (BMI) 27.3 Intake & Output: Intake and Output for Last 24 Hours 11/11/23 11/12/23 11/13/23 23:59 23:59 23:59 Intake Total 5204.68 / 5993.38 5745.33 / 5904.83 1316.53 / 1316.53 Output Total 640 / 940 1175 / 1175 1150 / 1150 Balance 4564.68 / 5053.38 4570.33 / 4729.83 166.53 / 166.53 Lab / Micro Data Attestation: I reviewed the patient's lab results. 11/13/23 04:40 11/13/23 04:40 Labs: Laboratory Results - last 24 hr 11/12/23 03:30: Hemoglobin A1c 6.0 H, Total Creatine Kinase 822 H 11/12/23 20:30: Vancomycin Trough 11.3 11/13/23 04:40: WBC 11.6 H, RBC 3.99 L, Hgb 11.9 L, Hct 36.4 L, MCV 91.2, MCH 29.8, MCHC 32.7, RDW Std Deviation 47.3 H, RDW Coeff of Jackie 14.0, Plt Count 114 L, MPV 11.0, Immature Gran % (Auto) 0.700, Neut % (Auto) 92.3 H, Lymph % (Auto) 1.3 L, Isabela % (Auto) 5.4, Eos % (Auto) 0.0, Baso % (Auto) 0.3, Absolute Neuts (auto) 10.7 H, Absolute Lymphs (auto) 0.15 L, Nucleated RBC % 0, Differential Comment SCANNED, Sodium 138, Potassium 4.1, Chloride 110 H, Carbon Dioxide 24.0, Anion Gap 5, BUN 39 H, Creatinine 0.86, Estim Creat Clear Calc 82.53, Est GFR (MDRD) Af Amer 114, Est GFR (MDRD) Non-Af 94, BUN/Creatinine Ratio 45.5 H, Glucose 375 H, Calcium 8.3 L, Phosphorus 1.4 L, Magnesium 2.4 Micro: Microbiology 11/11/23 03:55 Sputum, Induced/Lukens Gram Stain - Final 11/11/23 03:55 Sputum, Induced/Lukens Respiratory Culture - Preliminary Appears to be normal respiratory delilah. Further studies to follow. 11/10/23 22:20 Urine, Clean Catch Urine Culture - Preliminary Culture exhibits no growth. 11/11/23 07:45 Nasal Secretion MRSA (PCR) - Final Meth. resistant Staph. aureus 11/10/23 22:20 Mucosa - Nasopharyngeal SARS-CoV-2, Influenza & RSV (PCR) - Final Radiography Diagnostic Testing: Radiology Impression Echocardiogram 11/11/23 22:31 Interpretation Summary The estimated ejection fraction is 60 %. No evidence for diastolic dysfunction. Ordering Physician: Yamilka Lozada Referring Physician: Sam Brower Chi Performed By: Ophelia Lucio RDCS Physical Exam Const Constitutional Narrative: Intubated and mechanically ventilated. Tolerating spontaneous mode of mechanical ventilation currently. HEENT normocephalic and head/scalp atraumatic Mouth: endotracheal tube in place and OG tube in place Eyes PERRL and EOMs intact bilaterally Neck supple General: trachea midline Chest inspection of chest normal Resp Auscultation: diminished lung sounds; Negative for rales, rhonchi or wheezes Cardio regular rate and regular rhythm GI normal to inspection, nondistended, normoactive bowel sounds Extremity no clubbing, cyanosis or edema Neuro Neuro Narrative: Alert and able to follow simple commands. Psych Activity / Motor Behavior: restless Charges/Coding Procedures Hospitalists Procedures: 53792 Critical Care 1st Hr
--- NOTE | 2023-11-13 08:55 | PCM.PN.HOSP ---
Reason for Visit Reason for Visit: Diagnoses Hyperlipidemia, unspecified (11/11/23) Anxiety disorder, unspecified (11/11/23) Pneumonia, unspecified organism (11/11/23) Acute respiratory failure with hypoxia (11/11/23) Tobacco use (11/11/23) Subjective Subjective Patient seen successfully weaned off the vent. Patient scheduled to undergo bedside speech eval Objective Data Objective Data Vital Signs: Vital Signs Temp Pulse Resp BP Pulse Ox O2 Del Method O2 Flow Rate 98.8 F 113 H 18 103/63 92 Nasal Cannula 2 11/13/23 02:00 11/13/23 07:47 11/13/23 07:47 11/13/23 07:15 11/13/23 07:47 11/13/23 07:47 11/13/23 07:47 FiO2 30 11/13/23 07:00 Oxygen Flow Rate (L/min) 2 Oxygen Delivery Method Nasal Cannula Weight: 86.8 kg Body Mass Index (BMI) 27.3 Intake & Output: Intake and Output for Last 24 Hours 11/11/23 11/12/23 11/13/23 23:59 23:59 23:59 Intake Total 5204.68 / 5993.38 5745.33 / 5904.83 1324.55 / 1324.55 Output Total 640 / 940 1175 / 1175 1150 / 1150 Balance 4564.68 / 5053.38 4570.33 / 4729.83 174.55 / 174.55 Lab / Micro Data 11/13/23 04:40 11/13/23 04:40 Labs: Laboratory Results - last 24 hr 11/12/23 03:30: Hemoglobin A1c 6.0 H 11/12/23 20:30: Vancomycin Trough 11.3 11/13/23 04:40: WBC 11.6 H, RBC 3.99 L, Hgb 11.9 L, Hct 36.4 L, MCV 91.2, MCH 29.8, MCHC 32.7, RDW Std Deviation 47.3 H, RDW Coeff of Jackie 14.0, Plt Count 114 L, MPV 11.0, Immature Gran % (Auto) 0.700, Neut % (Auto) 92.3 H, Lymph % (Auto) 1.3 L, Casey % (Auto) 5.4, Eos % (Auto) 0.0, Baso % (Auto) 0.3, Absolute Neuts (auto) 10.7 H, Absolute Lymphs (auto) 0.15 L, Nucleated RBC % 0, Differential Comment SCANNED, Sodium 138, Potassium 4.1, Chloride 110 H, Carbon Dioxide 24.0, Anion Gap 5, BUN 39 H, Creatinine 0.86, Estim Creat Clear Calc 82.53, Est GFR (MDRD) Af Amer 114, Est GFR (MDRD) Non-Af 94, BUN/Creatinine Ratio 45.5 H, Glucose 375 H, Calcium 8.3 L, Phosphorus 1.4 L, Magnesium 2.4 Micro: Microbiology 11/11/23 03:55 Sputum, Induced/Lukens Gram Stain - Final 11/11/23 03:55 Sputum, Induced/Lukens Respiratory Culture - Final Mixed normal respiratory delilah. No Streptococcus pneumoniae, beta-hemolytic Streptococcus or Staphylococcus aureus isolated. 11/10/23 22:20 Urine, Clean Catch Urine Culture - Final Mixed Gram Positive Organisms 11/10/23 22:49 Blood Culture (Wb) - Anticubital Left Blood Culture - Preliminary No growth in 48 hours. 11/11/23 07:45 Nasal Secretion MRSA (PCR) - Final Meth. resistant Staph. aureus 11/10/23 22:20 Mucosa - Nasopharyngeal SARS-CoV-2, Influenza & RSV (PCR) - Final Radiography Diagnostic Testing: Radiology Impression Echocardiogram 11/11/23 22:31 Interpretation Summary The estimated ejection fraction is 60 %. No evidence for diastolic dysfunction. Ordering Physician: Yamilka Lozada Referring Physician: Sam Brower Chi Performed By: Ophelia Lucio RDCS Physical Exam Narrative GENERAL: Of the vent, in no apparent HEENT: Atraumatic; normocephalic EYES; Anicteric, Normal Conjunctiva NECK; supple, normal thyroid, RESPIRATORY: Diminished to auscultation CARDIOVASCULAR: Regular S1 S2, GI: soft, normoactive bowel sounds, : No Renal angle tenderness; EXTREMITIES: No edema, no clubbing, MUSCULOSKELETAL: no muscle wasting NEURO: Awake, no lateralizing sign SKIN: No Rash Assessment & Plan Assessment/Plan (1) Hyperlipidemia: (2) Tobacco abuse: (3) Anxiety: (4) Pneumonia: PLAN: Plan Patient is a 68-year-old gentleman who presented with progressive shortness of breath and assessment of acute hypoxic respiratory failure was made. Patient was admitted to the progressive care unit initiated on BiPAP respiratory status worsened necessitating patient being intubated and admitted to the intensive care unit 1. Acute hypoxic respiratory failure ? Secondary to community-acquired pneumonia. Patient was placed initially on BiPAP clinical condition deteriorated resulting in patient being intubated and admitted to the intensive care unit. Vent management deferred to director of curriculum and instruction ? 11/13/2023;Patient seen successfully weaned off the vent. Patient scheduled to undergo bedside speech eval 2. Septic shock ? Secondary to patient pneumonia treated per protocol with IV fluid resuscitation broad-spectrum antibiotic therapy after cultures have been sent as well as 2 pressors Levophed and vasopressin ? 11/13/2019 2470 patient MRSA PCR nasal screen came back positive sputum cultures so far unremarkable patient however did respond to treatment we will continue with current antibiotic therapy Case discussed with director of curriculum and instruction 3. Dyslipidemia ? Patient is on simvastatin plan is to resume following patient's extubation 4. Tobacco dependence ? Patient had apparently been counseled on cessation prior to his intubation ? 11/13/2023; counseled on cessation 5. Depression with anxiety ? Patient is on bupropion, clonazepam as well as risperidone at night and trazodone for sleep 6. DVT prophylaxis ? SC Lovenox Time spent in the patient's overall evaluation,decision-making process, review of diagnostic data, adjustment of management, discussion with other providers, nursing nursing and ancillary staff involved in patient's care documentation 40 Minutes Charges/Coding Visit Charges Inpatient E&M: 86589 [facility] Hosp L2
[2023-11-13] MEDS: 0.9% Saline Lock 10 ML Syringe IV ×4 (09:16→23:15)
[2023-11-13] MEDS: Potassium Phosphate 30 MM in 0.9% Normal Saline (250mL Bag) 250 ML 42 MM IV (09:16)
[2023-11-13] MEDS: Vancomycin IV 1,000 MG/200 ML BAG 200 MG IV ×2 (09:56→20:36)
[2023-11-13] MEDS: Enoxaparin 40 MG/0.4 ML Syringe SC (09:57)
[2023-11-13] MEDS: CHLORHEXIDINE GLUC 2% CLOTH 1 EACH TOWELETTE TOPICAL (09:57)
[2023-11-13] MEDS: 0.9% Normal Saline (250mL Bag) 250 ML 15 ML IV (09:57)
[2023-11-13] MEDS: Nystatin Powder 15gm Bottle 1 APPLIC TOPICAL ×2 (09:58→20:37)
[2023-11-14] VITALS (25 sets, daily range): BP systolic 117–154; BP diastolic 58–95; PULSE 88–115; RESP 15–28; TEMP 36.6–37.1; O2SAT 87–100; BMI 26.9
[2023-11-14] MEDS: Ipratropium/Albuterol Sulfate 3 ML AMPUL.NEB INHALATION ×4 (00:30→21:24)
[2023-11-14] MEDS: Piperacil/Tazobactam 3.375 GM in 0.9% Normal Saline (50mL MB+) 50 ML IV ×3 (05:20→23:00)
[2023-11-14 05:35] LABS: Absolute Lymphocyte Count 0.29 X10^3/uL (0.83-4.51); Absolute Neutrophil Count 10.2 X10^3/uL (2.0-7.7); Basophil# 0.03 X10^3/uL; Basophil% 0.3 % (0-1); Hemoglobin 11.8 g/dL (13.0-16.5); Lymphocyte # 0.29 X10^3/ul (0.83-4.51); Lymphocyte % 2.6 % (19-41); Mean Corp Hgb Conc 32.8 g/dL (32-36); Mean Corpuscular Hgb 29.9 pg (27.0-32.0); Mean Corpuscular Volume 91.1 fL (80-94); Mean Platelet Vol. 11.2 fl (6.2-12.0); Monocyte# 0.53 X10^3/uL; Monocyte% 4.7 % (0-10); NRBC Flagged by Analyzer 0 % (0-5); Neutrophil # 10.24 X10^3/uL (2.7-7.7); Neutrophil % 91.4 % (47-70); POSITIVE COUNT YES; POSITIVE DIFFERENTIAL YES; Platelet Count 97 K/mm3 (150-450); Red Blood Count 3.95 M/mm3 (4.6-6.2); White Blood Count 11.2 K/mm3 (4.4-11.0)
[2023-11-14 05:47] LABS: Anion Gap 3 (5-15); BUN 29 mg/dL (7-18); BUN/Creat Ratio 42.6 RATIO (10-20); Calcium,Total 8.8 mg/dL (8.5-10.1); Chloride 114 mmol/L (98-107); Creatinine, Serum 0.68 mg/dL (0.70-1.30); EST Glomerular Filtration Rate 122 mL/min (>60); Est Glom Filt Rate - Afr Amer 148 mL/min (>60); Estimated Creatinine Clearance 88.72 ml/min; Glucose 199 mg/dL (74-106); Potassium 4.1 mmol/L (3.5-5.1); Sodium Level 146 mmol/L (136-145)
--- NOTE | 2023-11-14 07:10 | PCM.PN.HOSP ---
Reason for Visit Reason for Visit: Diagnoses Hyperlipidemia, unspecified (11/11/23) Anxiety disorder, unspecified (11/11/23) Pneumonia, unspecified organism (11/11/23) Acute respiratory failure with hypoxia (11/11/23) Tobacco use (11/11/23) Subjective Subjective Patient was weaned off the vent the day prior. Was kept n.p.o. overnight in anticipation of speech eval Objective Data Objective Data Vital Signs: Vital Signs Temp Pulse Resp BP Pulse Ox O2 Del Method O2 Flow Rate 97.8 F 115 H 25 H 148/80 H 100 Nasal Cannula 4 11/14/23 05:00 11/14/23 07:00 11/14/23 07:00 11/14/23 07:00 11/14/23 07:02 11/14/23 07:02 11/14/23 07:02 FiO2 30 11/13/23 07:00 Oxygen Flow Rate (L/min) 4 Oxygen Delivery Method Nasal Cannula Weight: 85.5 kg Body Mass Index (BMI) 26.9 Intake & Output: Intake and Output for Last 24 Hours 11/12/23 11/13/23 11/14/23 23:59 23:59 23:59 Intake Total 5745.33 / 5904.83 2175.05 / 2175.05 50 / 50 Output Total 1175 / 1175 2600 / 3250 1050 / 1050 Balance 4570.33 / 4729.83 -424.95 / -1074.95 -1000 / -1000 Lab / Micro Data 11/14/23 05:20 11/14/23 05:20 Labs: Laboratory Results - last 24 hr 11/14/23 05:20: WBC 11.2 H, RBC 3.95 L, Hgb 11.8 L, Hct 36.0 L, MCV 91.1, MCH 29.9, MCHC 32.8, RDW Std Deviation 47.0 H, RDW Coeff of Jackie 14.0, Plt Count 97 L, MPV 11.2, Immature Gran % (Auto) 1.000 H, Neut % (Auto) 91.4 H, Lymph % (Auto) 2.6 L, Geary % (Auto) 4.7, Eos % (Auto) 0.0, Baso % (Auto) 0.3, Absolute Neuts (auto) 10.2 H, Absolute Lymphs (auto) 0.29 L, Nucleated RBC % 0, Sodium 146 H, Potassium 4.1, Chloride 114 H, Carbon Dioxide 29.0, Anion Gap 3 L, BUN 29 H, Creatinine 0.68 L, Estim Creat Clear Calc 88.72, Est GFR (MDRD) Af Amer 148, Est GFR (MDRD) Non-Af 122, BUN/Creatinine Ratio 42.6 H, Glucose 199 H, Calcium 8.8 Micro: Microbiology 11/11/23 03:55 Sputum, Induced/Lukens Gram Stain - Final 11/11/23 03:55 Sputum, Induced/Lukens Respiratory Culture - Final Mixed normal respiratory delilah. No Streptococcus pneumoniae, beta-hemolytic Streptococcus or Staphylococcus aureus isolated. 11/10/23 22:20 Urine, Clean Catch Urine Culture - Final Mixed Gram Positive Organisms 11/10/23 22:49 Blood Culture (Wb) - Anticubital Left Blood Culture - Preliminary No growth in 48 hours. 11/11/23 07:45 Nasal Secretion MRSA (PCR) - Final Meth. resistant Staph. aureus 11/10/23 22:20 Mucosa - Nasopharyngeal SARS-CoV-2, Influenza & RSV (PCR) - Final Physical Exam Narrative GENERAL: Of the vent, in no apparent HEENT: Atraumatic; normocephalic EYES; Anicteric, Normal Conjunctiva NECK; supple, normal thyroid, RESPIRATORY: Diminished to auscultation CARDIOVASCULAR: Regular S1 S2, GI: soft, normoactive bowel sounds, : No Renal angle tenderness; EXTREMITIES: No edema, no clubbing, MUSCULOSKELETAL: no muscle wasting NEURO: Awake, no lateralizing sign SKIN: No Rash Assessment & Plan Assessment/Plan (1) Hyperlipidemia: (2) Tobacco abuse: (3) Anxiety: (4) Pneumonia: PLAN: Plan Patient is a 68-year-old gentleman who presented with progressive shortness of breath and assessment of acute hypoxic respiratory failure was made. Patient was admitted to the progressive care unit initiated on BiPAP respiratory status worsened necessitating patient being intubated and admitted to the intensive care unit 1. Acute hypoxic respiratory failure ? Secondary to community-acquired pneumonia. Patient was placed initially on BiPAP clinical condition deteriorated resulting in patient being intubated and admitted to the intensive care unit. Vent management deferred to animal bounty hunter ? 11/13/2023;Patient seen successfully weaned off the vent. Patient scheduled to undergo bedside speech eval ?11/14/2023;Patient was weaned off the vent the day prior. Was kept n.p.o. overnight in anticipation of speech eval 2. Septic shock ? Secondary to patient pneumonia treated per protocol with IV fluid resuscitation broad-spectrum antibiotic therapy after cultures have been sent as well as 2 pressors Levophed and vasopressin ? 11/13/2019 2470 patient MRSA PCR nasal screen came back positive sputum cultures so far unremarkable patient however did respond to treatment we will continue with current antibiotic therapy Case discussed with animal bounty hunter 3. Dyslipidemia ? Patient is on simvastatin plan is to resume following patient's extubation 4. Tobacco dependence ? Patient had apparently been counseled on cessation prior to his intubation ? 11/13/2023; counseled on cessation 5. Depression with anxiety ? Patient is on bupropion, clonazepam as well as risperidone at night and trazodone for sleep 6. DVT prophylaxis ? SC Lovenox 7. Physical deconditioning ? Requested for PT OT eval and web content & social media manager to assist with discharge planning Time spent in the patient's overall evaluation,decision-making process, review of diagnostic data, adjustment of management, discussion with other providers, nursing nursing and ancillary staff involved in patient's care documentation 36 Minutes Charges/Coding Visit Charges Inpatient E&M: 43986 Subs Hosp L2
--- NOTE | 2023-11-14 07:23 | PN.CC_ITS ---
Assessment & Plan Assessment/Plan (1) Acute hypoxemic respiratory failure: PLAN: Plan RECOMMENDATIONS: 1. Continue supplemental oxygen to maintain saturations at or above 90%. 2. Plan for modified barium swallow today prior to advancement of diet. 3. Continue antimicrobials to complete 7 days of therapy. 4. Continue bronchodilators and steroids. 5. Administer IV Lasix x 1 as ordered today. 6. Encourage incentive spirometer use and mobilize patient as tolerated. 7. Continue appropriate prophylaxis. IMPRESSIONS: 1. Acute hypoxemic respiratory failure The patient presented to the hospital after falling in his home environment in the setting of complaints of shortness of breath and cough. Ultimately, the patient decompensated from a respiratory perspective and was intubated in the emergency department. He has radiographic evidence of a dense right lower lobe consolidation, concerning for pneumonia. The patient has been maintained on broad-spectrum antimicrobial therapy. In light of his reported history of COPD, we will plan to continue scheduled bronchodilators and steroids. With the aforementioned interventions, the patient's respiratory status improved and he was able to be extubated on November 12. Plan to continue supplemental oxygen to maintain saturations at or above 90%. Encourage incentive spirometer use and mobilize patient as tolerated. 2. Septic shock The patient presented to the hospital with sepsis due to probable pneumonia with acute sepsis related organ dysfunction as evidenced by altered mental status, lactic acidemia and respiratory failure requiring invasive mechanical ventilatory support. The patient went on to develop fluid refractory hypotension, necessitating vasopressor support. The patient was able to be weaned off of Levophed and remains hemodynamically stable. Plan to continue antibiotics to complete 7 days of therapy. 3. Chronic tobacco dependency/history of COPD of unknown severity/anxiety/depression/hyperlipidemia Complicates care, management, recovery and prognosis. Continue supportive measures as noted above. Speech therapy is following with plans for modified barium swallow today prior to advancement of diet. This note was generated with [employer] dictation software. It may contain incorrect words, spelling, and punctuation that were not noted in checking the note before signing. Subjective Subjective The patient was seen and examined at the bedside this morning. Events from the last 24 hours have been reviewed. The patient is currently afebrile, hemodynamically stable and maintaining appropriate oxygen saturations on 4 L/min via nasal cannula. The patient has been intermittently confused and disoriented overnight. He did not pass his swallow evaluation yesterday. Therefore, there are tentative plans to proceed with a modified barium swallow today. Sodium this morning is elevated at 146. Creatinine remains within normal limits. Objective Data Objective Data The patient's most recent lab work, culture data and imaging studies have all been personally reviewed. Blood, urine and sputum cultures are pending. Vital Signs: Vital Signs Temp Pulse Resp BP Pulse Ox O2 Del Method O2 Flow Rate 97.8 F 115 H 25 H 148/80 H 100 Nasal Cannula 4 11/14/23 05:00 11/14/23 07:00 11/14/23 07:00 11/14/23 07:00 11/14/23 07:02 11/14/23 07:02 11/14/23 07:02 FiO2 30 11/13/23 07:00 Oxygen Flow Rate (L/min) 4 Oxygen Delivery Method Nasal Cannula Weight: 188 lb 7.924 oz Body Mass Index (BMI) 26.9 Intake & Output: Intake and Output for Last 24 Hours 11/12/23 11/13/23 11/14/23 23:59 23:59 23:59 Intake Total 5745.33 / 5904.83 2175.05 / 2175.05 50 / 50 Output Total 1175 / 1175 2600 / 3250 1050 / 1050 Balance 4570.33 / 4729.83 -424.95 / -1074.95 -1000 / -1000 Lab / Micro Data Attestation: I reviewed the patient's lab results. 11/14/23 05:20 11/14/23 05:20 Labs: Laboratory Results - last 24 hr 11/14/23 05:20: WBC 11.2 H, RBC 3.95 L, Hgb 11.8 L, Hct 36.0 L, MCV 91.1, MCH 29.9, MCHC 32.8, RDW Std Deviation 47.0 H, RDW Coeff of Jackie 14.0, Plt Count 97 L , MPV 11.2, Immature Gran % (Auto) 1.000 H, Neut % (Auto) 91.4 H, Lymph % (Auto) 2.6 L, [facility] % (Auto) 4.7, Eos % (Auto) 0.0, Baso % (Auto) 0.3, Absolute Neuts (auto) 10.2 H, Absolute Lymphs (auto) 0.29 L, Nucleated RBC % 0, Sodium 146 H, Potassium 4.1, Chloride 114 H, Carbon Dioxide 29.0, Anion Gap 3 L, BUN 29 H, C reatinine 0.68 L, Estim Creat Clear Calc 88.72, Est GFR (MDRD) Af Amer 148, Est GFR (MDRD) Non-Af 122, BUN/Creatinine Ratio 42.6 H, Glucose 199 H, Calcium 8.8 Micro: Microbiology 11/11/23 03:55 Sputum, Induced/Lukens Gram Stain - Final 11/11/23 03:55 Sputum, Induced/Lukens Respiratory Culture - Final Mixed normal respiratory delilah. No Streptococcus pneumoniae, beta-hemolytic Streptococcus or Staphylococcus aureus isolated. 11/10/23 22:20 Urine, Clean Catch Urine Culture - Final Mixed Gram Positive Organisms 11/10/23 22:49 Blood Culture (Wb) - Anticubital Left Blood Culture - Preliminary No growth in 48 hours. 11/11/23 07:45 Nasal Secretion MRSA (PCR) - Final Meth. resistant Staph. aureus 11/10/23 22:20 Mucosa - Nasopharyngeal SARS-CoV-2, Influenza & RSV (PCR) - Final Radiography Diagnostic Testing: Radiology Impression Echocardiogram 11/11/23 22:31 Interpretation Summary The estimated ejection fraction is 60 %. No evidence for diastolic dysfunction. Ordering Physician: Yamilka Lozada Referring Physician: Sam Brower Chi Performed By: Ophelia Lucio, RDCS Physical Exam Const alert and no apparent distress Constitutional Narrative: Intermittently confused and disoriented. HEENT normocephalic and head/scalp atraumatic Eyes PERRL and EOMs intact bilaterally Neck supple General: trachea midline and CVC in place Chest inspection of chest normal Resp normal respiratory effort Auscultation: wheezes and diminished lung sounds; Negative for rales or rhonchi Cardio regular rate and regular rhythm GI normal to inspection, nondistended, normoactive bowel sounds Extremity no clubbing, cyanosis or edema Neuro CN's II-XII intact bilaterally, moves all extremities and no focal motor deficits Psych cooperative and affect normal Charges/Coding Visit Charges Inpatient E&M: 67064 Subs Hosp L3
[2023-11-14] MEDS: 0.9% Saline Lock 10 ML Syringe IV ×2 (08:09→14:23)
[2023-11-14] MEDS: Furosemide 40 MG/4 ML Vial IV (08:09)
[2023-11-14 09:36] LABS: Vancomycin, Trough Level 12.2 ug/mL (5.0-15.0)
--- NOTE | 2023-11-14 09:44 | CASEMGMT ---
Social Work- SW met with pt who reports being confused. Pt reports that he was cold and wondered if it was winter. SW provided the month as November to which pt replied already?. Pt expressed lack of understanding why SW offered pt extra blankets because he was reporting he was cold. Pt did state that Anabell is his daughter and Malissa is his friend. When SW shared that there is no HCPOA on file, pt reported that he did not have one. Pt stated it is okay to communicate with Anabell and Malissa. PT was drowsy and began to shut eyes; it was reported pt had not slept throughout the night. ANNABELLE will continue to follow. RICARDO Bone
[2023-11-14] MEDS: Enoxaparin 40 MG/0.4 ML Syringe SC (10:10)
[2023-11-14] MEDS: Nystatin Powder 15gm Bottle 1 APPLIC TOPICAL (10:10)
[2023-11-14] MEDS: Vancomycin HCl 1,250 MG in 0.9% Normal Saline (250mL Bag) 250 ML 167 MG IV ×2 (10:21→21:45)
--- NOTE | 2023-11-14 10:30 | PCM.RX.CS ---
Consult Antibiotic Management Pharmacy has been consulted to manage selected antibiotic: Vancomycin Type of Intervention Type of Consult: Follow-up Prior Doses of Antibiotics Prior Doses of Antibiotics Received/Current Regimen: current dose is vanc 1000mg IV q12h Labs Labs: Sodium 146 mmol/L (136-145) H 11/14/23 05:20 Potassium 4.1 mmol/L (3.5-5.1) 11/14/23 05:20 Chloride 114 mmol/L (98-107) H 11/14/23 05:20 Carbon Dioxide 29.0 mmol/L (21.0-32.0) 11/14/23 05:20 Anion Gap 3 (5-15) L 11/14/23 05:20 BUN 29 mg/dL (7-18) H 11/14/23 05:20 Creatinine 0.68 mg/dL (0.70-1.30) L 11/14/23 05:20 Est GFR (MDRD) Af Amer 148 mL/min (>60) 11/14/23 05:20 Est GFR (MDRD) Non-Af 122 mL/min (>60) 11/14/23 05:20 BUN/Creatinine Ratio 42.6 RATIO (10-20) H 11/14/23 05:20 Glucose 199 mg/dL (74-106) H 11/14/23 05:20 Vancomycin Trough 12.2 ug/mL (5.0-15.0) 11/14/23 09:00 Microbiology Microbiology: Microbiology 11/11/23 03:55 Sputum, Induced/Lukens Gram Stain - Final 11/11/23 03:55 Sputum, Induced/Lukens Respiratory Culture - Final Mixed normal respiratory delilah. No Streptococcus pneumoniae, beta-hemolytic Streptococcus or Staphylococcus aureus isolated. 11/10/23 22:20 Urine, Clean Catch Urine Culture - Final Mixed Gram Positive Organisms 11/10/23 22:49 Blood Culture (Wb) - Anticubital Left Blood Culture - Preliminary No growth in 48 hours. 11/11/23 07:45 Nasal Secretion MRSA (PCR) - Final Meth. resistant Staph. aureus 11/10/23 22:20 Mucosa - Nasopharyngeal SARS-CoV-2, Influenza & RSV (PCR) - Final Dosing Weight Weight used for dosin.5 kg Estimated Creatinine Clearance Estimated Creatinine Clearance: 89ml/min Goal Trough Goal Trough: 15-20 mcg/mL Pharmacy Plan for Drug Dosing Pharmacy Plan for Drug Dosing: The vanc trough drawn at 09:00 today (approx 12.5 hours after the previous dose) was 12.2. This is still below goal range so will increase dose to 1250mg IV q12h. Repeat a trough in 2 days per protocol. Note that the stop date for vanc therapy is 11/17/23 at the end of the day. Pharmacy Service will continue to monitor and adjust dosing as required. Follow-Up Labs Follow-Up Labs: Trough: Vancomycin Date/Time Labs Ordered Labs to be done on [date and time ordered]: 11/16/23 09:30
[2023-11-14] MEDS: Aspirin 81 MG TAB.CHEW PO (13:45)
--- NOTE | 2023-11-14 14:17 | ST.MBS ---
Modified Barium Swallow Patient Information Study Date: 11/14/23 Study Time: 12:30 Direct Billable Minutes: 90 Total Minutes procedure & reportin Diagnosis: Acute hypoxemic resp failure J96.01; PNA J18.9 Referring Physician: Sogn Peters Reason for Referral: Objectively assess swallow function, assess risk for aspiration, and determine recommendations for least restrictive diet textures and compensatory strategies to improve safety of swallow. Medical History: Patient presented to [facility] ED 11/10/2023 with acute shortness of breath. He was found in his apartment by his significant other laying against a wall for >3 hours. He had cough that progressively worsened the last few days prior to admission. He has a history of long-term smoking. Not on oxygen at home. Patient was emergently intubated in the ED on and admitted for management of acute hypoxemic respiratory failure, RLL PNA, and sepsis. Pt was extubated 11/13/[address] consult due to concerns for dysphagia. BSE was completed 11/13/2023 and pt was recommended NPO - ok for sips and chips w/ distant supervision, plan for MBSS 11/14/2023 to rule out concern for silent aspiration. Current Diet Ordered: NPO - sips and chips Dentition: Edentulous (Pt does not own dentures) Mental Status: WNL (Able to follow commands for the evaluation without difficulty) Respiratory Status: Oxygenating on 4L/M nasal cannula Penetration-Aspiration Scale Penetration-Aspiration Scale: OBJECTIVE ASSESSMENT OF SWALLOW FUNCTION (QUANTITATIVE ? PER TRIAL): PENETRATION / ASPIRATION SCALE (VERDIN): 1 = does not enter airway 2 = enters airway/above vocal folds/ejected 3 = enters airway/above vocal folds/not ejected 4 = enters airway/contacts vocal folds/ejected 5 = enters airway/contacts vocal folds/not ejected 6 = enters airway/below vocal folds/ejected 7 = enters airway/below vocal folds/not ejected despite effort 8 = enters airway/below vocal folds/no effort VIDEOFLOROSCOPIC SCALE SCORE (VERDIN): Grade I = aspiration of material that has penetrated into the laryngeal vestibule, intact cough reflex Grade II = aspiration < 10 % of the bolus, intact cough reflex Grade III = aspiration of < 10 % of the bolus, reduced cough reflex or aspiration of > 10 % of the bolus, intact cough reflex Grade IV = aspiration of > 10 % of the bolus, reduced cough reflex Penetration-Aspiration Scale Score Thin Liquid via teaspoon: Result: 1= does not enter airway Thin Liquid via teaspoon Trial 2: Result: 1= does not enter airway Thin Liquid via sequential sips: cup: Result: 1= does not enter airway Ring[place] Thick Liquid via small single sip: cup: Result: 1= does not enter airway [place] Thick Liquid via small single sip: cup Trial 2: Result: 1= does not enter airway Pudding via teaspoon: Result: 1= does not enter airway Comment: Esophageal screen - complete clearance 1/4 Cookie in barium pudding: Result: 1= does not enter airway Thin Liquid via sequential sips:straw: Result: 1= does not enter airway Comment: Esophageal screen - Mild retention in the mid-upper esophagus w/ retrograde flow below the UES. Barium Tablet w/ pudding: Result: 1= does not enter airway Comment: DIRECTOR OF IN SERVICE EDUCATION scored PAS of pudding. No oral clearance of barium tablet. Barium tablet w/ water: Comment: Unable to provide PAS score due to no oral clearance of barium tablet after swallowing water. Pt spit out the tablet. Oral Phase Labial Seal: Escape progressing to mid-chin Tongue Control During Bolus Hold: Escape to lateral buccal cavity/floor of mouth Bolus Preparation/Mastication: Slow prolonged chewing/mashing with complete recollection (>3min for mastication 1/4 regular textured cookie, pt consumes soft solids at home) Bolus Transport/Lingual Motion: Repetitive/disorganized tongue motion Oral Residue: Majority of bolus remaining (piecemeal deglutition of cookie) Pharyngeal Phase Initiation of Pharyngeal Swallow: Bolus head in valleculae Soft Palate Elevation: Trace column of contrast/air between soft palate and pharyngeal wall Laryngeal Elevation: Comp. Superior move thyroid cart w/comp. apprx arytenoid cart-epig pet Anterior Hyoid Excursion: Complete anterior movement Epiglottic Movement: Complete inversion Laryngeal Vestibule Closure at Height of Swallow: Complete; no air/contrast in laryngeal vestibule Pharyngeal Stripping Wave: Present - complete Pharyngoesophageal Segment Opening: Parital distension and partial duration; parital obstruction of flow (trace retention in UES and presence of small CP bar) Tongue Base Retraction: Trace column of contrast between tongue base & post. pharyngeal wall Pharyngeal Residue: Trace residue within or on pharyngeal structures Esophageal Phase Esophageal Clearance: Esophageal retention w/ retrograde flow below pharyngoesophageal seg. Diagnosis/Impression Diagnosis: Mild oral dysphagia R13.11 Impression: The oral phase is primarily marked by... -Anterior loss of thin liquids to chin 1X. -Mildly decreased bolus control w/ min loss of large thin liquid bolus to the FOM. -Lingual pumping for A-P transport. -Pt required >3min for mastication 1/4 regular textured cookie; however, bite was fully chewed after 1min. He chewed and swallowed cookie via piecemeal deglutition for >2 min after 1/4 cookie had been completely chewed. Pt reports consuming soft solids at home. Pharyngeal phase of the swallow appears grossly WNL. Trace pharyngeal residues. Timely swallow onset. No laryngeal penetration or aspiration observed. The esophageal phase is marked by... -Anterior web at the level of C4. -CP bar at the level of C4-C5, trace retention in UES. Recommendations Diet: Puree Textures and Thin Liquids Comment: Medications crushed in applesauce DIRECTOR OF IN SERVICE EDUCATION initially recommended soft and bite size textures (IDDSI Level 6) and thin liquids; however, pt felt soft and bite size textures would be too difficult, so the patient self-elected for puree diet textures. Compensatory Strategies: Small Bites, Small Sips, Slow Rate, Sitting upright and Remain sitting upright for 30 minutes after PO intake Supervision: Distant Supervision Recommend Repeat Modified Barium Swallow: No Need for Skilled Speech Therapy Services: Yes Comment: Dysphagia tx 3-5X/week during acute stay. Will also recommend ST at discharge. -Train pt in oral motor exercises to promote improved lingual coordination and control, as well as improved lip seal. -Ongoing assessment of diet tolerance. Recommended Referrals: GI Consult (Please consider OP GI consult) Education Completed: 1. Described result of evaluation., 2. Pt understands evaluation & agrees with goals and treatment plan. and 5. Patient demonstrates recommended strategies. Status Active ST Patient: Active Contact Information [facility] Speech Therapy:: Karolina Lynn M.A. [facility]-DIRECTOR OF IN SERVICE EDUCATION? Speech-Language Pathologist?? [facility] [address] [place] [address]? [email or web address]?? [phone]
--- NOTE | 2023-11-14 14:49 | CASEMGMT ---
Social Work- SW spoke with dtr Anabell who states she is not POA/there is no POA, but she would help make decisions for/with dad. Anabell stated that she has spoken with nurses and there are plans for a step-down unit tomorrow. Anabell reports that she is planning to come in later in the day and would look at SNF list at that time. SW will collaborate with her Friday if she comes after SW is available tomorrow. A list of SNF providers including quality and resource use data and consistent with the patient?s preferred geographic region, medical needs, and insurance network were provided from the [employer] and left in pt room. SW will remain available to follow. RICARDO Bone
--- NOTE | 2023-11-14 15:43 | CASEMGMT ---
ST is recommending an OP GI consult for this pt. Dr. Peters notified.
[2023-11-14] MEDS: RisperiDONE 1 MG Tablet 2 MG PO (17:02)
[2023-11-14] MEDS: buPROPion 100 MG Tablet PO (17:02)
[2023-11-14] MEDS: traZODone 50 MG Tablet PO (21:44)
[2023-11-14] MEDS: Atorvastatin Calcium 20 MG Tablet PO (21:44)
[2023-11-14] MEDS: clonazePAM 0.5 MG Tablet PO (21:45)
[2023-11-15] VITALS (22 sets, daily range): BP systolic 116–166; BP diastolic 65–96; PULSE 103–130; RESP 24–32; TEMP 36.3–37; O2SAT 90–95; BMI 26.6
--- NOTE | 2023-11-15 02:37 | PCM.HOSP.N ---
Hospitalist Note Patient with mild agitation, attempting to frequently get out of bed. Will administer low dose seroquel x 1 and continue to monitor.
[2023-11-15] MEDS: QUEtiapine 25 MG Tablet PO (03:06)
[2023-11-15] MEDS: RisperiDONE 1 MG Tablet 2 MG PO ×3 (03:07→21:12)
[2023-11-15] MEDS: buPROPion 100 MG Tablet PO ×3 (05:43→21:12)
[2023-11-15] MEDS: Piperacil/Tazobactam 3.375 GM in 0.9% Normal Saline (50mL MB+) 50 ML IV ×3 (05:44→23:16)
[2023-11-15 06:00] LABS: Absolute Lymphocyte Count 0.44 X10^3/uL (0.83-4.51); Absolute Neutrophil Count 7.1 X10^3/uL (2.0-7.7); Basophil# 0.02 X10^3/uL; Basophil% 0.2 % (0-1); Hematocrit 36.2 % (40-54); Hemoglobin 11.7 g/dL (13.0-16.5); Lymphocyte # 0.44 X10^3/ul (0.83-4.51); Lymphocyte % 5.2 % (19-41); Mean Corp Hgb Conc 32.3 g/dL (32-36); Mean Corpuscular Hgb 29.5 pg (27.0-32.0); Mean Corpuscular Volume 91.2 fL (80-94); Mean Platelet Vol. 11.8 fl (6.2-12.0); Monocyte% 8.3 % (0-10); NRBC Flagged by Analyzer 0 % (0-5); Neutrophil # 7.07 X10^3/uL (2.7-7.7); POSITIVE COUNT YES; POSITIVE DIFFERENTIAL YES; Platelet Count 98 K/mm3 (150-450); RBC Distribution Width CV 13.7 % (11.6-14.6); RBC Distribution Width SD 46.1 fl (35.1-43.9); Red Blood Count 3.97 M/mm3 (4.6-6.2); White Blood Count 8.4 K/mm3 (4.4-11.0)
[2023-11-15 06:48] LABS: Anion Gap 3 (5-15); BUN 33 mg/dL (7-18); Calcium,Total 8.6 mg/dL (8.5-10.1); Chloride 113 mmol/L (98-107); Creatinine, Serum 0.67 mg/dL (0.70-1.30); EST Glomerular Filtration Rate 124 mL/min (>60); Est Glom Filt Rate - Afr Amer 150 mL/min (>60); Estimated Creatinine Clearance 88.72 ml/min; Glucose 148 mg/dL (74-106); Potassium 3.7 mmol/L (3.5-5.1); Sodium Level 147 mmol/L (136-145)
--- NOTE | 2023-11-15 07:27 | PN.HOSP_ITS ---
Reason for Visit Reason for Visit: Diagnoses Hyperlipidemia, unspecified (11/11/23) Anxiety disorder, unspecified (11/11/23) Pneumonia, unspecified organism (11/11/23) Acute respiratory failure with hypoxia (11/11/23) Tobacco use (11/11/23) Subjective Subjective Patient was noted to have mild dysphagia. Speech therapy recommended Puree Textures and Thin Liquids and continued speech therapy as outpatient as well as GI consult. Objective Data Objective Data Vital Signs: Vital Signs Temp Pulse Resp BP Pulse Ox O2 Del Method O2 Flow Rate 98 F 112 H 24 H 126/58 H 94 Nasal Cannula 4 11/14/23 19:57 11/15/23 03:39 11/14/23 21:27 11/14/23 19:57 11/15/23 00:00 11/15/23 00:00 11/15/23 00:00 FiO2 30 11/13/23 07:00 Oxygen Flow Rate (L/min) 4 Oxygen Delivery Method Nasal Cannula Weight: 84.3 kg Body Mass Index (BMI) 26.6 Intake & Output: Intake and Output for Last 24 Hours 11/13/23 11/14/23 11/15/23 23:59 23:59 23:59 Intake Total 2175.05 / 2175.05 647.5 / 887.5 290 / 290 Output Total 2600 / 3250 3100 / 3425 475 / 475 Balance -424.95 / -1074.95 -2452.5 / -2537.5 -185 / -185 Lab / Micro Data 11/15/23 05:20 11/15/23 05:20 Labs: Laboratory Results - last 24 hr 11/14/23 09:00: Vancomycin Trough 12.2 11/15/23 05:20: WBC 8.4, RBC 3.97 L, Hgb 11.7 L, Hct 36.2 L, MCV 91.2, MCH 29.5, MCHC 32.3, RDW Std Deviation 46.1 H, RDW Coeff of Jackie 13.7, Plt Count 98 L, MPV 11.8, Immature Gran % (Auto) 2.300 H, Neut % (Auto) 84.0 H, Lymph % (Auto) 5.2 L , Towns % (Auto) 8.3, Eos % (Auto) 0.0, Baso % (Auto) 0.2, Absolute Neuts (auto) 7.1, Absolute Lymphs (auto) 0.44 L, Nucleated RBC % 0, Sodium 147 H, Potassium 3.7, Chloride 113 H, Carbon Dioxide 31.0, Anion Gap 3 L, BUN 33 H, Creatinine 0.67 L, Estim Creat Clear Calc 88.72, Est GFR (MDRD) Af Amer 150, Est GFR (MDRD) Non-Af 124, BUN/Creatinine Ratio 49.0 H, Glucose 148 H, Calcium 8.6 Micro: Microbiology 11/11/23 03:55 Sputum, Induced/Lukens Gram Stain - Final 11/11/23 03:55 Sputum, Induced/Lukens Respiratory Culture - Final Mixed normal respiratory delilah. No Streptococcus pneumoniae, beta-hemolytic Streptococcus or Staphylococcus aureus isolated. 11/10/23 22:20 Urine, Clean Catch Urine Culture - Final Mixed Gram Positive Organisms 11/10/23 22:49 Blood Culture (Wb) - Anticubital Left Blood Culture - Preliminary No growth in 48 hours. 11/11/23 07:45 Nasal Secretion MRSA (PCR) - Final Meth. resistant Staph. aureus 11/10/23 22:20 Mucosa - Nasopharyngeal SARS-CoV-2, Influenza & RSV (PCR) - Final Physical Exam Narrative GENERAL: Of the vent, in no apparent HEENT: Atraumatic; normocephalic EYES; Anicteric, Normal Conjunctiva NECK; supple, normal thyroid, RESPIRATORY: Diminished to auscultation CARDIOVASCULAR: Regular S1 S2, GI: soft, normoactive bowel sounds, : No Renal angle tenderness; EXTREMITIES: No edema, no clubbing, MUSCULOSKELETAL: no muscle wasting NEURO: Awake, no lateralizing sign SKIN: No Rash Assessment & Plan Assessment/Plan (1) Hyperlipidemia: (2) Tobacco abuse: (3) Anxiety: (4) Pneumonia: PLAN: Plan Patient is a 68-year-old gentleman who presented with progressive shortness of breath and assessment of acute hypoxic respiratory failure was made. Patient was admitted to the progressive care unit initiated on BiPAP respiratory status worsened necessitating patient being intubated and admitted to the intensive care unit 1. Acute hypoxic respiratory failure ? Secondary to community-acquired pneumonia. Patient was placed initially on BiPAP clinical condition deteriorated resulting in patient being intubated and admitted to the intensive care unit. Vent management deferred to senior lead project manager ? 11/13/2023;Patient seen successfully weaned off the vent. Patient scheduled to undergo bedside speech eval ?11/14/2023;Patient was weaned off the vent the day prior. Was kept n.p.o. overnight in anticipation of speech eval -11/15/2023;Patient was noted to have mild dysphagia. Speech therapy recommended Puree Textures and Thin Liquids and continued speech therapy as outpatient as well as GI consult 2. Septic shock ? Secondary to patient pneumonia treated per protocol with IV fluid resuscitation broad-spectrum antibiotic therapy after cultures have been sent as well as 2 pressors Levophed and vasopressin ? 11/13/2019 2470 patient MRSA PCR nasal screen came back positive sputum cultures so far unremarkable patient however did respond to treatment we will continue with current antibiotic therapy Case discussed with senior lead project manager 3. Dyslipidemia ? Patient is on simvastatin plan is to resume following patient's extubation 4. Tobacco dependence ? Patient had apparently been counseled on cessation prior to his intubation ? 11/13/2023; counseled on cessation 5. Depression with anxiety ? Patient is on bupropion, clonazepam as well as risperidone at night and trazodone for sleep 6. DVT prophylaxis ? SC Lovenox 7. Physical deconditioning ? Requested for PT OT eval and social services designee to assist with discharge planning ? . Plan is for patient to be discharged to group home facility after family picks 1 and insurance approves patient stay Time spent in the patient's overall evaluation,decision-making process, review of diagnostic data, adjustment of management, discussion with other providers, nursing nursing and ancillary staff involved in patient's care documentation 36 Minutes Charges/Coding Visit Charges Inpatient E&M: 62994 Subs Hosp L2
[2023-11-15] MEDS: Enoxaparin 40 MG/0.4 ML Syringe SC (10:26)
[2023-11-15] MEDS: Aspirin 81 MG TAB.CHEW PO (10:26)
--- NOTE | 2023-11-15 11:10 | RAD_ITS ---
INDICATION: increased wob EXAMINATION/TECHNIQUE: X-RAY - XR Chest 1 View COMPARISON: Prior study dated: 11/11/2023 FINDINGS: LINES/DEVICES: Endotracheal tube, nasogastric tube and right internal jugular central venous catheter have been removed. LUNGS: Patchy infiltrates in the right perihilar and lower lung increased since previous exam. No evidence of pleural effusions. MEDIASTINUM AND CARDIOVASCULAR STRUCTURES: Stable cardiomediastinal silhouette. BONES AND SOFT TISSUES: Unremarkable. RAD/Chest 1 View (Portable) IMPRESSION: Right lung infiltrate increased since the previous exam. Electronically Signed: Sg Zavala MD at 12:10 EDT ,
[2023-11-15] MEDS: Ipratropium/Albuterol Sulfate 3 ML AMPUL.NEB INHALATION ×2 (11:17→19:05)
[2023-11-15] MEDS: Vancomycin HCl 1,250 MG in 0.9% Normal Saline (250mL Bag) 250 ML 167 MG IV ×2 (12:55→21:20)
--- NOTE | 2023-11-15 13:17 | CASEMGMT ---
Social Work SW called pt's daughter in regard to skilled nursing choices. She will be here about 5pm today and will review the SNF list left for her then, she states however she is not very familiar w/the facilities in this area. SW inquired if she would like a SNF list for [place], as this is where she lives. She states she would and mentioned [facility] as being down the street. SW created in [facility] a list of nursing homes in the [facility], in pt's insurance and complete w/quality and resource use data--[facility] is on the list. SW left the [place] list along w/a copy of the [place] list in pt's room for daughter for when she comes in, SW let pt's RN know the lists are there as well. SW did put the SW on Friday's telephone number on the list, and did ask the daughter on the phone to choose a few options. SW to follow up on Friday w/daughter for choices. SUKHDEV Franco
[2023-11-15 14:30] LABS: Allen Test Positive; Base Excess 6 mmol/L (-2 to +2); Bicarbonate 28.3 mmol/L (22-26); Blood Gas Specimen Type ART; Mode Not entered; O2 Delivery Device Cannula; PO2 63 mmHG (75-100); SITE L Radial; SO2 94 % (95-99); Total Carbon Dioxide 29 mmol/L; pCO2 33.6 mmHg (35-45); pH 7.53 (7.35-7.45)
[2023-11-15] MEDS: Furosemide 100 MG/10 ML Vial 80 MG IV (15:00)
[2023-11-15] MEDS: traZODone 50 MG Tablet PO (21:11)
[2023-11-15] MEDS: Atorvastatin Calcium 20 MG Tablet PO (21:11)
[2023-11-15] MEDS: Nystatin Powder 15gm Bottle 1 APPLIC TOPICAL (21:21)
[2023-11-16] VITALS (27 sets, daily range): BP systolic 107–163; BP diastolic 20–91; PULSE 88–127; RESP 18–30; TEMP 36.2–36.5; O2SAT 90–97; BMI 25.7
[2023-11-16] MEDS: Ipratropium/Albuterol Sulfate 3 ML AMPUL.NEB INHALATION ×4 (03:41→19:17)
[2023-11-16] MEDS: buPROPion 100 MG Tablet PO ×3 (05:24→21:43)
[2023-11-16] MEDS: Piperacil/Tazobactam 3.375 GM in 0.9% Normal Saline (50mL MB+) 50 ML IV ×3 (05:28→23:39)
[2023-11-16 05:33] LABS: Absolute Lymphocyte Count 0.48 X10^3/uL (0.83-4.51); Absolute Neutrophil Count 4.7 X10^3/uL (2.0-7.7); Basophil# 0.01 X10^3/uL; Basophil% 0.2 % (0-1); Hematocrit 37.5 % (40-54); Hemoglobin 12.1 g/dL (13.0-16.5); Lymphocyte # 0.48 X10^3/ul (0.83-4.51); Mean Corp Hgb Conc 32.3 g/dL (32-36); Mean Corpuscular Hgb 29.7 pg (27.0-32.0); Mean Corpuscular Volume 92.1 fL (80-94); Mean Platelet Vol. 12.7 fl (6.2-12.0); Monocyte% 8.3 % (0-10); NRBC Flagged by Analyzer 0 % (0-5); Neutrophil # 4.73 X10^3/uL (2.7-7.7); Neutrophil % 78.5 % (47-70); POSITIVE COUNT YES; POSITIVE DIFFERENTIAL YES; POSITIVE MORPHOLOGY YES; Platelet Count 108 K/mm3 (150-450); RBC Distribution Width CV 13.5 % (11.6-14.6); Red Blood Count 4.07 M/mm3 (4.6-6.2)
[2023-11-16 05:35] LABS: Differential Indicated SCAN CRITERIA MET
[2023-11-16 06:01] LABS: Anion Gap 5 (5-15); BUN 34 mg/dL (7-18); BUN/Creat Ratio 40.5 RATIO (10-20); Calcium,Total 8.3 mg/dL (8.5-10.1); Chloride 106 mmol/L (98-107); Creatinine, Serum 0.84 mg/dL (0.70-1.30); EST Glomerular Filtration Rate 96 mL/min (>60); Est Glom Filt Rate - Afr Amer 116 mL/min (>60); Estimated Creatinine Clearance 84.49 ml/min; Glucose 244 mg/dL (74-106); Potassium 3.3 mmol/L (3.5-5.1); Sodium Level 144 mmol/L (136-145)
--- NOTE | 2023-11-16 07:20 | PCM.PN.HOSP ---
Reason for Visit Reason for Visit: Diagnoses Hyperlipidemia, unspecified (11/11/23) Anxiety disorder, unspecified (11/11/23) Pneumonia, unspecified organism (11/11/23) Acute respiratory failure with hypoxia (11/11/23) Tobacco use (11/11/23) Subjective Subjective Patient went into respiratory distress the day prior did receive 80 mg of Lasix with 2.5 L of urine output. Patient remained stable this a.m. Ordered 2D echo. Diagnostic data significant for hypokalemia of 3.3 replacement given Objective Data Objective Data Vital Signs: Vital Signs Temp Pulse Resp BP Pulse Ox O2 Del Method O2 Flow Rate 97.2 F L 106 H 22 H 140/91 H 91 High Flow 8 11/16/23 05:00 11/16/23 05:00 11/16/23 05:00 11/16/23 05:00 11/16/23 05:00 11/16/23 05:00 11/16/23 05:00 FiO2 30 11/13/23 07:00 Oxygen Flow Rate (L/min) 8 Oxygen Delivery Method High Flow Weight: 81.7 kg Body Mass Index (BMI) 25.7 Intake & Output: Intake and Output for Last 24 Hours 11/14/23 11/15/23 11/16/23 23:59 23:59 23:59 Intake Total 647.5 / 887.5 1492 / 1492 300 / 300 Output Total 3100 / 3425 4175 / 4175 350 / 350 Balance -2452.5 / -2537.5 -2683 / -2683 -50 / -50 Lab / Micro Data 11/16/23 04:10 11/16/23 04:10 Labs: Laboratory Results - last 24 hr 11/16/23 04:10: WBC 6.0, RBC 4.07 L, Hgb 12.1 L, Hct 37.5 L, MCV 92.1, MCH 29.7, MCHC 32.3, RDW Std Deviation 46.0 H, RDW Coeff of Jackie 13.5, Plt Count 108 L, MPV 12.7 H, Immature Gran % (Auto) 5.000 H, Neut % (Auto) 78.5 H, Lymph % (Auto) 8.0 L, Mcnairy % (Auto) 8.3, Eos % (Auto) 0.0, Baso % (Auto) 0.2, Absolute Neuts (auto) 4.7, Absolute Lymphs (auto) 0.48 L, Nucleated RBC % 0, Sodium 144, Potassium 3.3 L, Chloride 106, Carbon Dioxide 32.0, Anion Gap 5, BUN 34 H, Creatinine 0.84, Estim Creat Clear Calc 84.49, Est GFR (MDRD) Af Amer 116, Est GFR (MDRD) Non-Af 96, BUN/Creatinine Ratio 40.5 H, Glucose 244 H, Calcium 8.3 L Micro: Microbiology 11/10/23 22:49 Blood Culture (Wb) - Anticubital Left Blood Culture - Final No growth in 5 days. 11/11/23 03:55 Sputum, Induced/Lukens Gram Stain - Final 11/11/23 03:55 Sputum, Induced/Lukens Respiratory Culture - Final Mixed normal respiratory delilah. No Streptococcus pneumoniae, beta-hemolytic Streptococcus or Staphylococcus aureus isolated. 11/10/23 22:20 Urine, Clean Catch Urine Culture - Final Mixed Gram Positive Organisms 11/11/23 07:45 Nasal Secretion MRSA (PCR) - Final Meth. resistant Staph. aureus 11/10/23 22:20 Mucosa - Nasopharyngeal SARS-CoV-2, Influenza & RSV (PCR) - Final ABG Data ABG results: ABG 11/15/23 14:25 Specimen Type ART Sample Site L Radial pH 7.53 H Bicarbonate Actual 28.3 H Total CO2 29 Base Excess 6 H O2 Saturation 94 L O2 % 5.0 ABG pCO2 33.6 L ABG pO2 63 L Danis Test Positive O2 Delivery Device Cannula Vent Mode Not entered Radiography Diagnostic Testing: Radiology Impression Chest X-Ray 11/15/23 11:10 IMPRESSION: Right lung infiltrate increased since the previous exam. Electronically Signed: Sg Zavala MD at 12:10 EDT , Physical Exam Narrative GENERAL: Of the vent, in no apparent HEENT: Atraumatic; normocephalic EYES; Anicteric, Normal Conjunctiva NECK; supple, normal thyroid, RESPIRATORY: Diminished to auscultation CARDIOVASCULAR: Regular S1 S2, GI: soft, normoactive bowel sounds, : No Renal angle tenderness; EXTREMITIES: No edema, no clubbing, MUSCULOSKELETAL: no muscle wasting NEURO: Awake, no lateralizing sign SKIN: No Rash Assessment & Plan Assessment/Plan (1) Hyperlipidemia: (2) Tobacco abuse: (3) Anxiety: (4) Pneumonia: PLAN: Plan Patient is a 68-year-old gentleman who presented with progressive shortness of breath and assessment of acute hypoxic respiratory failure was made. Patient was admitted to the progressive care unit initiated on BiPAP respiratory status worsened necessitating patient being intubated and admitted to the intensive care unit 1. Acute hypoxic respiratory failure ? Secondary to community-acquired pneumonia. Patient was placed initially on BiPAP clinical condition deteriorated resulting in patient being intubated and admitted to the intensive care unit. Vent management deferred to [employer] police ? 11/13/2023;Patient seen successfully weaned off the vent. Patient scheduled to undergo bedside speech eval ?11/14/2023;Patient was weaned off the vent the day prior. Was kept n.p.o. overnight in anticipation of speech eval -11/15/2023;Patient was noted to have mild dysphagia. Speech therapy recommended Puree Textures and Thin Liquids and continued speech therapy as outpatient as well as GI consult 2. Septic shock ? Secondary to patient pneumonia treated per protocol with IV fluid resuscitation broad-spectrum antibiotic therapy after cultures have been sent as well as 2 pressors Levophed and vasopressin ? 11/13/2023atient MRSA PCR nasal screen came back positive sputum cultures so far unremarkable patient however did respond to treatment we will continue with current antibiotic therapy Case discussed with [employer] police ? 11/16/2023; septic shock resolved 3. Acute congestive heart failure with preserved ejection ? Patient went into respiratory distress the day prior given 80 mg of Lasix with 2.5 L of urinary output. Echo echo obtained on 10/12/2023 demonstrated EF of 60 4. Tobacco dependence ? Patient had apparently been counseled on cessation prior to his intubation ? 11/13/2023; counseled on cessation 5. Depression with anxiety ? Patient is on bupropion, clonazepam as well as risperidone at night and trazodone for sleep 6. Dyslipidemia ?Patient is on statin therapy, continued at home dose 7. Physical deconditioning ? Requested for PT OT eval and high school social studies tutor to assist with discharge planning ? . Plan is for patient to be discharged to care home facility after family picks 1 and insurance approves patient stay 8. Hypokalemia ? Corrected per protocol repeat labs ordered for monitoring 9. DVT prophylaxis ? On enoxaparin 10. Hypokalemia ? Secondary to diuretic therapy corrected per protocol, repeat K ordered for a.m. Time spent in the patient's overall evaluation,decision-making process, review of diagnostic data, adjustment of management, discussion with other providers, nursing nursing and ancillary staff involved in patient's care documentation 50 Minutes Charges/Coding Visit Charges Inpatient E&M: 43659 Subs Hosp L3
[2023-11-16] MEDS: Potassium Chloride 10mEq/100mL 10 MEQ/100 ML IV.SOLN. 100 MEQ IV BOLUS ×4 (08:14→13:46)
[2023-11-16] MEDS: Aspirin 81 MG TAB.CHEW PO (09:51)
[2023-11-16] MEDS: RisperiDONE 1 MG Tablet 2 MG PO ×2 (09:51→21:43)
[2023-11-16] MEDS: Enoxaparin 40 MG/0.4 ML Syringe SC (09:51)
[2023-11-16] MEDS: Nystatin Powder 15gm Bottle 1 APPLIC TOPICAL ×2 (09:52→21:49)
[2023-11-16 10:22] LABS: Vancomycin, Trough Level 13.9 ug/mL (5.0-15.0)
[2023-11-16] MEDS: Vancomycin HCl 1,250 MG in 0.9% Normal Saline (250mL Bag) 250 ML 167 MG IV ×2 (11:41→21:41)
[2023-11-16 17:10] LABS: Pathologist Review May foll
[2023-11-16 17:10] LABS: Lymphocyte 20 % (19-41); Metamyelocyte 2 % (0-1); Monocyte 12 % (0-10); Myelocyte 1 % (0-0); Neutrophil-Segmented 65 % (47-70)
[2023-11-16 17:12] LABS: Absolute Neutrophil Count 3.9 X10^3/uL (2.0-7.7)
[2023-11-16 17:13] LABS: Anisocytosis RARE; Platelet Estimate MOD DEC (ADEQ); Red Cell Morphology N CHROM NORMAL (NORM C&C)
--- NOTE | 2023-11-16 17:57 | PCM.RX.CS ---
Consult Antibiotic Management Pharmacy has been consulted to manage selected antibiotic: Vancomycin Type of Intervention Type of Consult: Follow-up Suspected Infection Suspected Infection: Pneumonia Labs Labs: Sodium 144 mmol/L (136-145) 11/16/23 04:10 Potassium 3.3 mmol/L (3.5-5.1) L 11/16/23 04:10 Chloride 106 mmol/L (98-107) 11/16/23 04:10 Carbon Dioxide 32.0 mmol/L (21.0-32.0) 11/16/23 04:10 Anion Gap 5 (5-15) 11/16/23 04:10 BUN 34 mg/dL (7-18) H 11/16/23 04:10 Creatinine 0.84 mg/dL (0.70-1.30) 11/16/23 04:10 Est GFR (MDRD) Af Amer 116 mL/min (>60) 11/16/23 04:10 Est GFR (MDRD) Non-Af 96 mL/min (>60) 11/16/23 04:10 BUN/Creatinine Ratio 40.5 RATIO (10-20) H 11/16/23 04:10 Glucose 244 mg/dL (74-106) H 11/16/23 04:10 Vancomycin Trough 13.9 ug/mL (5.0-15.0) 11/16/23 09:05 Microbiology Microbiology: Microbiology 11/10/23 22:49 Blood Culture (Wb) - Anticubital Left Blood Culture - Final No growth in 5 days. 11/11/23 03:55 Sputum, Induced/Lukens Gram Stain - Final 11/11/23 03:55 Sputum, Induced/Lukens Respiratory Culture - Final Mixed normal respiratory delilah. No Streptococcus pneumoniae, beta-hemolytic Streptococcus or Staphylococcus aureus isolated. 11/10/23 22:20 Urine, Clean Catch Urine Culture - Final Mixed Gram Positive Organisms 11/11/23 07:45 Nasal Secretion MRSA (PCR) - Final Meth. resistant Staph. aureus 11/10/23 22:20 Mucosa - Nasopharyngeal SARS-CoV-2, Influenza & RSV (PCR) - Final Goal Trough Goal Trough: 15-20 mcg/mL Pharmacy Plan for Drug Dosing Pharmacy Plan for Drug Dosing: VANCOMYCIN LEVEL RECEIVED Current Vancomycin Dose: 1250mg q12h (at 10 and 22) Number of Doses Received: x4 of current dose Vancomycin Level: 13.9 (drawn 11/15 at 0905) Hours Since Last Dose: 12 hours since last 1250mg dose on 11/14 at 2120 Renal Function: SrCr 0.84 Renal Function Trend: SrCr increasing Lab/Micro: Vancomycin Plan/Comments: resulted trough of 13.9 is slightly below the ordered goal trough range of 15-20. due to patient's increasing SrCr, hesitant to increase dose. recommend continuing current dose of 1250mg q12h. no trough needed, medication ordered to ne on 11/17/23 at 2359 Pending Level: none Pharmacy Service will continue to monitor and adjust dosing as required. Follow-Up Labs Follow-Up Labs: Trough: Vancomycin ( none. med ordered to dc 11/17/23 at 2359)
[2023-11-16] MEDS: traZODone 50 MG Tablet PO (21:42)
[2023-11-16] MEDS: Atorvastatin Calcium 20 MG Tablet PO (21:42)
[2023-11-16] MEDS: guaiFENesin 10 ML UDC (200MG/10ML) PO (21:53)
--- NOTE | 2023-11-16 22:14 | PN.CC_ITS ---
Objective Data Objective Data Vital Signs: Vital Signs Last response 3 Temperature 36.2 C L 11/16/23 21:00 Temperature Source Temporal 11/16/23 21:00 Pulse Rate 110 H 11/16/23 21:00 Pulse Strength Normal (2+) 11/16/23 21:51 Respiratory Rate 29 H 11/16/23 21:00 Respiratory Effort Non-Labored 11/16/23 20:40 Respiratory Depth Normal 11/16/23 20:40 Respiratory Pattern Tachypnea 11/16/23 20:40 Blood Pressure 126/78 H 11/16/23 21:00 Blood Pressure Mean 94 11/16/23 21:00 Blood Pressure Source Monitor 11/16/23 21:00 Blood Pressure Position Semi-Fowlers 11/16/23 21:00 Blood Pressure Location Left Arm 11/16/23 21:00 Pulse Ox 95 11/16/23 21:00 Oxygen Delivery Method High Flow 11/16/23 21:00 Oxygen Flow Rate (L/min) 4 11/16/23 21:00 Fraction of Inspired Oxygen (FIO2) 30 11/13/23 07:00 I&O: I&O Last 24 Hours 3 11/15/23 11/16/23 11/16/23 23:59 11:59 23:59 Intake Total 877 / 1492 550 / 1295 745 / 1295 Output Total 3700 / 4175 350 / 1100 750 / 1100 Balance -2823 / -2683 200 / 195 -5 / 195 I&O: Total Stay 3 11/10/23 20:52 thru 11/16/23 20:48 Intake Total 12350.56 Output Total 08690 Balance 3869.56 Current Meds Ordered / Administered: Current meds ordered / Administered 3 Generic Name Dose Route Start Last Admin Trade Name Freq PRN Reason Stop Dose Admin Acetaminophen 650 mg 11/11/23 10:07 11/12/23 10:43 Acetaminophen 650 Mg/20 Ml Udc GT 650 mg Q6H PRN PRN Administration FEVER Albuterol/Ipratropium 3 ml 11/11/23 08:15 11/16/23 19:17 Ipratropium/Albuterol Sulfate 3 Ml Ampul.Neb INHALATION 3 ml Q6H.RT KATHY Administration Aspirin 81 mg 11/12/23 08:00 11/16/23 09:51 Aspirin 81 Mg Tab.Chew PO 81 mg BREAKFAST KATHY Administration Atorvastatin Calcium 20 mg 11/11/23 22:00 11/16/23 21:42 Atorvastatin Calcium 20 Mg Tablet PO 20 mg 2200 KATHY Administration Bupropion HCl 100 mg 11/14/23 15:30 11/16/23 21:43 Bupropion 100 Mg Tablet PO 100 mg TID KATHY Administration Clonazepam 0.5 mg 11/14/23 14:31 11/14/23 21:45 Clonazepam 0.5 Mg Tablet PO 0.5 mg Q8H PRN PRN Administration ANXIETY Enoxaparin Sodium 40 mg 11/11/23 10:00 11/16/23 09:51 Enoxaparin 40 Mg/0.4 Ml Syringe SC 40 mg DAILY KATHY Administration Guaifenesin 10 ml 11/16/23 06:31 11/16/23 21:53 Guaifenesin 10 Ml Udc (200mg/10ml) PO 10 ml Q4H PRN PRN Administration COUGH Sodium Chloride 250 mls @ 15 mls/hr 11/11/23 04:11 11/15/23 20:50 IV Infused .[id number] PRN Infusion Additional IVPB Infusion Sodium Chloride 250 mls @ 15 mls/hr 11/11/23 04:11 IV .[id number] PRN Saline Flush Piperacillin Sod/Tazobactam 50 mls @ 12.5 mls/hr 11/11/23 14:00 11/16/23 17:54 Sod 3.375 gm/ Sodium Chloride IV 11/17/23 22:01 Infused Q8 KATHY Infusion Vancomycin IV-PHARMACY TO DOSE 500 mls @ 250 mls/hr 11/11/23 07:19 1 each/ Sodium Chloride IV 11/17/23 23:59 PRN PRN Rx to Dose Protocol Vancomycin HCl 1,250 mg/ 275 mls @ 167 mls/hr 11/14/23 10:00 11/16/23 21:41 Sodium Chloride IV 11/17/23 23:59 167 mls/hr Q12H KATHY Administration Methylprednisolone 40 mg 11/15/23 10:00 11/16/23 09:52 Methylprednisolone 40 Mg/Ml Vial IV 40 mg DAILY KATHY Administration Nystatin 1 applic 11/11/23 22:00 11/16/23 21:49 Nystatin Powder 15gm Bottle TOPICAL 1 applic BID KATHY Administration Protocol Ondansetron HCl 4 mg 11/11/23 04:10 Ondansetron 4 Mg/2 Ml Vial IV Q8H PRN PRN NAUSEA/VOMITING Risperidone 2 mg 11/14/23 15:30 11/16/23 21:43 Risperidone 1 Mg Tablet PO 2 mg BID KATHY Administration Protocol Sodium Chloride 10 - 40 ml 11/11/23 04:11 11/14/23 14:23 0.9% Saline Lock 10 Ml Syringe IV 20 ml UD PRN Administration SALINE FLUSH Trazodone HCl 50 mg 11/14/23 22:00 11/16/23 21:42 Trazodone 50 Mg Tablet PO 50 mg QHS KATHY Administration Lab / Micro Data 11/16/23 04:10 11/16/23 04:10 Labs: Laboratory Results - last 24 hr 11/13/23 04:40: Absolute Neuts (auto) 3.9, Absolute Lymphs (auto) 1.20, Diff Path Review June, Platelet Estimate MOD DEC, RBC Morphology N CHROM, Anisocytosis RARE 11/16/23 04:10: WBC 6.0, RBC 4.07 L, Hgb 12.1 L, Hct 37.5 L, MCV 92.1, MCH 29.7, MCHC 32.3, RDW Std Deviation 46.0 H, RDW Coeff of Jackie 13.5, Plt Count 108 L, MPV 12.7 H, Immature Gran % (Auto) 5.000 H, Neut % (Auto) 78.5 H, Lymph % (Auto) 8.0 L, Ramsey % (Auto) 8.3, Eos % (Auto) 0.0, Baso % (Auto) 0.2, Absolute Neuts (auto) 4.7, Absolute Lymphs (auto) 0.48 L, Total Counted 100, Neutrophils % (Manual) 65, Lymphocytes % (Manual) 20, Monocytes % (Manual) 12 H, Metamyelocytes % 2 H, Myelocytes % 1 H, Nucleated RBC % 0, Sodium 144, Potassium 3.3 L, Chloride 106, Carbon Dioxide 32.0, Anion Gap 5, BUN 34 H, Creatinine 0.84, Estim Creat Clear Calc 84.49, Est GFR (MDRD) Af Amer 116, Est GFR (MDRD) Non-Af 96, BUN/Creatinine Ratio 40.5 H, Glucose 244 H, Calcium 8.3 L 11/16/23 09:05: Vancomycin Trough 13.9 Micro: Microbiology 11/10/23 22:49 Blood Culture (Wb) - Anticubital Left Blood Culture - Final No growth in 5 days. Assessment and Plan . Assessment and plan: Patient seen and examined Chart and data reviewed He appears chronically ill Breathing 4 LPM O2 at rest - NAD, but persistent tachypnea Images and other data reviewed EXAM GEN looks chronically ill, NAD VS as above HEENT O2 N/C COR RRR CHEST markedly diminished ABD soft EXT minimal edema CHRIS globally weak ASSESSMENT 1. Dyspnea / hypoxemia 2. COPD / tobacco use 3. Infectious PNA TREATMENT PLAN -supplemental O2 -remains on ABX -inhaled BD -slow steroid taper -VTE ppx The entirety of this encounter was done via Telemedicine
[2023-11-17] VITALS (24 sets, daily range): BP systolic 106–167; BP diastolic 68–126; PULSE 87–125; RESP 19–27; TEMP 36.2–36.9; O2SAT 90–97
--- NOTE | 2023-11-17 00:20 | PCM.HOSP.N ---
Hospitalist Note Patient with onset notable diarrhea, will obtain cdiff/stool studies.
[2023-11-17] MEDS: Ipratropium/Albuterol Sulfate 3 ML AMPUL.NEB INHALATION ×4 (01:04→18:53)
[2023-11-17] MEDS: buPROPion 100 MG Tablet PO ×3 (05:37→22:27)
[2023-11-17] MEDS: Piperacil/Tazobactam 3.375 GM in 0.9% Normal Saline (50mL MB+) 50 ML IV ×3 (05:40→23:39)
[2023-11-17 07:00] LABS: Absolute Lymphocyte Count 0.51 X10^3/uL (0.83-4.51); Absolute Neutrophil Count 5.7 X10^3/uL (2.0-7.7); Basophil# 0.01 X10^3/uL; Basophil% 0.1 % (0-1); Hematocrit 39.3 % (40-54); Hemoglobin 12.4 g/dL (13.0-16.5); Lymphocyte # 0.51 X10^3/ul (0.83-4.51); Lymphocyte % 7.4 % (19-41); Mean Corp Hgb Conc 31.6 g/dL (32-36); Mean Corpuscular Hgb 29.8 pg (27.0-32.0); Mean Corpuscular Volume 94.5 fL (80-94); Mean Platelet Vol. 12.1 fl (6.2-12.0); Monocyte# 0.39 X10^3/uL; Monocyte% 5.6 % (0-10); NRBC Flagged by Analyzer 0 % (0-5); Neutrophil # 5.67 X10^3/uL (2.7-7.7); POSITIVE DIFFERENTIAL YES; Platelet Count 133 K/mm3 (150-450); RBC Distribution Width CV 13.8 % (11.6-14.6); RBC Distribution Width SD 47.8 fl (35.1-43.9); Red Blood Count 4.16 M/mm3 (4.6-6.2); White Blood Count 6.9 K/mm3 (4.4-11.0)
[2023-11-17] MEDS: RisperiDONE 1 MG Tablet 2 MG PO ×2 (08:52→22:25)
[2023-11-17] MEDS: Aspirin 81 MG TAB.CHEW PO (08:52)
[2023-11-17] MEDS: Enoxaparin 40 MG/0.4 ML Syringe SC (08:53)
[2023-11-17] MEDS: Vancomycin HCl 1,250 MG in 0.9% Normal Saline (250mL Bag) 250 ML 167 MG IV ×2 (08:54→21:05)
--- NOTE | 2023-11-17 09:23 | PN.CC_ITS ---
Assessment & Plan Assessment/Plan (1) Acute hypoxemic respiratory failure: PLAN: Plan RECOMMENDATIONS: 1. Continue supplemental oxygen to maintain saturations at or above 90%. 2. Dietary advancement as tolerated. 3. Continue antimicrobials to complete 7 days of therapy. 4. Continue bronchodilators and steroids. Plan for steroid taper at discharge. 5. Encourage incentive spirometer use and mobilize patient as tolerated. 6. Continue appropriate DVT prophylaxis. IMPRESSIONS: 1. Acute hypoxemic respiratory failure The patient presented to the hospital after falling in his home environment in the setting of complaints of shortness of breath and cough. Ultimately, the patient decompensated from a respiratory perspective and was intubated in the emergency department. He has radiographic evidence of a dense right lower lobe consolidation, concerning for pneumonia. The patient has been maintained on broad-spectrum antimicrobial therapy. In light of his reported history of COPD, we will plan to continue scheduled bronchodilators and steroids. With the aforementioned interventions, the patient's respiratory status improved and he was able to be extubated on November 12. Plan to continue supplemental oxygen to maintain saturations at or above 90%. Encourage incentive spirometer use and mobilize patient as tolerated. 2. Septic shock The patient presented to the hospital with sepsis due to probable pneumonia with acute sepsis related organ dysfunction as evidenced by altered mental status, lactic acidemia and respiratory failure requiring invasive mechanical ventilatory support. The patient went on to develop fluid refractory hypotension, necessitating vasopressor support. The patient was able to be weaned off of Levophed and remains hemodynamically stable. Plan to continue antibiotics to complete 7 days of therapy. 3. Chronic tobacco dependency/history of COPD of unknown severity/anxiety/depression/hyperlipidemia Complicates care, management, recovery and prognosis. Continue supportive measures as noted above. This note was generated with [employer] dictation software. It may contain incorrect words, spelling, and punctuation that were not noted in checking the note before signing. Subjective Subjective The patient was seen and examined at the bedside this morning. Events from the last 24 hours have been reviewed. The patient is currently afebrile, hemodynamically stable and maintaining appropriate oxygen saturations on 4 L/min via nasal cannula. The patient has no specific complaints this morning. He is currently documented to be overall net +3.9 L for the hospitalization. White blood cell count is normal. Hemoglobin is stable. Objective Data Objective Data The patient's most recent lab work, culture data and imaging studies have all been personally reviewed. Blood, urine and sputum cultures have not demonstrated any growth to date. Vital Signs: Vital Signs Temp Pulse Resp BP Pulse Ox O2 Del Method O2 Flow Rate 97.4 F L 123 H 24 H 133/76 H 90 Nasal Cannula 4 11/17/23 09:04 11/17/23 09:04 11/17/23 09:04 11/17/23 09:04 11/17/23 09:04 11/17/23 09:04 11/17/23 09:04 FiO2 30 11/13/23 07:00 Oxygen Flow Rate (L/min) 4 Oxygen Delivery Method Nasal Cannula Weight: 180 lb 1.883 oz Body Mass Index (BMI) 25.7 Intake & Output: Intake and Output for Last 24 Hours 11/15/23 11/16/23 11/17/23 23:59 23:59 23:59 Intake Total 1492 / 1492 1690 / 1690 50 / 50 Output Total 4175 / 4175 1500 / 1500 Balance -2683 / -2683 190 / 190 50 / 50 Lab / Micro Data Attestation: I reviewed the patient's lab results. 11/17/23 05:47 11/16/23 04:10 Labs: Laboratory Results - last 24 hr 11/13/23 04:40: Absolute Neuts (auto) 3.9, Absolute Lymphs (auto) 1.20, Diff Path Review June, Platelet Estimate MOD DEC, RBC Morphology N CHROM, Anisocytosis RARE 11/16/23 04:10: Total Counted SUPERVISOR CELL MAINTENANCE, Neutrophils % (Manual) 65, Lymphocytes % (Manual) 20, Monocytes % (Manual) 12 H, Metamyelocytes % 2 H, Myelocytes % 1 H 11/16/23 09:05: Vancomycin Trough 13.9 11/17/23 05:47: WBC 6.9, RBC 4.16 L, Hgb 12.4 L, Hct 39.3 L, MCV 94.5 H, MCH 29.8, MCHC 31.6 L, RDW Std Deviation 47.8 H, RDW Coeff of Jackie 13.8, Plt Count 133 L, MPV 12.1 H, Immature Gran % (Auto) 4.900 H, Neut % (Auto) 82.0 H, Lymph % (Auto) 7.4 L, Antelope % (Auto) 5.6, Eos % (Auto) 0.0, Baso % (Auto) 0.1, Absolute Neuts (auto) 5.7, Absolute Lymphs (auto) 0.51 L, Nucleated RBC % 0 Micro: Microbiology 11/17/23 00:24 Stool Enteric Bacteriology - Final 11/17/23 00:24 Stool Clostridioides difficile (PCR) - Final 11/10/23 22:49 Blood Culture (Wb) - Anticubital Left Blood Culture - Final No growth in 5 days. 11/11/23 03:55 Sputum, Induced/Lukens Gram Stain - Final 11/11/23 03:55 Sputum, Induced/Lukens Respiratory Culture - Final Mixed normal respiratory delilah. No Streptococcus pneumoniae, beta-hemolytic Streptococcus or Staphylococcus aureus isolated. 11/10/23 22:20 Urine, Clean Catch Urine Culture - Final Mixed Gram Positive Organisms 11/11/23 07:45 Nasal Secretion MRSA (PCR) - Final Meth. resistant Staph. aureus 11/10/23 22:20 Mucosa - Nasopharyngeal SARS-CoV-2, Influenza & RSV (PCR) - Final Radiography Diagnostic Testing: Radiology Impression Echocardiogram 11/11/23 22:31 Interpretation Summary The estimated ejection fraction is 60 %. No evidence for diastolic dysfunction. Ordering Physician: Yamilka Lzoada Referring Physician: Sam Brower Chi Performed By: Ophelia Lucio RDCS Physical Exam Const alert and no apparent distress General Appearance: cooperative HEENT normocephalic, head/scalp atraumatic and moist oral mucous membranes Eyes PERRL, EOMs intact bilaterally and conjunctivae normal Neck supple General: trachea midline Chest inspection of chest normal Resp normal respiratory effort Auscultation: diminished lung sounds; Negative for rales, rhonchi or wheezes Cardio regular rate and regular rhythm GI normal to inspection, nondistended, normoactive bowel sounds Extremity no clubbing, cyanosis or edema Neuro CN's II-XII intact bilaterally, moves all extremities and no focal motor deficits Psych Mood & Affect: flat affect Charges/Coding Visit Charges Inpatient E&M: 67816 Subs Hosp L2
[2023-11-17] MEDS: Furosemide 40 MG/4 ML Vial IV (10:20)
--- NOTE | 2023-11-17 10:39 | CASEMGMT ---
SW called patient's daughter Anabell to obtain SNF choices. Their 3 preferences are: 1. [facility] 2. [facility] 3. [facility]. SW asked Allison to send a referral to [facility]. SW also answered all of Anabell's questions. Plan: d/c to SNF pending accepting facility and pre-cert. Mary RAINEY
[2023-11-17 10:41] LABS: Phosphorus 2.8 mg/dL (2.5-4.9)
[2023-11-17 10:44] LABS: Anion Gap 5 (5-15); BUN 38 mg/dL (7-18); BUN/Creat Ratio 50.8 RATIO (10-20); Calcium,Total 8.4 mg/dL (8.5-10.1); Chloride 114 mmol/L (98-107); Creatinine, Serum 0.75 mg/dL (0.70-1.30); EST Glomerular Filtration Rate 110 mL/min (>60); Est Glom Filt Rate - Afr Amer 133 mL/min (>60); Estimated Creatinine Clearance 88.72 ml/min; Glucose 219 mg/dL (74-106); Magnesium 2.8 mg/dL (1.6-2.6); Potassium 4.2 mmol/L (3.5-5.1); Sodium Level 148 mmol/L (136-145)
--- NOTE | 2023-11-17 11:55 | CASEMGMT ---
Addendum entered by Loyda Rosario 11/17/23 12:47: [facility] declined patient due to being out of network with insurance. RICARDO Amador, VICE PRESIDENT OF HUMAN RESOURCES Original Note: Social Work Referral sent to [facility] per patient request. RICARDO Amador, VICE PRESIDENT OF HUMAN RESOURCES
--- NOTE | 2023-11-17 12:32 | CASEMGMT ---
ANNABELLE noted in chart patient is more alert and oriented today. SW met with patient. Introduced self and role at [facility]. ANNABELLE explained therapy [facility]. ANNABELLE also told patient SW has been talking with his daughter about where he should go for rehab. SW told patient that his daughter chose a facility that is down the street from her in [place]. Patient said he would prefer to stay in [place]. Patient said his friend has hurt herself so she won't be able to help him much. SW told patient that would be even more reason for him to go somewhere for rehab. Patient is going to try and talk with Malissa to see what she thinks. SW will check back with patient. ANNABELLE called patient's daughter Anabell and let her know above. ANNABELLE also let Anabell know that physician feels patient would be medically ready tomorrow. ANNABELLE let Anabell know SW will keep her updated. Mary Luu SOLUTIONS ARCHITECT CONSULTANT REDD
--- NOTE | 2023-11-17 12:47 | CASEMGMT ---
Social Work Referral sent to [facility] per patient request. Loyda Rosario, MAIL EXAMINER, DICE MAKER
--- NOTE | 2023-11-17 13:55 | CASEMGMT ---
SW checked back in with patient to see if he was able to talk to his friend. Patient said he has not been able to talk with her yet. Patient asked for SW's phone number. SW wrote down SW's name and number for patient. SW asked patient if SW could call his friend to explain what we have been working on. Patient said he wants to talk with her first. SW will check back a little later in the day. Mary RAINEY
[2023-11-17 14:06] LABS: Pathologist Review Reviewed
[2023-11-17] MEDS: Mupirocin Ointment 22gm Tube 1 APPLIC NASAL ×2 (14:24→22:26)
[2023-11-17] MEDS: Nystatin Powder 15gm Bottle 1 APPLIC TOPICAL ×2 (14:25→22:25)
--- NOTE | 2023-11-17 14:46 | CASEMGMT ---
SW went to patient's room and his friend Malissa was present. ANNABELLE introduced self and role at [facility]. Malissa was aware patient needs to go somewhere for rehab. Their choices are 1. [facility] and 2. [facility]. ANNABELLE asked Allison to send a referral to [facility]. Mary Luu MSW REDD
--- NOTE | 2023-11-17 15:20 | CASEMGMT ---
Social Work Referral sent to [facility] per patient request. Loyda Rosario, DE ICER KIT ASSEMBLER, STOKER ERECTOR
--- NOTE | 2023-11-17 19:27 | PN.HOSP_ITS ---
Reason for Visit Reason for Visit: Fall Subjective Subjective Patient is a 68-year-old white male who presented to the emergency department at [facility] on 11/10/2023 after a fall. Patient significant other called EMS after she found him lying on the ground up against the wall. Patient reported that he had some cough and shortness of breath over the past several days prior to presentation but he was unaware of what caused him to fall. His cough had progressively gotten worse. He has a history of long-term tobacco abuse and is still smoking but does not wear oxygen at baseline. CTA of the chest was performed prior to admission and was notable for a right lower lobe pneumonia but negative for PE. Vital signs on presentation showed temperature of 99.2, heart rate 139, blood pressure was 142/121 and pulse ox was 94% on room air. BNP was mildly elevated to 26. He had a leukocytosis of 18,000 and a lactic acid of 3.9. Bilirubin was 2.0. CK was 4138. Troponin was mildly elevated at 93. UA showed leuk esterase and 1+ bacteria. COVID/flu/RSV were unremarkable. Blood, urine, and sputum cultures were collected and the patient was initially placed on BiPAP however he decompensated from a respiratory perspective and was ultimately intubated in the emergency department prior to admission. He was placed on antimicrobial therapy and admitted to the intensive care unit. Pulmonary medicine was consulted and given the fact he had a dense right lower lobe consolidation that was concerning for pneumonia he was maintained on IV antibiotics with vancomycin and Zosyn. Nasal MRSA was positive so vancomycin was continued. Blood cultures were unremarkable. Sputum culture showed only normal respiratory delilah. Patient did develop diarrhea during his hospitalization and he was tested for enteric bacteria and C. difficile both of which were unremarkable. At that time he was started on antidiarrheals. His respiratory status improved to the point where he was able to be extubated on 11/13/2023. Patient states he is slowly feeling better. He was evaluated by speech therapy with a bedside swallow and his diet has been able to be slowly advanced. Patient and his significant other both feel that he will need to go to rehab prior to discharge home. He has been weaned to 4 L nasal cannula and seems to be doing well overall. Objective Data Objective Data Vital Signs: Vital Signs Temp Pulse Resp BP Pulse Ox O2 Del Method O2 Flow Rate 97.6 F L 106 H 20 H 115/91 H 95 Nasal Cannula 4 11/17/23 18:00 11/17/23 18:54 11/17/23 18:54 11/17/23 18:00 11/17/23 18:54 11/17/23 18:54 11/17/23 18:54 FiO2 30 11/13/23 07:00 Oxygen Flow Rate (L/min) 4 Oxygen Delivery Method Nasal Cannula Weight: 81.7 kg Body Mass Index (BMI) 25.7 Intake & Output: Intake and Output for Last 24 Hours 11/15/23 11/16/23 11/17/23 23:59 23:59 23:59 Intake Total 1492 / 1492 1690 / 1690 925 / 925 Output Total 4175 / 4175 1500 / 1500 1300 / 1300 Balance -2683 / -2683 190 / 190 -375 / -375 Lab / Micro Data 11/17/23 05:47 11/17/23 05:47 Labs: Laboratory Results - last 24 hr 11/16/23 04:10: Total Counted BRICK MOLDER HAND, Diff Path Review Reviewed 11/17/23 05:47: WBC 6.9, RBC 4.16 L, Hgb 12.4 L, Hct 39.3 L, MCV 94.5 H, MCH 29.8, MCHC 31.6 L, RDW Std Deviation 47.8 H, RDW Coeff of Jackie 13.8, Plt Count 133 L, MPV 12.1 H, Immature Gran % (Auto) 4.900 H, Neut % (Auto) 82.0 H, Lymph % (Auto) 7.4 L, [place] % (Auto) 5.6, Eos % (Auto) 0.0, Baso % (Auto) 0.1, Absolute Neuts (auto) 5.7, Absolute Lymphs (auto) 0.51 L, Nucleated RBC % 0, Sodium 148 H , Potassium 4.2, Chloride 114 H, Carbon Dioxide 29.0, Anion Gap 5, BUN 38 H, Creatinine 0.75, Estim Creat Clear Calc 88.72, Est GFR (MDRD) Af Amer 133, Est GFR (MDRD) Non-Af 110, BUN/Creatinine Ratio 50.8 H, Glucose 219 H, Calcium 8.4 L , Phosphorus 2.8, Magnesium 2.8 H Micro: Microbiology 11/17/23 00:24 Stool Enteric Bacteriology - Final 11/17/23 00:24 Stool Clostridioides difficile (PCR) - Final 11/10/23 22:49 Blood Culture (Wb) - Anticubital Left Blood Culture - Final No growth in 5 days. 11/11/23 03:55 Sputum, Induced/Lukens Gram Stain - Final 11/11/23 03:55 Sputum, Induced/Lukens Respiratory Culture - Final Mixed normal respiratory delilah. No Streptococcus pneumoniae, beta-hemolytic Streptococcus or Staphylococcus aureus isolated. 11/10/23 22:20 Urine, Clean Catch Urine Culture - Final Mixed Gram Positive Organisms 11/11/23 07:45 Nasal Secretion MRSA (PCR) - Final Meth. resistant Staph. aureus 11/10/23 22:20 Mucosa - Nasopharyngeal SARS-CoV-2, Influenza & RSV (PCR) - Final Physical Exam Const alert, oriented x3, no apparent distress, average body habitus and well nourished; Negative for healthy appearing Constitutional Narrative: Frail-appearing, older, white male, sitting up in bed, appears comfortable currently, nontoxic, does appear older than stated age, significant other at the bedside HEENT head/scalp atraumatic and moist oral mucous membranes HEENT Narrative: Dentures in place, Mallampati 2, no thrush Head and Scalp: normocephalic Resp normal respiratory effort, no retractions, no use of accessory muscles and No clear to auscultation bilaterally Resp Narrative: Crackles at right base Auscultation: Negative for rhonchi or wheezes Cardio regular rate, regular rhythm, S1 normal heart sound, S2 normal heart sound, no murmurs, no rub, no gallops and no clicks GI normal to inspection, nondistended, normoactive bowel sounds, soft to palpation and non-tender Extremity no clubbing, cyanosis or edema Extremity Narrative: Pedal pulses are 2+ Neuro oriented x3, moves all extremities and no focal motor deficits Neuro Narrative: Significant generalized weakness noted with no specific focal deficit Speech: speech normal Psych affect normal Psych Narrative: pleasant Assessment & Plan Assessment/Plan (1) Acute hypoxemic respiratory failure: (2) Pneumonia: (3) Septic shock: PLAN: Plan Acute hypoxic respiratory failure -Patient with dense right lower lobe consolidation -Infectious workup overall only shows oral delilah consistent with aspiration on his culture -Antibiotics to be completed after today -Echo shows normal EF with no evidence of diastolic dysfunction or regional wall motion abnormalities/valvular abnormalities -Heart failure with preserved ejection fraction has been ruled out -Lasix 40 mg IV x 1 dose -Patient has been weaned to 4 L nasal cannula and seems to be demonstrating continued improvement -Continue aggressive pulmonary toilet -Continue to encourage incentive spirometer -Add Acapella -Continue as needed guaifenesin -Discontinue IV steroids and transition to p.o. prednisone 40 daily with slow taper -Patient likely has component of COPD and still smokes -Recommend cessation -Patient currently on 4 L nasal cannula with sats at 95% -Will check ambulatory pulse ox prior to discharge -Pulmonary medicine following-appreciate input Septic shock -Resolved -Secondary to pneumonia as noted above -Patient met criteria with organ dysfunction related to altered mental status, lactic acidosis, thrombocytopenia, respiratory failure requiring intubation and developed fluid refractory hypotension requiring vasopressor support Dysphagia -Speech therapy is following -Diet advanced -Continue compensatory strategies -Will need ongoing speech therapy at discharge Generalized weakness/debility secondary to acute illness -Patient will need rehab after discharge -Placement is pending--> case management/social work lecturer is following Thrombocytopenia -Counts are slowly recovering -Likely related to septic shock Hypernatremia/hyperchloremia -Has fluctuated -Lasix as above -Recheck in a.m. Hyperlipidemia -Continue home statin therapy Tobacco abuse -Patient with ongoing tobacco abuse -Recommend cessation -Patient voices understanding Depression/anxiety -Continue home Wellbutrin -Continue home risperidone -Continue home trazodone DVT prophylaxis -Continue subcu Lovenox CODE STATUS Full code Charges/Coding Visit Charges Inpatient E&M: 07235 Subs Hosp L2
[2023-11-17] MEDS: traZODone 50 MG Tablet PO (22:25)
[2023-11-17] MEDS: Atorvastatin Calcium 20 MG Tablet PO (22:26)
[2023-11-17] MEDS: Loperamide 2 MG Capsule PO (23:39)
[2023-11-18] VITALS (10 sets, daily range): BP systolic 109–130; BP diastolic 63–74; PULSE 91–113; RESP 18–22; TEMP 36.6–36.9; O2SAT 94–98; BMI 25.7
[2023-11-18 06:02] LABS: Absolute Lymphocyte Count 0.69 X10^3/uL (0.83-4.51); Absolute Neutrophil Count 7.2 X10^3/uL (2.0-7.7); Basophil# 0.05 X10^3/uL; Basophil% 0.6 % (0-1); Eosinophil# 0.01 X10^3/uL; Eosinophils% 0.1 % (0-5); Hematocrit 38.7 % (40-54); Lymphocyte # 0.69 X10^3/ul (0.83-4.51); Lymphocyte % 7.7 % (19-41); Mean Corpuscular Hgb 29.7 pg (27.0-32.0); Mean Corpuscular Volume 95.8 fL (80-94); Mean Platelet Vol. 12.4 fl (6.2-12.0); Monocyte# 0.54 X10^3/uL; Monocyte% 6.1 % (0-10); NRBC Flagged by Analyzer 0 % (0-5); Neutrophil # 7.19 X10^3/uL (2.7-7.7); Neutrophil % 80.7 % (47-70); Platelet Count 145 K/mm3 (150-450); RBC Distribution Width CV 13.5 % (11.6-14.6); RBC Distribution Width SD 47.1 fl (35.1-43.9); Red Blood Count 4.04 M/mm3 (4.6-6.2); White Blood Count 8.9 K/mm3 (4.4-11.0)
[2023-11-18] MEDS: buPROPion 100 MG Tablet PO ×3 (06:14→21:04)
[2023-11-18] MEDS: Loperamide 2 MG Capsule PO (06:14)
[2023-11-18 06:30] LABS: ALB/GLOB Ratio 0.8 RATIO (0.9-2.4); AST(SGOT) 36 U/L (15-37); Alanine Aminotransfer ALT/SGPT 174 U/L (16-61); Albumin, Serum 2.3 g/dL (3.2-5.0); Alkaline Phosphatase 99 U/L (45-117); Anion Gap 5 (5-15); BUN 32 mg/dL (7-18); BUN/Creat Ratio 44.1 RATIO (10-20); Calcium,Total 8.1 mg/dL (8.5-10.1); Chloride 110 mmol/L (98-107); Creatinine, Serum 0.72 mg/dL (0.70-1.30); EST Glomerular Filtration Rate 114 mL/min (>60); Est Glom Filt Rate - Afr Amer 138 mL/min (>60); Estimated Creatinine Clearance 88.72 ml/min; Globulin 2.9 g/dL (2.2-4.2); Glucose 246 mg/dL (74-106); Potassium 3.6 mmol/L (3.5-5.1); Protein, Total 5.2 g/dL (6.4-8.2); Sodium Level 143 mmol/L (136-145)
[2023-11-18] MEDS: Ipratropium/Albuterol Sulfate 3 ML AMPUL.NEB INHALATION ×3 (07:05→19:08)
[2023-11-18] MEDS: Aspirin 81 MG TAB.CHEW PO (08:18)
[2023-11-18] MEDS: Enoxaparin 40 MG/0.4 ML Syringe SC (08:18)
[2023-11-18] MEDS: predniSONE 20 MG Tablet 40 MG PO (08:18)
[2023-11-18] MEDS: RisperiDONE 1 MG Tablet 2 MG PO ×2 (08:19→21:05)
--- NOTE | 2023-11-18 09:47 | PCM.PN.INT ---
Assessment & Plan Assessment/Plan (1) Acute hypoxemic respiratory failure: PLAN: Plan RECOMMENDATIONS: 1. Continue supplemental oxygen to maintain saturations at or above 90%. 2. Continue bronchodilators and steroids. Plan for steroid taper at discharge. 3. Encourage incentive spirometer use and mobilize patient as tolerated. 4. Continue appropriate DVT prophylaxis. 5. Will sign off at this time. Please call with any additional questions. IMPRESSIONS: 1. Acute hypoxemic respiratory failure The patient presented to the hospital after falling in his home environment in the setting of complaints of shortness of breath and cough. Ultimately, the patient decompensated from a respiratory perspective and was intubated in the emergency department. He has radiographic evidence of a dense right lower lobe consolidation, concerning for pneumonia. The patient has now completed a 7-day treatment course of antimicrobials. He has been maintained on scheduled bronchodilators and steroids, on account of his underlying history of COPD. Overall, the patient's respiratory status has improved and he was able to be extubated on November 12. Supplemental oxygen will be continued to maintain saturations at or above 90%. Encourage incentive spirometer use and mobilize patient as tolerated. 2. Septic shock The patient presented to the hospital with sepsis due to probable pneumonia with acute sepsis related organ dysfunction as evidenced by altered mental status, lactic acidemia and respiratory failure requiring invasive mechanical ventilatory support. The patient went on to develop fluid refractory hypotension, necessitating vasopressor support. The patient was able to be weaned off of Levophed and remains hemodynamically stable. The patient has completed a 7-day treatment course of antimicrobials. 3. Chronic tobacco dependency/history of COPD of unknown severity/anxiety/depression/hyperlipidemia Complicates care, management, recovery and prognosis. Continue supportive measures as noted above. This note was generated with [employer] dictation software. It may contain incorrect words, spelling, and punctuation that were not noted in checking the note before signing. Subjective Subjective The patient was seen and examined at the bedside this morning. Events from the last 24 hours have been reviewed. The patient is currently afebrile, hemodynamically stable and maintaining appropriate oxygen saturations on 3 L/min via nasal cannula. Morning labs are stable. The patient completed his antimicrobial treatment course yesterday. Objective Data Objective Data The patient's most recent lab work, culture data and imaging studies have all been personally reviewed. Blood, urine and sputum cultures have not demonstrated any growth to date. Vital Signs: Vital Signs Temp Pulse Resp BP Pulse Ox O2 Del Method O2 Flow Rate 98.1 F 97 18 117/69 97 Nasal Cannula 3 11/18/23 08:55 11/18/23 08:55 11/18/23 08:55 11/18/23 08:55 11/18/23 08:55 11/18/23 08:55 11/18/23 08:55 FiO2 30 11/13/23 07:00 Oxygen Flow Rate (L/min) 3 Oxygen Delivery Method Nasal Cannula Weight: 179 lb 10.828 oz Body Mass Index (BMI) 25.7 Intake & Output: Intake and Output for Last 24 Hours 11/16/23 11/17/23 11/18/23 23:59 23:59 23:59 Intake Total 1690 / 1690 1200 / 1840 1050 / 1050 Output Total 1500 / 1500 1300 / 1950 650 / 650 Balance 190 / 190 -100 / -110 400 / 400 Lab / Micro Data Attestation: I reviewed the patient's lab results. 11/18/23 05:33 11/18/23 05:33 Labs: Laboratory Results - last 24 hr 11/16/23 04:10: Diff Path Review Reviewed 11/17/23 05:47: Sodium 148 H, Potassium 4.2, Chloride 114 H, Carbon Dioxide 29.0, Anion Gap 5, BUN 38 H, Creatinine 0.75, Estim Creat Clear Calc 88.72, Est GFR (MDRD) Af Amer 133, Est GFR (MDRD) Non-Af 110, BUN/Creatinine Ratio 50.8 H, Glucose 219 H, Calcium 8.4 L, Phosphorus 2.8, Magnesium 2.8 H 11/18/23 05:33: WBC 8.9, RBC 4.04 L, Hgb 12.0 L, Hct 38.7 L, MCV 95.8 H, MCH 29.7, MCHC 31.0 L, RDW Std Deviation 47.1 H, RDW Coeff of Jackie 13.5, Plt Count 145 L, MPV 12.4 H, Immature Gran % (Auto) 4.800 H, Neut % (Auto) 80.7 H, Lymph % (Auto) 7.7 L, [place] % (Auto) 6.1, Eos % (Auto) 0.1, Baso % (Auto) 0.6, Absolute Neuts (auto) 7.2, Absolute Lymphs (auto) 0.69 L, Nucleated RBC % 0, Sodium 143, Potassium 3.6, Chloride 110 H, Carbon Dioxide 28.0, Anion Gap 5, BUN 32 H, Creatinine 0.72, Estim Creat Clear Calc 88.72, Est GFR (MDRD) Af Amer 138, Est GFR (MDRD) Non-Af 114, BUN/Creatinine Ratio 44.1 H, Glucose 246 H, Calcium 8.1 L, Total Bilirubin 0.80, AST 36, ALT 174 H, Alkaline Phosphatase 99, Total Protein 5.2 L, Albumin 2.3 L, Globulin 2.9, Albumin/Globulin Ratio 0.8 L Micro: Microbiology 11/17/23 00:24 Stool Enteric Bacteriology - Final 11/17/23 00:24 Stool Clostridioides difficile (PCR) - Final 11/10/23 22:49 Blood Culture (Wb) - Anticubital Left Blood Culture - Final No growth in 5 days. 11/11/23 03:55 Sputum, Induced/Lukens Gram Stain - Final 11/11/23 03:55 Sputum, Induced/Lukens Respiratory Culture - Final Mixed normal respiratory delilah. No Streptococcus pneumoniae, beta-hemolytic Streptococcus or Staphylococcus aureus isolated. 11/10/23 22:20 Urine, Clean Catch Urine Culture - Final Mixed Gram Positive Organisms 11/11/23 07:45 Nasal Secretion MRSA (PCR) - Final Meth. resistant Staph. aureus 11/10/23 22:20 Mucosa - Nasopharyngeal SARS-CoV-2, Influenza & RSV (PCR) - Final Radiography Diagnostic Testing: Radiology Impression Echocardiogram 11/11/23 22:31 Interpretation Summary The estimated ejection fraction is 60 %. No evidence for diastolic dysfunction. Ordering Physician: Yamilka Lozada Referring Physician: Sam Brower Chi Performed By: Ophelia Lucio, FRANK Physical Exam Const alert and no apparent distress General Appearance: cooperative HEENT normocephalic, head/scalp atraumatic and moist oral mucous membranes Eyes PERRL, EOMs intact bilaterally and conjunctivae normal Neck supple General: trachea midline Chest inspection of chest normal Resp normal respiratory effort Auscultation: diminished lung sounds; Negative for rales, rhonchi or wheezes Cardio regular rate and regular rhythm GI normal to inspection, nondistended, normoactive bowel sounds Extremity no clubbing, cyanosis or edema Neuro CN's II-XII intact bilaterally, moves all extremities and no focal motor deficits Psych Mood & Affect: flat affect Charges/Coding Visit Charges Inpatient E&M: 78151 Subs Hosp L2
--- NOTE | 2023-11-18 10:21 | CASEMGMT ---
Addendum entered by Allison Rose 11/18/23 12:01: Updates requested for precert sent via [employer]. Allison Rose DC Planning Asst. Original Note: Discharge Planning [facility] has accepted and will submit for precert. [facility] asked to cancel referral. SW aware. Allison Rose DC Planning Asst.
--- NOTE | 2023-11-18 10:22 | CASEMGMT ---
[facility] accepted patient and will submit for insurance authorization. Plan: d/c to [facility] pending insurance authorization. Mary RAINEY
[2023-11-18] MEDS: Insulin Glargine-YFGN 100 UNIT/ML Pen 10 UNIT SC (10:27)
[2023-11-18] MEDS: Nystatin Powder 15gm Bottle 1 APPLIC TOPICAL ×2 (10:28→21:02)
[2023-11-18] MEDS: Mupirocin Ointment 22gm Tube 1 APPLIC NASAL ×2 (10:28→21:01)
[2023-11-18 11:30] LABS: Bedside Glucose 278 mg/dL (74-106)
--- NOTE | 2023-11-18 12:40 | CASEMGMT ---
SW notified patient that [facility] is able to take him and once insurance approves physician will discharge him. Patient said he hopes it is not today as he does not feel well.
--- NOTE | 2023-11-18 13:44 | CASEMGMT ---
Patient was approved for [facility]. SW notified physician. SW also notified physician that patient told SW he does not feel well. Physician said she will send patient tomorrow. SW notified [facility]. Plan: d/c to [facility] Mary RAINEY
--- NOTE | 2023-11-18 17:16 | PCM.PN.HOSP ---
Reason for Visit Reason for Visit: Shortness of breath Subjective Subjective Patient states he is not feeling great today but unable to specify specifics as to why he is not feeling well. Oxygen requirements have decreased and he is now on 2 L nasal cannula. Labs overtly appears stable. Asks if we have fingernail clippers to cut his nails. Objective Data Objective Data Vital Signs: Vital Signs Temp Pulse Resp BP Pulse Ox O2 Del Method O2 Flow Rate 97.8 F 108 H 18 117/63 94 Nasal Cannula 2 11/18/23 15:56 11/18/23 15:56 11/18/23 15:56 11/18/23 15:56 11/18/23 15:56 11/18/23 15:56 11/18/23 15:56 FiO2 30 11/13/23 07:00 Oxygen Flow Rate (L/min) 2 Oxygen Delivery Method Nasal Cannula Weight: 81.5 kg Body Mass Index (BMI) 25.7 Intake & Output: Intake and Output for Last 24 Hours 11/16/23 11/17/23 11/18/23 23:59 23:59 23:59 Intake Total 1690 / 1690 1200 / 1840 1490 / 1490 Output Total 1500 / 1500 1300 / 1950 650 / 650 Balance 190 / 190 -100 / -110 840 / 840 Lab / Micro Data 11/18/23 05:33 11/18/23 05:33 Labs: Laboratory Results - last 24 hr 11/18/23 05:33: WBC 8.9, RBC 4.04 L, Hgb 12.0 L, Hct 38.7 L, MCV 95.8 H, MCH 29.7, MCHC 31.0 L, RDW Std Deviation 47.1 H, RDW Coeff of Jackie 13.5, Plt Count 145 L, MPV 12.4 H, Immature Gran % (Auto) 4.800 H, Neut % (Auto) 80.7 H, Lymph % (Auto) 7.7 L, Ray % (Auto) 6.1, Eos % (Auto) 0.1, Baso % (Auto) 0.6, Absolute Neuts (auto) 7.2, Absolute Lymphs (auto) 0.69 L, Nucleated RBC % 0, Sodium 143, Potassium 3.6, Chloride 110 H, Carbon Dioxide 28.0, Anion Gap 5, BUN 32 H, Creatinine 0.72, Estim Creat Clear Calc 88.72, Est GFR (MDRD) Af Amer 138, Est GFR (MDRD) Non-Af 114, BUN/Creatinine Ratio 44.1 H, Glucose 246 H, Calcium 8.1 L, Total Bilirubin 0.80, AST 36, ALT 174 H, Alkaline Phosphatase 99, Total Protein 5.2 L, Albumin 2.3 L, Globulin 2.9, Albumin/Globulin Ratio 0.8 L 11/18/23 10:26: POC Glucose 278 H Micro: Microbiology 11/17/23 00:24 Stool Enteric Bacteriology - Final 11/17/23 00:24 Stool Clostridioides difficile (PCR) - Final 11/10/23 22:49 Blood Culture (Wb) - Anticubital Left Blood Culture - Final No growth in 5 days. 11/11/23 03:55 Sputum, Induced/Lukens Gram Stain - Final 11/11/23 03:55 Sputum, Induced/Lukens Respiratory Culture - Final Mixed normal respiratory delilah. No Streptococcus pneumoniae, beta-hemolytic Streptococcus or Staphylococcus aureus isolated. 11/10/23 22:20 Urine, Clean Catch Urine Culture - Final Mixed Gram Positive Organisms 11/11/23 07:45 Nasal Secretion MRSA (PCR) - Final Meth. resistant Staph. aureus 11/10/23 22:20 Mucosa - Nasopharyngeal SARS-CoV-2, Influenza & RSV (PCR) - Final Physical Exam Const alert, oriented x3, no apparent distress, average body habitus and well nourished; Negative for healthy appearing Constitutional Narrative: Frail-appearing, older, white male, sitting up in bed, appears comfortable currently, nontoxic, does appear older than stated age, watching television and listening music on his phone Orientation / Consciousness: confused HEENT normocephalic, head/scalp atraumatic and moist oral mucous membranes HEENT Narrative: Dentition is poor, Mallampati is 2-3, no thrush Resp normal respiratory effort, no retractions, no use of accessory muscles and clear to auscultation bilaterally Resp Narrative: Diminished but clear Auscultation: Negative for crackles, rhonchi or wheezes Cardio regular rate, regular rhythm, S1 normal heart sound, S2 normal heart sound, no murmurs, no rub, no gallops and no clicks GI normal to inspection, nondistended, normoactive bowel sounds, soft to palpation and non-tender Extremity normal capillary refill and no clubbing, cyanosis or edema Extremity Narrative: Pedal pulses are 2+ Skin General Skin Exam: no breakdown Neuro oriented x3, moves all extremities and no focal motor deficits Neuro Narrative: Significant generalized weakness noted with no specific focal deficit Speech: speech normal Psych Psych Narrative: pleasant, affect is slightly flat today Assessment & Plan Assessment/Plan (1) Acute hypoxemic respiratory failure: (2) Pneumonia: (3) Septic shock: PLAN: Plan Acute hypoxic respiratory failure -Patient with dense right lower lobe consolidation -Antibiotics completed -Oxygen has been weaned to 2 L -Echo shows normal EF with no evidence of diastolic dysfunction or regional wall motion abnormalities/valvular abnormalities -Continue aggressive pulmonary toilet -Continue to encourage incentive spirometer -Continue Acapella -Continue as needed guaifenesin -Continue prednisone 40 mg today and transition to 30 mg tomorrow -Patient likely has component of COPD and still smokes -Recommend cessation -Pulmonary medicine has signed off Septic shock -Resolved -Secondary to pneumonia as noted above -Patient met criteria with organ dysfunction related to altered mental status, lactic acidosis, thrombocytopenia, respiratory failure requiring intubation and developed fluid refractory hypotension requiring vasopressor support Dysphagia -Speech therapy continues to follow -Diet advanced -Continue compensatory strategies -Will need ongoing speech therapy at discharge Generalized weakness/debility secondary to acute illness -Patient will need rehab after discharge -Plan is for [facility] with probable discharge tomorrow Thrombocytopenia -Counts continue to recover and have almost normalized Hypernatremia/hyperchloremia -Resolved Hyperlipidemia -Continue home statin therapy Tobacco abuse -Patient with ongoing tobacco abuse -Recommend cessation -Patient voices understanding Depression/anxiety -Continue home Wellbutrin -Continue home risperidone -Continue home trazodone DVT prophylaxis -Continue subcu Lovenox CODE STATUS Full code Charges/Coding Visit Charges Inpatient E&M: 05530 Subs Hosp L2
[2023-11-18] MEDS: 0.9% Saline Lock 10 ML Syringe IV (19:47)
[2023-11-18] MEDS: clonazePAM 0.5 MG Tablet PO (21:00)
[2023-11-18] MEDS: traZODone 50 MG Tablet PO (21:03)
[2023-11-18] MEDS: Atorvastatin Calcium 20 MG Tablet PO (21:04)
[2023-11-19] VITALS (8 sets, daily range): BP systolic 94–147; BP diastolic 56–72; PULSE 74–100; RESP 18–22; TEMP 36.6–36.9; O2SAT 90–96; BMI 26.0
[2023-11-19] MEDS: buPROPion 100 MG Tablet PO ×2 (05:37→14:19)
[2023-11-19] MEDS: Ipratropium/Albuterol Sulfate 3 ML AMPUL.NEB INHALATION (06:57)
[2023-11-19 07:03] LABS: Hemoglobin 12.1 g/dL (13.0-16.5); Mean Corp Hgb Conc 31.8 g/dL (32-36); Mean Corpuscular Hgb 29.8 pg (27.0-32.0); Mean Corpuscular Volume 93.6 fL (80-94); Mean Platelet Vol. 12.5 fl (6.2-12.0); POSITIVE COUNT YES; POSITIVE MORPHOLOGY YES; Platelet Count 141 K/mm3 (150-450); RBC Distribution Width CV 13.3 % (11.6-14.6); RBC Distribution Width SD 45.1 fl (35.1-43.9); Red Blood Count 4.06 M/mm3 (4.6-6.2); White Blood Count 8.7 K/mm3 (4.4-11.0)
[2023-11-19 07:14] LABS: Differential Indicated MANUAL DIFF
[2023-11-19 07:23] LABS: Anion Gap 4 (5-15); BUN 30 mg/dL (7-18); BUN/Creat Ratio 42.1 RATIO (10-20); Chloride 111 mmol/L (98-107); Creatinine, Serum 0.71 mg/dL (0.70-1.30); EST Glomerular Filtration Rate 116 mL/min (>60); Est Glom Filt Rate - Afr Amer 140 mL/min (>60); Estimated Creatinine Clearance 88.72 ml/min; Glucose 171 mg/dL (74-106); Potassium 3.6 mmol/L (3.5-5.1); Sodium Level 143 mmol/L (136-145)
[2023-11-19] MEDS: RisperiDONE 1 MG Tablet 2 MG PO (08:25)
[2023-11-19] MEDS: predniSONE 20 MG Tablet 40 MG PO (08:25)
[2023-11-19] MEDS: Aspirin 81 MG TAB.CHEW PO (08:25)
[2023-11-19] MEDS: guaiFENesin 10 ML UDC (200MG/10ML) PO (08:26)
[2023-11-19] MEDS: Enoxaparin 40 MG/0.4 ML Syringe SC (08:26)
[2023-11-19] MEDS: clonazePAM 0.5 MG Tablet PO (08:26)
[2023-11-19] MEDS: Nystatin Powder 15gm Bottle 1 APPLIC TOPICAL (08:26)
[2023-11-19] MEDS: Insulin Glargine-YFGN 100 UNIT/ML Pen 10 UNIT SC (08:27)
[2023-11-19] MEDS: Mupirocin Ointment 22gm Tube 1 APPLIC NASAL (08:27)
[2023-11-19 09:18] LABS: Eosinophil 1 % (0-5); Lymphocyte 9 % (19-41); Metamyelocyte 1 % (0-1); Monocyte 7 % (0-10); Neutrophil-Segmented 82 % (47-70); Platelet Estimate SLT DEC (ADEQ); Red Cell Morphology NORM C+C NORMAL (NORM C&C); Total Cells Counted 100 (MANUAL DIFF)
[2023-11-19 09:19] LABS: Absolute Neutrophil Count 7.1 X10^3/uL (2.0-7.7)
[2023-11-19] MEDS: Metoprolol Tartrate 25 MG Tablet PO (12:19)
--- NOTE | 2023-11-19 13:28 | PCM.DC.SUM ---
Providers Date of Admission: 11/11/23 Primary Care Physician: Dr. Sam Brower MD Consultations 11/11/23 04:10 Consult: Replanting Machine Crewman / Pulmonary Medicine Routine Consulting Provider: Intensivists/Pulmonary Med Reason for Consult: icu management EMERGENT Consult: Yes MD Notified: Yes Date Notified: 11/11/23 Time Notified: 02:24 Method of Notification: ED Physician Initiated Reason For Visit: PNEUMONIA RESPIRATORY FAILURE Diagnosis Discharge Diagnosis (1) Acute hypoxemic respiratory failure: Status: Acute Code(s): J96.01 - Acute respiratory failure with hypoxia (2) Pneumonia: Status: Acute Code(s): J18.9 - Pneumonia, unspecified organism (3) Septic shock: Status: Acute Code(s): A41.9 - Sepsis, unspecified organism; R65.21 - Severe sepsis with septic shock Plan Acute hypoxic respiratory failure -Patient with dense right lower lobe consolidation -Antibiotics completed -Oxygen has been weaned to 2 L -Echo shows normal EF with no evidence of diastolic dysfunction or regional wall motion abnormalities/valvular abnormalities -Continue aggressive pulmonary toilet -Continue to encourage incentive spirometer -Continue Acapella -Continue as needed guaifenesin -Continue prednisone 40 mg today and transition to 30 mg tomorrow -Patient likely has component of COPD and still smokes -Recommend cessation -Pulmonary medicine has signed off Septic shock -Resolved -Secondary to pneumonia as noted above -Patient met criteria with organ dysfunction related to altered mental status, lactic acidosis, thrombocytopenia, respiratory failure requiring intubation and developed fluid refractory hypotension requiring vasopressor support Dysphagia -Speech therapy continues to follow -Diet advanced -Continue compensatory strategies -Will need ongoing speech therapy at discharge Generalized weakness/debility secondary to acute illness -Patient will need rehab after discharge -Plan is for [facility] with probable discharge tomorrow Thrombocytopenia -Counts continue to recover and have almost normalized Hypernatremia/hyperchloremia -Resolved Hyperlipidemia -Continue home statin therapy Tobacco abuse -Patient with ongoing tobacco abuse -Recommend cessation -Patient voices understanding Depression/anxiety -Continue home Wellbutrin -Continue home risperidone -Continue home trazodone DVT prophylaxis -Continue subcu Lovenox CODE STATUS Full code Medications at Discharge Home Medications bupropion HCl 150 mg 24 hr tablet, extended release 150 mg PO BID depression 09/09/19 risperidone 2 mg tablet 2 mg PO BID depression/anxiety 09/09/19 simvastatin 40 mg tablet 40 mg PO DAILY cholesterol 09/09/19 trazodone 50 mg tablet 50 mg PO QHS sleep 09/09/19 albuterol sulfate 90 mcg/actuation aerosol inhaler 2 puff inhalation Q4H PRN sob 11/11/23 fluticasone fur. 100 mcg-umeclid 62.5 mcg-vilant 25 mcg inhalat.powder (Trelegy Ellipta) 1 ea inhalation DAILY sob 11/11/23 naproxen 500 mg tablet 500 mg PO BID PRN pain 11/11/23 acetaminophen 650 mg/20.3 mL oral solution 650 mg (20.3 mL) PO Q6H PRN PRN Fever #0 mL 11/19/23 aspirin 81 mg chewable tablet 81 mg PO BREAKFAST #0 tabs 11/19/23 clonazepam 0.5 mg tablet 0.5 mg PO Q8H PRN anxiety 11/19/23 guaifenesin 100 mg/5 mL oral liquid 50 mg (2.5 mL) PO Q4H PRN PRN Cough #1,000 mL 11/19/23 ipratropium 0.5 mg-albuterol 3 mg (2.5 mg base)/3 mL nebulization soln 3 ml inhalation Q6H.RT #0 mL 11/19/23 metoprolol tartrate 25 mg tablet 25 mg PO BID #0 tabs 11/19/23 mupirocin 2 % topical ointment 1 applic NASAL BID #0 grams 11/19/23 prednisone 10 mg tablet 10 mg PO DAILY #1 TAB 11/19/23 Weight / BMI Weight Weight: 82.282 kg Body Mass Index (BMI) 26.0 ABG / Lab / Microbiology Data 11/19/23 06:15 11/19/23 06:15 Laboratory: Laboratory Results - last 24 hr 11/19/23 06:15: WBC 8.7, RBC 4.06 L, Hgb 12.1 L, Hct 38.0 L, MCV 93.6, MCH 29.8, MCHC 31.8 L, RDW Std Deviation 45.1 H, RDW Coeff of Jackie 13.3, Plt Count 141 L, MPV 12.5 H, Neut % (Auto) Not Reportable, Absolute Neuts (auto) 7.1, Absolute Lymphs (auto) 0.80 L, Total Counted 100, Neutrophils % (Manual) 82 H, Lymphocytes % (Manual) 9 L, Monocytes % (Manual) 7, Eosinophils % (Manual) 1, Metamyelocytes % 1, Diff Path Review May foll, Platelet Estimate SLT DEC, RBC Morphology NORM C+C, Sodium 143, Potassium 3.6, Chloride 111 H, Carbon Dioxide 28.0, Anion Gap 4 L, BUN 30 H, Creatinine 0.71, Estim Creat Clear Calc 88.72, Est GFR (MDRD) Af Amer 140, Est GFR (MDRD) Non-Af 116, BUN/Creatinine Ratio 42.1 H, Glucose 171 H, Calcium 8.0 L Microbiology: Microbiology 11/17/23 00:24 Stool Enteric Bacteriology - Final 11/17/23 00:24 Stool Clostridioides difficile (PCR) - Final 11/10/23 22:49 Blood Culture (Wb) - Anticubital Left Blood Culture - Final No growth in 5 days. 11/11/23 03:55 Sputum, Induced/Lukens Gram Stain - Final 11/11/23 03:55 Sputum, Induced/Lukens Respiratory Culture - Final Mixed normal respiratory delilah. No Streptococcus pneumoniae, beta-hemolytic Streptococcus or Staphylococcus aureus isolated. 11/10/23 22:20 Urine, Clean Catch Urine Culture - Final Mixed Gram Positive Organisms 11/11/23 07:45 Nasal Secretion MRSA (PCR) - Final Meth. resistant Staph. aureus 11/10/23 22:20 Mucosa - Nasopharyngeal SARS-CoV-2, Influenza & RSV (PCR) - Final Meaningful Use Info Meaningful Use Meaningful Use Diagnoses (Choose all that apply): None applicable Ischemic Stroke Statin Dosing Therapy Reference: STATIN DOSE THERAPY REFERENCE: * Patients > 75 years receive moderate or high dose statin therapy. * Patients 75 years or YOUNGER should receive HIGH intensity statin dose unless contraindicated. You will be required to document reason for non-treatment if statin daily dose does not meet guidelines. HIGH DOSE STATIN THERAPY DAILY Atorvastatin > than or = to 40 mg Rosuvastatin > than or = to 20 mg Amlodipine + Atorvastatin > than or = to 2.5/40 mg Ezetimibe + Simvastatin 10/80 mg Simvastatin 80mg Discharge Plan Admission Admit Date/Time: 11/11/23 01:56 Primary Reason for Your Visit: Shortness of Breath Attending Provider: Ashli Mercado Primary Care Provider: Sam Brower Chi Consulting Providers: Thong Johnson; Luis Ramos; Song Peters Discharge Orders/Prescriptions Prescriptions: New ipratropium-albuterol 0.5 mg-3 mg(2.5 mg base)/3 mL Solution For Nebulization 3 ml inhalation Q6H.RT Qty: 0 0RF guaifenesin 100 mg/5 mL Liquid 50 mg PO Q4H PRN PRN (Reason: Cough) Qty: 1000 0RF aspirin 81 mg Tablet,Chewable 81 mg PO BREAKFAST Qty: 0 0RF mupirocin 2 % Ointment 1 applic NASAL BID Qty: 0 0RF Protocol: *Topical Application Instructions APPLICATION INSTRUCTIONS: nasal Rx Instructions: Stop on am of 10/12 metoprolol tartrate 25 mg Tablet 25 mg PO BID Qty: 0 0RF acetaminophen 650 mg/20.3 mL Solution 650 mg PO Q6H PRN PRN (Reason: Fever) Qty: 0 0RF prednisone 10 mg tablet 10 mg PO DAILY Qty: 1 0RF Rx Instructions: 3 tablets x 4 days / 2 tablets x 4 days / 1 tablet x 4 days and then stop Continued trazodone 50 MG tablet 50 mg PO QHS simvastatin 40 MG tablet 40 mg PO DAILY risperidone 2 MG tablet 2 mg PO BID bupropion HCl 150 MG tablet extended release 24 hr 150 mg PO BID albuterol sulfate 90 mcg/actuation HFA aerosol inhaler 2 puff inhalation Q4H PRN (Reason: sob ) Trelegy Ellipta 100-62.5-25 mcg blister with device 1 ea inhalation DAILY naproxen 500 mg tablet 500 mg PO BID PRN (Reason: pain) clonazepam 0.5 mg tablet 0.5 mg PO Q8H PRN (Reason: anxiety) Referrals / Follow Up: Alen Barrow DO [Med Staff - Active Staff] - Within 3 Months () Sam Brower Chi, MD [Primary Care Provider] - Disposition Disposition (needs filled in before D/C Order can be placed): [facility] Charges/Coding Visit Charges Inpatient E&M: 13983 SNF Disch >30 Min
--- NOTE | 2023-11-19 13:33 | TREXTCAR_ITS ---
Diet Diet Order/Speech Therapy: 11/14/23 13:30 Diet: Regular - General Food consistency:: Soft & Bite Sized Liquid Consistency:: Regular/Thin Diet Comments: Distant sup, meds crushed in , NO YOGURT Routine Orders/Code Status O2 Frequency: Continuous Keep PO Greater than or Equal to (%): 2 (May need more with ambulation) Routine Lab Work: CBC (7 days) and BMP (7 days) Code Status: Full Code Wound(s) third toe left foot: Wound Type: Abrasion big toe right foot: Wound Type: Abrasion neck: Wound Type: Puncture Suggestions for Active Care Change Position every (hours): 2 Hours to sit in a chair: 2 Times a day to sit in chair: 3 Therapies Weight Bearing: Full weight bearing Physical Therapy: Eval and Treat Occupational Therapy: Eval and Treat Speech Therapy: Eval and Treat Problem/Diagnosis (1) Acute hypoxemic respiratory failure: Status: Acute Code(s): J96.01 - Acute respiratory failure with hypoxia (2) Pneumonia: Status: Acute Code(s): J18.9 - Pneumonia, unspecified organism (3) Septic shock: Status: Acute Code(s): A41.9 - Sepsis, unspecified organism; R65.21 - Severe sepsis with septic shock Allergies/Procedures Done in Hospital Allergies No Known Allergies Allergy (Verified 11/10/23 21:02) Procedures: 2-D Echocardiogram, EKG and - (MBS/chest x-ray/CTA chest/CT brain) Type of Care/Length of Stay Estimated LOS: Convalescent Care Less Than 30 days Type of Care Needed: Skilled Rehab Potential: Good Prognosis: Good Additional Orders/Day of Discharge Day of Discharge: 11/19/23 Dietary and Speech Recommendations Dietitian Recommendations/Changes: Continue regular diet with consistency/texture per CONCRETE FINISHER APPRENTICE recommendations. Pt denies ONS at this time. Will monitor weight, as available. Reviewed and approved by Katina Noyola RD, LD. Follow Up Care Please follow up with your Primary Care Physician in: 1 week after d/c from SNF Please Follow Up With: Alen Barrow DO When: 3 mos Discharge Plan Admission Admit Date/Time: 11/11/23 01:56 Primary Reason for Your Visit: Shortness of Breath Attending Provider: Ashli Mercado Primary Care Provider: Sam Brower Chi Consulting Providers: Thong Johnson; Luis Ramos; Song Peters Discharge Orders/Prescriptions Prescriptions: New ipratropium-albuterol 0.5 mg-3 mg(2.5 mg base)/3 mL Solution For Nebulization 3 ml inhalation Q6H.RT Qty: 0 0RF guaifenesin 100 mg/5 mL Liquid 50 mg PO Q4H PRN PRN (Reason: Cough) Qty: 1000 0RF aspirin 81 mg Tablet,Chewable 81 mg PO BREAKFAST Qty: 0 0RF mupirocin 2 % Ointment 1 applic NASAL BID Qty: 0 0RF Protocol: *Topical Application Instructions APPLICATION INSTRUCTIONS: nasal Rx Instructions: Stop on am of 10/12 metoprolol tartrate 25 mg Tablet 25 mg PO BID Qty: 0 0RF acetaminophen 650 mg/20.3 mL Solution 650 mg PO Q6H PRN PRN (Reason: Fever) Qty: 0 0RF prednisone 10 mg tablet 10 mg PO DAILY Qty: 1 0RF Rx Instructions: 3 tablets x 4 days / 2 tablets x 4 days / 1 tablet x 4 days and then stop Continued trazodone 50 MG tablet 50 mg PO QHS simvastatin 40 MG tablet 40 mg PO DAILY risperidone 2 MG tablet 2 mg PO BID bupropion HCl 150 MG tablet extended release 24 hr 150 mg PO BID albuterol sulfate 90 mcg/actuation HFA aerosol inhaler 2 puff inhalation Q4H PRN (Reason: sob ) Trelegy Ellipta 100-62.5-25 mcg blister with device 1 ea inhalation DAILY naproxen 500 mg tablet 500 mg PO BID PRN (Reason: pain) clonazepam 0.5 mg tablet 0.5 mg PO Q8H PRN (Reason: anxiety) Referrals / Follow Up: Alen Barrow DO [Med Staff - Active Staff] - Within 3 Months () Sam Brower Chi, MD [Primary Care Provider] - Disposition Disposition (needs filled in before D/C Order can be placed): [facility]
--- NOTE | 2023-11-19 13:52 | CASEMGMT ---
SW spoke with patient and let him know he will be headed to [facility] today. Patient stated he is nervous. SW provided emotional support and encouraged patient. ANNABELLE completed a 7000 in [employer] system. ANNABELLE called patient's daughter Anabell and let her know patient will be headed to [facility] today. Anabell thanked ANNABELLE for notifying her. Plan: d/c to [facility] under skilled level of care. Physicians will transport patient via wheelchair van. Mary RAINEY
--- NOTE | 2023-11-19 13:59 | PHA.DC.MR.R ---
Pharmacy [place] Med Reconciliation Pharmacy Service has performed discharge medication reconciliation for this patient. The patient's discharge medication list was reviewed for discrepancies and discrepancies were resolved. Medications at Discharge Home Medications bupropion HCl 150 mg 24 hr tablet, extended release 150 mg PO BID depression 09/09/19 risperidone 2 mg tablet 2 mg PO BID depression/anxiety 09/09/19 simvastatin 40 mg tablet 40 mg PO DAILY cholesterol 09/09/19 trazodone 50 mg tablet 50 mg PO QHS sleep 09/09/19 albuterol sulfate 90 mcg/actuation aerosol inhaler 2 puff inhalation Q4H PRN sob 11/11/23 fluticasone fur. 100 mcg-umeclid 62.5 mcg-vilant 25 mcg inhalat.powder (Trelegy Ellipta) 1 ea inhalation DAILY sob 11/11/23 naproxen 500 mg tablet 500 mg PO BID PRN pain 11/11/23 acetaminophen 650 mg/20.3 mL oral solution 650 mg (20.3 mL) PO Q6H PRN PRN Fever #0 mL 11/19/23 aspirin 81 mg chewable tablet 81 mg PO BREAKFAST #0 tabs 11/19/23 clonazepam 0.5 mg tablet 0.5 mg PO Q8H PRN anxiety 11/19/23 guaifenesin 100 mg/5 mL oral liquid 50 mg (2.5 mL) PO Q4H PRN PRN Cough #1,000 mL 11/19/23 ipratropium 0.5 mg-albuterol 3 mg (2.5 mg base)/3 mL nebulization soln 3 ml inhalation Q6H.RT #0 mL 11/19/23 metoprolol tartrate 25 mg tablet 25 mg PO BID #0 tabs 11/19/23 mupirocin 2 % topical ointment 1 applic NASAL BID #0 grams 11/19/23 prednisone 10 mg tablet 10 mg PO DAILY #1 TAB 11/19/23
--- NOTE | 2023-11-19 14:03 | CASEMGMT ---
Discharge Planning Discharge orders, signed med list, and transport time sent to [facility] via [facility]. Physicians will transport patient by wheelchair at 3p. Nursing, SW, and patient updates. SW updated daughter (Anabell). Allison Rose DC Planning Asst.
--- NOTE | 2023-11-19 14:57 | NURSING ---
report called to Lazaro at [facility]
--- NOTE | 2023-11-19 15:03 | PCM.DC.SUM ---
Providers Date of Admission: 11/11/23 Primary Care Physician: Dr. Sam Brower MD Consultations 11/11/23 04:10 Consult: Construction Administrative Assistant / Pulmonary Medicine Routine Consulting Provider: Intensivists/Pulmonary Med Reason for Consult: icu management EMERGENT Consult: Yes MD Notified: Yes Date Notified: 11/11/23 Time Notified: 02:24 Method of Notification: ED Physician Initiated Reason For Visit: PNEUMONIA RESPIRATORY FAILURE Diagnosis Discharge Diagnosis (1) Acute hypoxemic respiratory failure: Status: Acute Code(s): J96.01 - Acute respiratory failure with hypoxia (2) Pneumonia: Status: Acute Code(s): J18.9 - Pneumonia, unspecified organism (3) Septic shock: Status: Acute Code(s): A41.9 - Sepsis, unspecified organism; R65.21 - Severe sepsis with septic shock Medications at Discharge Home Medications bupropion HCl 150 mg 24 hr tablet, extended release 150 mg PO BID depression 09/09/19 risperidone 2 mg tablet 2 mg PO BID depression/anxiety 09/09/19 simvastatin 40 mg tablet 40 mg PO DAILY cholesterol 09/09/19 trazodone 50 mg tablet 50 mg PO QHS sleep 09/09/19 albuterol sulfate 90 mcg/actuation aerosol inhaler 2 puff inhalation Q4H PRN sob 11/11/23 fluticasone fur. 100 mcg-umeclid 62.5 mcg-vilant 25 mcg inhalat.powder (Trelegy Ellipta) 1 ea inhalation DAILY sob 11/11/23 naproxen 500 mg tablet 500 mg PO BID PRN pain 11/11/23 acetaminophen 650 mg/20.3 mL oral solution 650 mg (20.3 mL) PO Q6H PRN PRN Fever #0 mL 11/19/23 aspirin 81 mg chewable tablet 81 mg PO BREAKFAST #0 tabs 11/19/23 clonazepam 0.5 mg tablet 0.5 mg PO Q8H PRN anxiety 11/19/23 guaifenesin 100 mg/5 mL oral liquid 50 mg (2.5 mL) PO Q4H PRN PRN Cough #1,000 mL 11/19/23 ipratropium 0.5 mg-albuterol 3 mg (2.5 mg base)/3 mL nebulization soln 3 ml inhalation Q6H.RT #0 mL 11/19/23 metoprolol tartrate 25 mg tablet 25 mg PO BID #0 tabs 11/19/23 mupirocin 2 % topical ointment 1 applic NASAL BID #0 grams 11/19/23 prednisone 10 mg tablet 10 mg PO DAILY #1 TAB 11/19/23 Hospital Course Procedures 2-D Echocardiogram, Modified Barium Swallow and - (CT brain/CTA chest/chest x-ray) Summary of Care Provided Minutes Spent on Discharge: 39 Hospital Course: Patient is a 68-year-old white male who presented to the emergency department at [facility] on 11/10/2023 after a fall. Patient significant other called EMS after she found him lying on the ground up against the wall. Patient reported that he had some cough and shortness of breath over the past several days prior to presentation but he was unaware of what caused him to fall. His cough had progressively gotten worse. He has a history of long-term tobacco abuse and is still smoking but does not wear oxygen at baseline. CTA of the chest was performed prior to admission and was notable for a right lower lobe pneumonia but negative for PE. Vital signs on presentation showed temperature of 99.2, heart rate 139, blood pressure was 142/121 and pulse ox was 94% on room air. BNP was mildly elevated to 26. He had a leukocytosis of 18,000 and a lactic acid of 3.9. Bilirubin was 2.0. CK was 4138. Troponin was mildly elevated at 93. UA showed leuk esterase and 1+ bacteria. COVID/flu/RSV were unremarkable. Blood, urine, and sputum cultures were collected and the patient was initially placed on BiPAP however he decompensated from a respiratory perspective and was ultimately intubated in the emergency department prior to admission. He was placed on antimicrobial therapy and admitted to the intensive care unit. Pulmonary medicine was consulted and given the fact he had a dense right lower lobe consolidation that was concerning for pneumonia he was maintained on IV antibiotics with vancomycin and Zosyn. Nasal MRSA was positive so vancomycin was continued. With his nasal MRSA swab being positive he was started on nasal Bactroban for total of 5 days for medication. Blood cultures were unremarkable. Sputum culture showed only normal respiratory delilah. Patient did develop diarrhea during his hospitalization and he was tested for enteric bacteria and C. difficile both of which were unremarkable. At that time he was started on antidiarrheals. Echocardiogram showed EF of 60% with no evidence of diastolic dysfunction and right ventricular systolic pressures of 35 mmHg. His respiratory status improved to the point where he was able to be extubated on 11/13/2023. Since extubation he is slowly been able to be weaned to the point where he is on 2 L nasal cannula. Antibiotics have been completed for a total 7-day course. He remains on a prednisone taper which will be tapered slowly over the next 12 days. Goal would be to slowly wean oxygen as able. It is certainly possible that he will need chronic oxygen replacement. I do highly recommend that he follow-up with pulmonary medicine and I have referred him to see Dr. Barrow in the next 3 months after discharge. This should give him time to recover as he will need pulmonary function studies. His blood pressure was noted to be elevated so we did add some low-dose metoprolol 25 mg p.o. twice daily he will need continued follow-up with his blood pressure. He also has significant anxiety at baseline with panic disorder and is concerned about this being problematic. I did assure him he will be maintained on his home medications. He was seen by therapy services and they did strongly recommend that he would need ongoing therapy prior to returning home. Both he and his significant other agreed. He was accepted at [facility] and pre-CERT was obtained on 11/18/2023. He was deemed stable for discharge from the hospital from a medical standpoint on 11/19/2023. Discharge diagnoses: Acute hypoxic respiratory failure Septic shock-resolved Dysphagia Generalized weakness/debility secondary to acute illness Thrombocytopenia Hypernatremia/hyperchloremia-resolved Hyperlipidemia Tobacco abuse Depression Severe anxiety with history of panic disorder Physical Exam Const alert, oriented x3, no apparent distress, average body habitus, no limitations and well nourished; Negative for healthy appearing Constitutional Narrative: Frail-appearing, older, white male, sitting up in bed, appears comfortable currently, nontoxic, does appear older than stated age, watching television General Appearance: cooperative, comfortable, well kempt and well developed Orientation / Consciousness: awake, oriented to person, oriented to place and oriented to time Exam Limitations: no limitations Nutritional Appearance: overweight HEENT normocephalic, head/scalp atraumatic and moist oral mucous membranes HEENT Narrative: Mild hearing loss, Mallampati 2, no thrush Eyes PERRL, EOMs intact bilaterally and conjunctivae normal Eyes Narrative: No scleral icterus Neck no lymphadenopathy and supple Neck Narrative: Trachea midline, no thyroid enlargement Resp normal respiratory effort, no retractions, no use of accessory muscles and clear to auscultation bilaterally Resp Narrative: Diminished diffusely but clear Auscultation: Negative for crackles, rhonchi or wheezes Cardio regular rate, regular rhythm, S1 normal heart sound, S2 normal heart sound, no murmurs, no rub, no gallops and no clicks GI normal to inspection, nondistended, normoactive bowel sounds, soft to palpation and non-tender Extremity no clubbing, cyanosis or edema Extremity Narrative: Pedal pulses are 2+ Skin skin turgor normal and no jaundice Neuro oriented x3, moves all extremities, no focal motor deficits and no sensory deficits noted Neuro Narrative: Significant generalized weakness noted with no specific focal deficit Speech: speech normal Psych Psych Narrative: Affect is flat today, patient seems a bit depressed and anxious about discharge Mood & Affect: anxious Weight / BMI Weight Weight: 82.282 kg Body Mass Index (BMI) 26.0 ABG / Lab / Microbiology Data 11/19/23 06:15 11/19/23 06:15 Laboratory: Laboratory Results - last 24 hr 11/19/23 06:15: WBC 8.7, RBC 4.06 L, Hgb 12.1 L, Hct 38.0 L, MCV 93.6, MCH 29.8, MCHC 31.8 L, RDW Std Deviation 45.1 H, RDW Coeff of Jackie 13.3, Plt Count 141 L, MPV 12.5 H, Neut % (Auto) Not Reportable, Absolute Neuts (auto) 7.1, Absolute Lymphs (auto) 0.80 L, Total Counted 100, Neutrophils % (Manual) 82 H, Lymphocytes % (Manual) 9 L, Monocytes % (Manual) 7, Eosinophils % (Manual) 1, Metamyelocytes % 1, Diff Path Review June, Platelet Estimate SLT DEC, RBC Morphology NORM C+C, Sodium 143, Potassium 3.6, Chloride 111 H, Carbon Dioxide 28.0, Anion Gap 4 L, BUN 30 H, Creatinine 0.71, Estim Creat Clear Calc 88.72, Est GFR (MDRD) Af Amer 140, Est GFR (MDRD) Non-Af 116, BUN/Creatinine Ratio 42.1 H, Glucose 171 H, Calcium 8.0 L Microbiology: Microbiology 11/17/23 00:24 Stool Enteric Bacteriology - Final 11/17/23 00:24 Stool Clostridioides difficile (PCR) - Final 11/10/23 22:49 Blood Culture (Wb) - Anticubital Left Blood Culture - Final No growth in 5 days. 11/11/23 03:55 Sputum, Induced/Lukens Gram Stain - Final 11/11/23 03:55 Sputum, Induced/Lukens Respiratory Culture - Final Mixed normal respiratory delilah. No Streptococcus pneumoniae, beta-hemolytic Streptococcus or Staphylococcus aureus isolated. 11/10/23 22:20 Urine, Clean Catch Urine Culture - Final Mixed Gram Positive Organisms 11/11/23 07:45 Nasal Secretion MRSA (PCR) - Final Meth. resistant Staph. aureus 11/10/23 22:20 Mucosa - Nasopharyngeal SARS-CoV-2, Influenza & RSV (PCR) - Final D/C Instructions Please Follow Up With: Alen Barrow, DO Meaningful Use Info Meaningful Use Meaningful Use Diagnoses (Choose all that apply): None applicable Ischemic Stroke Statin Dosing Therapy Reference: STATIN DOSE THERAPY REFERENCE: * Patients > 75 years receive moderate or high dose statin therapy. * Patients 75 years or YOUNGER should receive HIGH intensity statin dose unless contraindicated. You will be required to document reason for non-treatment if statin daily dose does not meet guidelines. HIGH DOSE STATIN THERAPY DAILY Atorvastatin > than or = to 40 mg Rosuvastatin > than or = to 20 mg Amlodipine + Atorvastatin > than or = to 2.5/40 mg Ezetimibe + Simvastatin 10/80 mg Simvastatin 80mg Discharge Plan Admission Admit Date/Time: 11/11/23 01:56 Primary Reason for Your Visit: Shortness of Breath Attending Provider: Ashli Mercado Primary Care Provider: Sam Brower Chi Consulting Providers: Thong Johnson; Luis Ramos; Song Peters Discharge Orders/Prescriptions Prescriptions: New ipratropium-albuterol 0.5 mg-3 mg(2.5 mg base)/3 mL Solution For Nebulization 3 ml inhalation Q6H.RT Qty: 0 0RF guaifenesin 100 mg/5 mL Liquid 50 mg PO Q4H PRN PRN (Reason: Cough) Qty: 1000 0RF aspirin 81 mg Tablet,Chewable 81 mg PO BREAKFAST Qty: 0 0RF mupirocin 2 % Ointment 1 applic NASAL BID Qty: 0 0RF Protocol: *Topical Application Instructions APPLICATION INSTRUCTIONS: nasal Rx Instructions: Stop on am of 10/12 metoprolol tartrate 25 mg Tablet 25 mg PO BID Qty: 0 0RF acetaminophen 650 mg/20.3 mL Solution 650 mg PO Q6H PRN PRN (Reason: Fever) Qty: 0 0RF prednisone 10 mg tablet 10 mg PO DAILY Qty: 1 0RF Rx Instructions: 3 tablets x 4 days / 2 tablets x 4 days / 1 tablet x 4 days and then stop Continued trazodone 50 MG tablet 50 mg PO QHS simvastatin 40 MG tablet 40 mg PO DAILY risperidone 2 MG tablet 2 mg PO BID bupropion HCl 150 MG tablet extended release 24 hr 150 mg PO BID albuterol sulfate 90 mcg/actuation HFA aerosol inhaler 2 puff inhalation Q4H PRN (Reason: sob ) Trelegy Ellipta 100-62.5-25 mcg blister with device 1 ea inhalation DAILY naproxen 500 mg tablet 500 mg PO BID PRN (Reason: pain) clonazepam 0.5 mg tablet 0.5 mg PO Q8H PRN (Reason: anxiety) Referrals / Follow Up: Alen Barrow DO [Med Staff - Active Staff] - Within 3 Months () Sam Brower Chi, MD [Primary Care Provider] - Disposition Disposition (needs filled in before D/C Order can be placed): Intermediate Facility Charges/Coding Visit Charges Inpatient E&M: 52963 SNF Disch >30 Min
[2023-11-20 13:54] LABS: Pathologist Review Reviewed
== END 2023-11-19 16:51 | disposition skilled nursing facility (03) | DRG 871 ==
LOC: ED 11-11 01:56 → ICU 11-11 03:07 → PCU 11-14 15:15
PROVIDERS: Family Medicine; Internal Medicine; Internal Medicine Critical Care Medicine; Specialist; Admitting Provider Family Medicine; Emergency Provider Emergency Medicine; PCP Family Medicine Geriatric Medicine; Visit Provider Internal Medicine
DX: A41.9 Sepsis, unspecified organism (principal); J96.01 Acute respiratory failure with hypoxia; R65.21 Severe sepsis with septic shock; J18.9 Pneumonia, unspecified organism; E87.20 Acidosis, unspecified; E87.0 Hyperosmolality and hypernatremia; J44.0 Chronic obstructive pulmonary disease with (acute) lower respiratory infection; D69.6 Thrombocytopenia, unspecified; F32.A Depression, unspecified; E78.5 Hyperlipidemia, unspecified; F41.9 Anxiety disorder, unspecified; F17.210 Nicotine dependence, cigarettes, uncomplicated; E87.6 Hypokalemia; E87.8 Other disorders of electrolyte and fluid balance, not elsewhere classified; R19.7 Diarrhea, unspecified; R13.10 Dysphagia, unspecified; Z79.51 Long term (current) use of inhaled steroids; Z79.899 Other long term (current) drug therapy
CPT/HCPCS: 31500; 31720; 36415; 36600; 70450; 71045; 71275; 74230; 80048; 80053; 80076; 80202; 81001; 82550; 82803; 82962; 83036; 83605; 83690; 83735; 83880; 84100; 84478; 84484; 85025; 85610; 85652; 85730; 86140; 87040; 87070; 87086; 87088; 87205; 87493; 87506; 87631; 87641; 92526; 92610; 92611; 93005; 93306; 94002; 94003; 94640; 94660; 94762; 97110; 97116; 97162; 97166; 97530; 97535; 97802; 97803; 99252; 99285; J7030; J7040; J7050; Q9967; A4216; C1751; G0463; J1940; J3490

== ENCOUNTER → 2024-09-02 | Outpatient (CLI) | payer MEDICARE, MEDICAID, SELFPAY ==
[2024-09-02 16:26] LABS: Hematocrit 43.8 % (40-54); Hemoglobin 14.7 g/dL (13.0-16.5); Immature Granulocytes Count 0.050 X10^3/uL (0.0-0.0); Mean Corp Hgb Conc 33.6 g/dL (32-36); Mean Corpuscular Volume 88.5 fL (80-94); Mean Platelet Vol. 11.5 fl (6.2-12.0); NRBC Flagged by Analyzer 0 % (0-5); Platelet Count 158 K/mm3 (150-450); RBC Distribution Width CV 12.3 % (11.6-14.6); RBC Distribution Width SD 40.0 fl (35.1-43.9); Red Blood Count 4.95 M/mm3 (4.6-6.2); White Blood Count 6.3 K/mm3 (4.4-11.0)
[2024-09-02 19:04] LABS: AST(SGOT) 16 U/L (<=37); Alanine Aminotransfer ALT/SGPT 18 U/L (<=46); Albumin, Serum 4.2 g/dL (3.4-4.8); Alkaline Phosphatase 134 U/L (40-129); Anion Gap 15 (5-15); BUN 18 mg/dL (4-19); BUN/Creat Ratio 17.9 RATIO (10-20); Calcium,Total 9.3 mg/dL (7.6-11.0); Carbon Dioxide 20.3 mmol/L (21.0-32.0); Chloride 106 mmol/L (98-108); Cholesterol 117 mg/dL (<=200); Globulin 2.5 g/dL (2.2-4.2); Glucose 113 mg/dL (70-99); Low Density Lipoprotein Calc. 54 mg/dL; PSA,Total - Annual Screen 0.85 ng/mL (0.02-4.00); Potassium 4.8 mmol/L (3.3-5.1); Triglycerides 110 mg/dL; Very Low Density Lipoprotein 22 mg/dL (5-40); Vitamin D,25 Hydroxy 11.0 ng/mL (30-100); cholesterol:hdl ratio screen 2.82
[2024-09-03 00:02] LABS: Xtra Tube Kwok EXTRA TUBE
== END | disposition home or self-care (01) ==
LOC: POLAB3 16:00
PROVIDERS: PCP Family Medicine Geriatric Medicine; Visit Provider Family Medicine Geriatric Medicine
DX: E78.5 Hyperlipidemia, unspecified (principal); E55.9 Vitamin D deficiency, unspecified; R53.83 Other fatigue; Z12.5 Encounter for screening for malignant neoplasm of prostate
CPT/HCPCS: 36415; 80053; 80061; 82306; 84153; 84443; 85025; G0103

== ENCOUNTER → 2024-09-16 | Outpatient (CLI) | payer MEDICARE, MEDICAID, SELFPAY ==
[2024-09-18 05:07] LABS: PROLACTIN 27.3 ng/mL (3.6-25.2)
== END | disposition home or self-care (01) ==
LOC: MTLAB 14:53
PROVIDERS: PCP Family Medicine Geriatric Medicine; Referring Provider Registered Nurse; Visit Provider Registered Nurse
DX: Z79.899 Other long term (current) drug therapy (principal)
CPT/HCPCS: 36415; 83036; 84146